=== PATIENT | male | born 1965 | race Caucasian/White ===

== ENCOUNTER 2024-12-21 21:26 | Emergency (ER) | payer OTHER, SELFPAY ==
[2024-12-21 21:27] VITALS: BP 168/92; PULSE 80; RESP 18; TEMP 36.7; O2SAT 98; BMI 36.2
--- NOTE | 2024-12-21 22:00 | RAD_ITS ---
PROCEDURE: RIGHT ELBOW MIN 3 VIEWS 12/21/2024 REASON FOR EXAM: FALL TECHNIQUE: RIGHT ELBOW MIN 3 VIEWS COMPARISON: None. FINDINGS: Amorphous calcific density/bony fragment in the dorsal elbow soft tissues posterior to the distal humerus, which is acutely avulsed from the dorsal olecranon process, consistent with acute avulsion of triceps tendon with displaced enthesopathic spur fracture fragment. No additional acute fracture, or dislocation is present. Preserved joint spaces. No joint effusion. Soft tissue swelling along the dorsal aspect of the elbow and upper forearm. RAD/Elbow min 3 Views IMPRESSION: Acute displaced/retracted avulsion fracture of enthesopathic spur fragments fro m the dorsal olecranon process at the triceps tendon insertion. Presumed at least partial triceps rupture. Reading Location: [id number]
--- NOTE | 2024-12-21 22:00 | RAD_ITS ---
PROCEDURE: RIGHT ELBOW MIN 3 VIEWS 12/21/2024 REASON FOR EXAM: FALL TECHNIQUE: RIGHT ELBOW MIN 3 VIEWS COMPARISON: None. FINDINGS: Amorphous calcific density/bony fragment in the dorsal elbow soft tissues posterior to the distal humerus, which is acutely avulsed from the dorsal olecranon process, consistent with acute avulsion of triceps tendon with displaced enthesopathic spur fracture fragment. No additional acute fracture, or dislocation is present. Preserved joint spaces. No joint effusion. Soft tissue swelling along the dorsal aspect of the elbow and upper forearm. RAD/Elbow min 3 Views IMPRESSION: Acute displaced/retracted avulsion fracture of enthesopathic spur fragments fro m the dorsal olecranon process at the triceps tendon insertion. Presumed at least partial triceps rupture. Reading Location: [id number]
--- OUTSIDE RECORDS SUMMARY | 2024-12-21 22:17 | XMS RPT_ITS | CCD ---
Author Organization [facility] Care Team Providers Care Electrical Maintenance Engineer Name Role Phone HILLS, KAYLYN Admitting Unavailable HILLS, KAYLYN Primary Care Unavailable HILLS, KAYLYN Consulting Unavailable HILLS, KAYLYN Attending Unavailable PROVIDER, UNKNOWN Consulting Unavailable HILLS, KAYLYN Primary Care Unavailable HILLS, KAYLYN Consulting Unavailable HILLS, KAYLYN Attending Unavailable HILLS, KAYLYN Admitting Unavailable PROVIDER, UNKNOWN Consulting Unavailable Jazmine RN, Maria Elena Wallis Unavailable Unavailabl e Dami Good DO Primary Care Provider [facility] BRANCH MAKER.Lila CASTILLO Unavailable [facility] BRANCH MAKER.Meg CASTILLO Unavailable DAMI GOOD Primary Care Unavailable JENNA LEONARD Attending Unavailable DAMI GOOD Referring Unavailable DAMI GOOD Attending Unavailable TESTJASMIN LEYVA Attending Unavailable TESTRAKEJASMIN Referring Unavailable JESSE TORRES Referring Unavailable DOMINIQUE, JESSE Attending Unavailable SELF Referring Unavailable JESSE TORRES Attending Unavailable HARINI MARIANO Referring Unavailable MONTSERRAT, HARINI Referring Unavailable HARINI MARIANO Attending Unavailable JOHN ANDERSON Referring Unavailable SELF Referring Unavailable JOHN ANDERSON Attending Unavailable CLARK KUHN Attending Unavailable JENNA LEONARD Referring Unavailable DAMI GOOD Primary Care Unavailable Allergies Allergy Classification Reported Allergen(s) Allergy Type Date of Onset Reaction(s) Facility (1 source) Penicillin Drug Allergy [facility] Repository (20 sources) Penicillins; Translations: [PENICILLINS] Drug Allergy 07-31-2024 Anaphylaxis [facility] (8 sources) Lisinopril; Translations: [LISINOPRIL] Drug Allergy 11-10-2024 Intolerance [facility] Medications Current Medications Medication Drug Class(es) Dates Sig (Normalized) Sig (Original) amLODIPine 5 mg oral tablet (20 sources) Dihydropyridine Calcium Channel All Start: 11-11-2024 End: 03-07-2025 take 1 tablet by mouth twice daily amLODIPine (NORVASC) 5 mg tablet Indications: Hypertension, essential Take 1 tablet by mouth two times a day. 180 tablet 12/07/2024 11:00 AM EDT 11/25/2024 03/07/2025 Active Start: 09-14-2024 End: 11-10-2024 take 1 tablet by mouth once daily amLODIPine (NORVASC) 5 mg tablet Take 1 tablet by mouth once daily. 90 tablet 1 11/04/2024 11/10/2024 Discontinued Start: 09-03-2023 End: 09-09-2024 take 1 tablet by mouth twice daily in the evening amLODIPine (NORVASC) 5 mg tablet Take 1 tablet by mouth twice daily 180 tablet 03/18/2024 1:21 PM EST 03/12/2024 09/09/2024 Discontinued (Course of therapy completed) Start: 06-06-2023 End: 09-09-2024 take 1 tablet by mouth once daily in the evening amLODIPine (NORVASC) 5 mg tablet TAKE 1 TABLET BY MOUTH EVERY DAY 90 tablet 3 07/22/2023 4:05 PM EDT 06/06/2023 09/09/2024 Discontinued (Course of therapy completed) losartan potassium 100 mg oral tablet (20 sources) Angiotensin 2 Receptor All Start: 06-03-2023 End: 11-25-2024 take 1 tablet by mouth once daily losartan (COZAAR) 100 mg tablet Take 1 tablet by mouth once daily. 90 tablet 3 11/30/2024 10:59 AM EDT 11/25/2024 Active metFORMIN hydrochloride 500 mg oral tablet (20 sources) Biguanide Start: 11-04-2024 End: 11-25-2024 take 1 tablet by mouth twice daily at mealtime metFORMIN (GLUCOPHAGE) 500 mg tablet Take 1 tablet by mouth two times a day with meals. 180 tablet 3 11/30/2024 10:59 AM EDT 11/25/2024 Active Start: 09-03-2023 End: 09-09-2024 take 1 tablet by mouth twice daily in the morning metFORMIN ER (GLUCOPHAGE XR) 500 mg 24 hr tablet Take 1(one) tablet by mouth two times a day. 180 tablet 06/09/2024 8:22 AM EST 05/22/2024 09/09/2024 Discontinued (Course of therapy completed) Completed/Discontinued Medications Medication Drug Class(es) Dates Sig (Normalized) Sig (Original) 30 ml bupivacaine hydrochloride 5 mg/ml injection (2 sources) Amide Local Anesthetic Start: 09-09-2024 End: 09-09-2024 BUPivacaine (PF) 0.5 % (5 mg/mL) 4 mL injection Start: 09-09-2024 End: 09-09-2024 4 mL, Injection - FOR ORTHO USE ONLY, ONCE, 1 dose, Starting on Sat09/09/24 at 1453, Until Sat09/09/24 at 145 1 ml dexamethasone phosphate 4 mg/ml injection (2 sources) Corticosteroid Start: 09-09-2024 End: 09-09-2024 dexAMETHasone sodium phosphate 4 mg injection (DECADRON) Start: 09-09-2024 End: 09-09-2024 4 mg, Injection - FOR ORTHO USE ONLY, ONCE, 1 dose, Starting on Sat09/09/24 at 1453, Until Sat09/09/24 at 1453 doxycycline monohydrate 100 mg oral tablet (2 sources) Tetracycline-class Drug Start: 09-02-2024 End: 09-07-2024 take 1 tablet by mouth twice daily doxycycline monohydrate 100 mg tablet Indications: Open wound Take 1 tablet by mouth two times a day for 5 days. 10 tablet 09/02/2024 09/07/2024 Discontinued (Course of therapy completed) 10 ml lidocaine hydrochloride 10 mg/ml injection (2 sources) Antiarrhythmic, Amide Local Anesthetic Start: 09-09-2024 End: 09-09-2024 lidocaine (PF) 10 mg/mL (1 %) 4 mL injection (XYLOCAINE) Start: 09-09-2024 End: 09-09-2024 4 mL, Injection - FOR ORTHO USE ONLY, ONCE, 1 dose, Starting on Sat09/09/24 at 1453, Until Sat09/09/24 at 1453 1 ml triamcinolone acetonide 40 mg/ml injection (2 sources) Corticosteroid Start: 09-09-2024 End: 09-09-2024 triamcinolone acetonide 40 mg injection (KeNALog 40) Start: 09-09-2024 End: 09-09-2024 40 mg, Injection - FOR ORTHO USE ONLY, ONCE, 1 dose, Starting on Sat09/09/24 at 1453, Until Sat09/09/24 at 1453 Problems Active Problems Problem Classification Problem Date Documented Da te Episodic/Chronic Acquired foot deformities (2 sources) Toe joint rigid; Translations: [Hallux rigidus, left foot] Onset: 10-08-2024 10-08-2024 Chronic Acquired foot deformities (2 sources) Toe joint rigid; Translations: [Hallux rigidus, right foot] Onset: 10-08-2024 10-08-2024 Chronic Allergic reactions (2 sources) Allergy to nut; Translations: [Allergy to other foods] Onset: 11-07-2024 11-04-2024 Episodic Blindness and vision defects (3 sources) Bilateral myopia of eyes; Translations: [Myopia, bilateral] 07-31-2024 Episodic Diabetes mellitus with complications (3 sources) Type 2 diabetes mellitus with ketoacidosis without coma; Translations: [Polyneuropathy due to type 2 diabetes mellitus] Onset: 06-11-2023 10-08-2024 Chronic Diabetes mellitus without complication (14 sources) Diabetes mellitus type 2 without retinopathy; Translations: [Type 2 diabetes mellitus without complications] Onset: 01-01-2023 07-31-2024 Chronic Disorders of lipid metabolism (2 sources) Dyslipidemia; Translations: [Hyperlipidemia, unspecified] Onset: 11-07-2024 11-04-2024 Chronic Essential hypertension (4 sources) Essential hypertension; Translations: [Essential (primary) hypertension] Onset: 11-07-2024 11-04-2024 Chronic Joint disorders and dislocations; trauma-related (6 sources) Derangement of medial meniscus of right knee; Translations: [Other meniscus derangements, unspecified medial meniscus, right knee] Onset: 11-04-2024 09-18-2024 Chronic Other injuries and conditions due to external causes (3 sources) Open wound; Translations: [Other injury of unspecified body region, initial encounter] 09-02-2024 Episodic Other injuries and conditions due to external causes (5 sources) Injury of upper extremity; Translations: [Unspecified injury of right shoulder and upper arm, initial encounter] 12-20-2024 Episodic Other injuries and conditions due to external causes (1 source) Unspecified injury of right shoulder and upper arm, initial encounter; Translations: [Upper limb injury, right, initial encounter] Onset: 12-20-2024 Episodic Other non-traumatic joint disorders (1 source) Effusion of right knee joint; Translations: [Effusion, right knee] 09-09-2024 Episodic Other screening for suspected conditions (not mental disorders or infectious disease) (2 sources) Patient encounter status; Translations: [Encounter for screening for malignant neoplasm of prostate] Onset: 11-07-2024 11-04-2024 Episodic Superficial injury; contusion (2 sources) Contusion of right elbow; Translations: [Contusion of right elbow, initial encounter] Onset: 12-20-2024 12-20-2024 Episodic Past or Other Problems Problem Classification Problem Date Documented Da te Episodic/Chronic Open wounds of extremities (2 sources) Laceration of finger without foreign body; Translations: [Laceration without foreign body of right index finger with damage to nail, initial encounter] Onset: 09-09-2024 09-09-2024 Episodic Other connective tissue disease (1 source) Pain in unspecified toe(s); Translations: [Pain in unspecified toe(s)] Onset: 09-27-2023 Episodic Other injuries and conditions due to external causes (1 source) Other injury of unspecified body region, initial encounter; Translations: [Open wound] Onset: 09-02-2024 Episodic Other non-traumatic joint disorders (3 sources) Pain in right knee; Translations: [Pain in joint, lower leg] Onset: 09-07-2024 09-07-2024 Episodic Other non-traumatic joint disorders (1 source) Effusion, right knee; Translations: [Effusion of right knee joint] Onset: 09-09-2024 Episodic Sprains and strains (2 sources) Sprain of right knee; Translations: [Sprain of unspecified site of right knee, initial encounter] Onset: 09-09-2024 09-09-2024 Episodic Unclassified (3 sources) Acute pain of right knee 09-07-2024 Results Test Name Value Interpretation Reference Range Facility [facility] 12-20-2024 CNOV Office Visit (WOUCA) CONNER KONG ([id number]) 1965 M Date Time Provider Department 12/20/24 2:45 PM JENNA LEONARD During your visit today, we recorded the following information about you: Temperature Pulse Respiration Blood pressure 97.2 degrees 80/minute 20/minute 148/86 Weight 102.6 kg Jenna Leonard APRN.SENIOR TELECOMMUNICATIONS TECHNICIAN 12/20/2024 3:44 PM Signed [facility] Subjective Conner Kong is a 59 year old male. Patient presents with: Trauma: Right elbow shooting up arm Trauma Right Elbow Pain: - Acute onset of right elbow pain following a fall in the garage a few hours ago. - Slipped while turning towards the refrigerator, landing on the buttocks and elbow. - Denies numbness or tingling. - Pain localized to the elbow, with tenderness noted. - Denies extending hand or wrist during the fall. Review of Systems Musculoskeletal: (+) elbow tenderness Neurological: (-) numbness, (-) tingling Objective BP 148/86 Pulse 80 Temp 36.2 ?C (97.2 ?F) Resp 20 Wt 102.6 kg (226 lb 3.1 oz) SpO2 97% BMI 34.28 kg/m? PAST MEDICAL HISTORY[1] No past surgical history on file. ALLERGIES Penicillins and Lisinopril MEDICATIONS amLODIPine (NORVASC) 5 mg tablet Take 1 tablet by mouth two times a day. losartan (COZAAR) 100 mg tablet Take 1 tablet by mouth once daily. metFORMIN (GLUCOPHAGE) 500 mg tablet Take 1 tablet by mouth two times a day with meals. lancets ([employer]view DELLinkMe[employer] PLUS LANCET) 30 gauge Use as directed to test blood sugar twice daily FAMILY HISTORY[2] SOCIAL HISTORY[3] Physical Exam Cardiovascular: Rate and Rhythm: Normal rate. Pulses: Normal pulses. Pulmonary: Effort: Pulmonary effort is normal. Musculoskeletal: Right shoulder: Normal. Right elbow: Effusion present. Normal range of motion. Tenderness present in lateral epicondyle. Right forearm: Normal. Right wrist: Normal. Arms: { 1. Upper limb injury, right, initial encounter (S49.91XA) 2. Contusion of right elbow, initial encounter (S50.01XA) - Acute right elbow injury after fall onto concrete surface; pain localized to bursa region with full extension and rotation preserved. - Differential includes bursitis versus avulsion fracture. - Pending radiology read, patient declines posterior splint, patient put in sling. and Recording using Branch software for draft documentation of the visit was discussed with the patient/authorized public relations representative; all questions welcomed and answered. Patient/authorized public relations representative agreed to proceed MDM patient well-appearing nontoxic in no acute distress 59-year-old male that presents with a right contusion of his elbow. Avulsion fracture versus old previous injury. Patient put in a sling declines a long-arm splint. No concerns of neurovascular deficits, tendon rupture, or nerve impingement. Discussed Tylenol ibuprofen sling and to follow-up with Dr. Torres on Saturday at 3 PM did discuss he can access his MyChart for radiology read did discuss an overview x-ray in the presence of the patient based on my initial read. Any sudden increase in pain, or worsening symptoms return for reevaluation. Patient verbalized understanding and agreement this plan. [1] Past Medical History: No date: Diabetes mellitus (HCC) No date: Essential hypertension [2] Review of patient's family history indicates: Problem: Glaucoma Relation: Mother Age of Onset: (Not Specified) Problem: Colon Cancer Relation: Father Age of Onset: (Not Specified) Problem: Diabetes Relation: Maternal Grandmother Age of Onset: (Not Specified) [3] Social History Tobacco Use Smoking status: Never Smokeless tobacco: Never Vaping Use Vaping status: Never Used Substance Use Topics Alcohol use: Yes Comment: socially Drug use: Never Allergies As of Date: 12/20/2024 Noted Allergy Reaction PENICILLINS 07/31/2024 10 - Anaphylaxis LISINOPRIL 11/10/2024 5 - Intolerance Comments: Angio Edema Date Reviewed: 12/20/2024 Reviewed by: Sonya Cabezas MA - Fully Assessed Reason for Visit: Trauma [112] Cmt: Right elbow shooting up arm Primary Visit Diagnosis:Upper limb injury, right, initial encounter [S49.91XA] Other Visit Diagnosis:Contusion of right elbow, initial encounter [S50.01XA] Order(s):XR ELBOW SPECIAL VIEWS AP/LAT/OTHER RIGHT [7342305] Order #: [id number] FUTURE CONSULT TO ORTHOPAEDICS [9005] Order #: [id number]: 1 FUTURE Prescriptions as of 12/20/2024 - amLODIPine (NORVASC) 5 mg tablet Take 1 tablet by mouth two times a day. - losartan (COZAAR) 100 mg tablet Take 1 tablet by mouth once daily. - metFORMIN (GLUCOPHAGE) 500 mg tablet Take 1 tablet by mouth two times a day with meals. - lancets (Investview DELICA PLUS LANCET) 30 gauge Use as directed to test blood sugar twice daily Problem List As Of Date 12/20/2024 Noted Resolved Type 2 diabetes melli (more content not included)... Normal [facility] XR ELBOW 3V AP/LAT/OTHER RTo n 12-20-2024 XR ELBOW 3V AP/LAT/OTHER RT * * *Final Report* * * DATE OF EXAM: Dec 20 2024 3:14PM WOX [id number] - XR ELBOW 3V AP/LAT/OTHER RT / PROCEDURE REASON: Upper limb injury, right, initial encounter * * * * Physician Interpretation * * * * EXAMINATION: XR ELBOW 3V AP/LAT/OTHER RT CLINICAL HISTORY: Right elbow injury Technique: XR ELBOW 3V AP/LAT/OTHER RT -- RIGHT with 4 views on 4 images Comparison: None RESULT: No acute fracture or dislocation. Joint spaces are maintained. Small enthesophyte on the left lung process. IMPRESSION: No acute osseous abnormality Claims Clerk: PSCB Transcribe Date/Time: Dec 20 2024 4:06P Dictated by : SARAH SANDOVAL MD This examination was interpreted and the report reviewed and electronically signed by: SARAH SANDOVAL MD on Dec 20 2024 4:07PM EST [id number] Normal [facility] XR Elbow - right AP and Late ral and obliqueon 12-20-2024 IMPRESSION: No acute osseous abnormality Claims Clerk: PSCB Transcribe Date/Time: Dec 20 2024 4:06P Dictated by : SARAH SANDOVAL MD This examination was interpreted and the report reviewed and electronically signed by: SARAH SANDOVAL MD on Dec 20 2024 4:07PM EST DIVISION OF RADIOLOGY * * *Final Report* * * DATE OF EXAM: Dec 20 2024 3:14PM WOX [id number] - XR ELBOW 3V AP/LAT/OTHER RT / PROCEDURE REASON: Upper limb injury, right, initial encounter * * * * Physician Interpretation * * * * EXAMINATION: XR ELBOW 3V AP/LAT/OTHER RT CLINICAL HISTORY: Right elbow injury Technique: XR ELBOW 3V AP/LAT/OTHER RT -- RIGHT with 4 views on 4 images Comparison: None RESULT: No acute fracture or dislocation. Joint spaces are maintained. Small enthesophyte on the left lung process. DIVISION OF RADIOLOGY Provider, [facility] - 12/20/2024 * * *Final Report* * * DATE OF EXAM: Dec 20 2024 3:14PM WOX [id number] - XR ELBOW 3V AP/LAT/OTHER RT / PROCEDURE REASON: Upper limb injury, right, initial encounter * * * * Physician Interpretation * * * * EXAMINATION: XR ELBOW 3V AP/LAT/OTHER RT CLINICAL HISTORY: Right elbow injury Technique: XR ELBOW 3V AP/LAT/OTHER RT -- RIGHT with 4 views on 4 images Comparison: None RESULT: No acute fracture or dislocation. Joint spaces are maintained. Small enthesophyte on the left lung process. IMPRESSION IMPRESSION: No acute osseous abnormality Claims Clerk: MONSERRAT Transcribe Date/Time: Dec 20 2024 4:06P Dictated by : SARAH SANDOVAL MD This examination was interpreted and the report reviewed and electronically signed by: SARAH SANDOVAL MD on Dec 20 2024 4:07PM [facility] Radiology Study observation (narrative) [facility] XR Elbow - right AP and Late ral and obliqueOrdered By: Ccf Provider on 12-20-2024 [facility] Lewis 11-10-2024 CNPN Telephone (FAMPWS) CONNER KONG ([id number]) 1965 M Date Time Provider Department 11/10/24 DAMI GOOD During your visit today, we recorded the following information about you: Germania White RN 11/10/2024 3:35 PM Signed Spouse (Shae) calls to report that [facility] will not allow patient to refill the amlodipine as it is too soon to refill based on prescription sent is for once daily. Order sent in is for once daily and patient takes amlodipine 5 mg twice daily as previously ordered by Kaylyn BILLINGSLEY. Pended request. Patient has two pills left. ROHIT Myers Alyson Taylor, APRN.CNP 11/11/2024 9:26 AM Signed PDMP website checked and validated. All prescriptions have been APPROPRIATELY filled. No suspicious activity was identified. 11/11/2024 by Mara White APRN.CNP The following approved medication requests have been transmitted electronically. Requested Prescriptions Signed Prescriptions Disp Refills amLODIPine (NORVASC) 5 mg tablet 180 tablet 0 Sig: Take 1 tablet by mouth two times a day. Authorizing Provider: MARA WHITE APRN.CNP Allergies As of Date: 11/10/2024 Noted Allergy Reaction PENICILLINS 07/31/2024 10 - Anaphylaxis LISINOPRIL 11/10/2024 5 - Intolerance Comments: Angio Edema Date Reviewed: 11/04/2024 Reviewed by: Danielle Mccall LPN - Fully Assessed Reason for Visit: Medication Problem [65] Primary Visit Diagnosis:Hypertension, essential [I10] Order(s):amLODIPine (NORVASC) 5 mg tabletTake 1 tablet by mouth two times a day.Disp: 180 tabletRfl: 0 Prescriptions as of 11/11/2024 - amLODIPine (NORVASC) 5 mg tablet Take 1 tablet by mouth two times a day. - losartan (COZAAR) 100 mg tablet Take 1 tablet by mouth once daily. - metFORMIN (GLUCOPHAGE) 500 mg tablet Take 1 tablet by mouth two times a day with meals. - lancets (ONETOUCH DELICA PLUS LANCET) 30 gauge Use as directed to test blood sugar twice daily Problem List As Of Date 11/10/2024 Noted Resolved Type 2 diabetes mellitus (HCC) [E11.9] 01/01/2023 Prescriptions ordered this encounter Disp Refills Start End AMLODIPINE 5 MG TABLET 180 * 0 11/11/2024 02/09/2025 Route: PO Sig: Take 1 tablet by mouth two times a day. Medications Discontinued During This Encounter Prescriptions - amLODIPine (NORVASC) 5 mg tablet (Discontinued) Take 1 tablet by mouth once daily. Encounter Status:Closed by MARA WHITE on 11/11/24 Normal [facility] ALBUMIN/CREATININE RATIO, UR INEon 11-07-2024 Albumin DL <= 20 mg/L (U) [Mass/Vol] mg/dL Normal [facility] 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: Order Comment: Speci men Type: URINE SPECIMENOrdering Facility: [facility] Address: [address] [place] [address] Performed By: #### U ACR ####[facility] LABCLIA [id number] [place] [address] [place] Albumin/Creatinine (U) [Mass ratio] <4 Normal <30 [facility] 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: Order Comment: Speci men Type: URINE SPECIMENOrdering Facility: [facility] Address: [address] [place] [address] Result Comment: Adul t Male and Female Nephrotic Criteria: <30 mg/g is considered normal to mildly increased 30-300 mg/g is considered moderately increased >300 mg/g is considered severely increased KDIGO. (2013). KDIGO 2012 Clinical Practice Guideline for the Evaluation and Management of Chronic Kidney Disease. Official Journal of the International Society of Nephrology, 3(1), 1-150. Performed By: #### U ACR ####[facility] LABCLIA [id number] [place] [id number] [place] Creatinine (U) [Mass/Vol] 272.7 mg/dL Normal 20.0-300.0 [facility] 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: Order Comment: Speci men Type: URINE SPECIMENOrdering Facility: [facility] Address: [address] [place] [address] Performed By: #### U ACR ####[facility] LABCLIA [id number] [address] [place] [address] [place] CBC W Auto Differential pane l (Bld)on 11-07-2024 Basophils (Bld) [#/Vol] 0.05 10*3/uL Normal <0.11 [facility] 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: Order Comment: Speci men Type: BLOOD SPECIMENOrdering Facility: [facility] Address: [address] [place] [address] Performed By: #### 5 7021-8 ####[facility] LABCLIA [id number] [address], [facility] [place] Basophils/100 WBC (Bld) 0.9 % Normal [facility] 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: Order Comment: Speci men Type: BLOOD SPECIMENOrdering Facility: [facility] Address: [address] [place] [address] Performed By: #### 5 7021-8 ####[facility] LABCLIA [id number] [address], [place] [address] [place] Differential cell count method Nom (Bld) Auto Normal [facility] 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: Order Comment: Speci men Type: BLOOD SPECIMENOrdering Facility: [facility] Address: [address] [place] [address] Performed By: #### 5 7021-8 ####[facility] LABCLIA [id number] [address], [facility] [place] Eosinophils (Bld) [#/Vol] 0.17 10*3/uL Normal <0.46 [facility] 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: Order Comment: Speci men Type: BLOOD SPECIMENOrdering Facility: [facility] Address: [address] [place] [address] Performed By: #### 5 7021-8 ####[facility] LABCLIA [id number] [address], [facility]95 [place] Eosinophils/100 WBC (Bld) 3.2 % Normal [facility] 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: Order Comment: Speci men Type: BLOOD SPECIMENOrdering Facility: [facility] Address: [address] [place] [address] Performed By: #### 5 7021-8 ####[facility] LABIA [id number] [place] [address] [place] Erythrocyte distribution width (RBC) [Ratio] 13.7 % Normal 11.5-15.0 [facility] 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: Order Comment: Speci men Type: BLOOD SPECIMENOrdering Facility: [facility] Address: [address] [place] [address] Performed By: #### 5 7021-8 ####[facility] LABIA [id number] [place] [address] [place] Hematocrit (Bld) [Volume fraction] 45.0 % Normal 39.0-51.0 [facility] 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: Order Comment: Speci men Type: BLOOD SPECIMENOrdering Facility: [facility] Address: [address] [place] [address] Performed By: #### 5 7021-8 ####[facility] LABIA [id number] [place] [address] [place] Hemoglobin (Bld) [Mass/Vol] 14.5 g/dL Normal 13.0-17.0 [facility] 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: Order Comment: Speci men Type: BLOOD SPECIMENOrdering Facility: [facility] Address: [address] [place] [address] Performed By: #### 5 7021-8 ####[facility] [facility] [id number] [place] [address] [place] Immature granulocytes (Bld) [#/Vol] 0.05 10*3/uL Normal <0.10 [facility] 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: Order Comment: Speci men Type: BLOOD SPECIMENOrdering Facility: [facility] Address: [address] [place] [address] Performed By: #### 5 7021-8 ####[facility] LABCLIA [id number] [place] [address] [place] Immature granulocytes/100 WBC (Bld) 0.9 % Normal [facility] 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: Order Comment: Speci men Type: BLOOD SPECIMENOrdering Facility: [facility] Address: [address] [place] [address] Performed By: #### 5 7021-8 ####[facility]IA [id number] [place] [address] [place] Lymphocytes (Bld) [#/Vol] 1.46 10*3/uL Normal 1.00-4.00 [facility] 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: Order Comment: Speci men Type: BLOOD SPECIMENOrdering Facility: [facility] Address: [address] [place] [address] Performed By: #### 5 7021-8 ####[facility]IA [id number] [place] [address] [place] Lymphocytes/100 WBC (Bld) 27.2 % Normal [facility] 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: Order Comment: Speci men Type: BLOOD SPECIMENOrdering Facility: [facility] Address: [address] [place] [address] Performed By: #### 5 7021-8 ####[facility]IA [id number] [place] [address] [place] MCH (RBC) [Entitic mass] 27.8 pg Normal 26.0-34.0 [facility] 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: Order Comment: Speci men Type: BLOOD SPECIMENOrdering Facility: [facility] Address: [address] [place] [address] Performed By: #### 5 7021-8 ####[facility]IA [id number] [place] [id number] [place] MCHC (RBC) [Mass/Vol] 32.2 g/dL Normal 30.5-36.0 [facility] 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: Order Comment: Speci men Type: BLOOD SPECIMENOrdering Facility: [facility] Address: [address] [place] [address] Performed By: #### 5 7021-8 ####[facility] LABCLIA [id number] [place] [address] [place] MCV (RBC) [Entitic vol] 86.2 fL Normal 80.0-100.0 [facility] 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: Order Comment: Speci men Type: BLOOD SPECIMENOrdering Facility: [facility] Address: [address] [place] [address] Performed By: #### 5 7021-8 ####[facility] LABCLIA [id number] [place] [address] [place] Monocytes (Bld) [#/Vol] 0.51 10*3/uL Normal <0.87 [facility] 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: Order Comment: Speci men Type: BLOOD SPECIMENOrdering Facility: [facility] Address: [address] [place] [address] Performed By: #### 5 7021-8 ####[facility] LABCLIA [id number] [place] [address] [place] Monocytes/100 WBC (Bld) 9.5 % Normal [facility] 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: Order Comment: Speci men Type: BLOOD SPECIMENOrdering Facility: [facility] Address: [address] [place] [address] Performed By: #### 5 7021-8 ####[facility] LABCLIA [id number] [place] [address] [place] Neutrophils (Bld) [#/Vol] 3.13 10*3/uL Normal 1.45-7.50 [facility] 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: Order Comment: Speci men Type: BLOOD SPECIMENOrdering Facility: [facility] Address: [address] [place] [address] Performed By: #### 5 7021-8 ####[facility] LABCLIA [id number] [place] [address] [place] Neutrophils/100 WBC (Bld) 58.3 % Normal [facility] 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: Order Comment: Speci men Type: BLOOD SPECIMENOrdering Facility: [facility] Address: [address] [place] [address] Performed By: #### 5 7021-8 ####[facility] LABCLIA [id number] [place] [address] [place] Nucleated RBC (Bld) [#/Vol] 10*3/uL Normal <0.01 [facility] 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: Order Comment: Speci men Type: BLOOD SPECIMENOrdering Facility: [facility] Address: [address] [place] [address] Performed By: #### 5 7021-8 ####[facility]IA [id number] [place] [address] [place] Nucleated RBC/100 WBC (Bld) [Ratio] 0.0 /100 WBC Normal [facility] 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: Order Comment: Speci men Type: BLOOD SPECIMENOrdering Facility: [facility] Address: [address] [place] [address] Performed By: #### 5 7021-8 ####[facility] LABCLIA [id number] [place] [address] [place] Platelet mean volume (Bld) [Entitic vol] 9.7 fL Normal 9.0-12.7 [facility] 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: Order Comment: Speci men Type: BLOOD SPECIMENOrdering Facility: [facility] Address: [address] [place] [address] Performed By: #### 5 7021-8 ####[facility] LABCLIA [id number] [place] [address] [place] Platelets (Bld) [#/Vol] 197 10*3/uL Normal 150-400 [facility] 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: Order Comment: Speci men Type: BLOOD SPECIMENOrdering Facility: [facility] Address: [address] [place] [address] Performed By: #### 5 7021-8 ####[facility] [id number] [place] [address] [place] RBC (Bld) [#/Vol] 5.22 10*6/uL Normal 4.20-6.00 [facility] 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: Order Comment: Speci men Type: BLOOD SPECIMENOrdering Facility: [facility] Address: [address] [place] [address] Performed By: #### 5 7021-8 ####[facility] [id number] [place] [address] [place] WBC (Bld) [#/Vol] 5.37 10*3/uL Normal 3.70-11.00 [facility] 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: Order Comment: Speci men Type: BLOOD SPECIMENOrdering Facility: [facility] Address: [address] [place] [address] Performed By: #### 5 7021-8 ####[facility] [id number] [place] [address] [place] Cashew nut IgE Qnon 11-08-19 25 Cashew nut IgE Qn (S) <0.35 Normal <0.35 [facility] 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: Order Comment: Speci men Type: BLOOD SPECIMENOrdering Facility: [facility] Address: [address] [place] [address] Performed By: #### 7 613-3, 6206-7, 6718-1, 6273-7 ####[facility]IA [id number] [place] [address] [place] Cashew nut IgE Qn (S)on 10-12 Cashew nut IgE RAST class (S) Class 0 Normal Class 0 [facility] 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: Order Comment: Speci men Type: BLOOD SPECIMENOrdering Facility: [facility] Address: [address] [place] [address] Performed By: #### 7 613-3, 6206-7, 6718-1, 6273-7 ####[facility] LABCLIA [id number] [place] [id number] [place] [facility] Comprehensive metabolic 2000 panelon 11-07-2024 Albumin [Mass/Vol] 4.5 g/dL Normal 3.9-4.9 [facility] 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: Order Comment: Speci men Type: BLOOD SPECIMENOrdering Facility: [facility] Address: [address] [place] [address] Performed By: #### 3 016-3, 27963-8, 74225-5 ####[facility] LABCLIA [id number] [place] [address] [place] ALP [Catalytic activity/Vol] 58 U/L Normal 38-113 [facility] 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: Order Comment: Speci men Type: BLOOD SPECIMENOrdering Facility: [facility] Address: [address] [place] [address] Performed By: #### 3 016-3, 07093-7, 76845-7 ####[facility] LABCLIA [id number] [facility] [address], [facility]95 [place] ALT [Catalytic activity/Vol] 25 U/L Normal 10-54 [facility] 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: Order Comment: Speci men Type: BLOOD SPECIMENOrdering Facility: [facility] Address: [address] [place] [address] Performed By: #### 3 016-3, 49955-8, 49406-5 ####[facility]CLIA [id number] [facility] [address], [facility]95 [place] Anion gap [Moles/Vol] 12 mmol/L Normal 8-15 [facility] 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: Order Comment: Speci men Type: BLOOD SPECIMENOrdering Facility: [facility] Address: [address] [place] [address] Performed By: #### 3 016-3, , ####[facility] LABCLIA [id number] [facility] [address] [address] [place] AST [Catalytic activity/Vol] 25 U/L Normal 14-40 [facility] 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: Order Comment: Speci men Type: BLOOD SPECIMENOrdering Facility: [facility] Address: [address] [place] [address] Performed By: #### 3 016-3, , ####[facility] LABCLIA [id number] [place] [address] [place] Bilirubin [Mass/Vol] 0.6 mg/dL Normal 0.2-1.3 [facility] 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: Order Comment: Speci men Type: BLOOD SPECIMENOrdering Facility: [facility] Address: [address] [place] [address] Performed By: #### 3 016-3, , ####[facility] LABCLIA [id number] [address] [address] [place] Calcium [Mass/Vol] 9.6 mg/dL Normal 8.5-10.2 [facility] 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: Order Comment: Speci men Type: BLOOD SPECIMENOrdering Facility: [facility] Address: [address] [place] [address] Performed By: #### 3 016-3, 75664-3, ####[facility] LABCLIA [id number] [facility] [address] [place] [address] [place] Chloride [Moles/Vol] 103 mmol/L Normal 98-107 [facility] 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: Order Comment: Speci men Type: BLOOD SPECIMENOrdering Facility: [facility] Address: [address] [place] [address] Performed By: #### 3 016-3, 72074-5, ####[facility] [id number] [place] [address] [place] CO2 [Moles/Vol] 25 mmol/L Normal 22-30 [facility] 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: Order Comment: Speci men Type: BLOOD SPECIMENOrdering Facility: [facility] Address: [address] [place] [address] Performed By: #### 3 016-3, 58871-0, ####[facility] [id number] [place] [address] [place] Creatinine [Mass/Vol] 0.89 mg/dL Normal 0.73-1.22 [facility] 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: Order Comment: Speci men Type: BLOOD SPECIMENOrdering Facility: [facility] Address: [address] [place] [address] Performed By: #### 3 016-3, 64120-2, ####[facility] [id number] [address] [facility] Creatinine and Glomerular filtration rate.predicted panel (S/P/Bld) 100 mL/min/1.73m??? Normal >=60 [facility] 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: Order Comment: Speci men Type: BLOOD SPECIMENOrdering Facility: [facility] Address: [address] [place] [address] Result Comment: Nena mated Glomerular Filtration Rate (eGFR) is calculated using the 2020 CKD-EPI creatinine equation. This equation utilizes serum creatinine, sex, and age as parameters. The creatinine assay has traceable calibration to isotope dilution-mass spectrometry. Refer to KDIGO guidelines for clinical interpretation. In patients with unstable renal function, e.g. those with acute kidney injury, the eGFR may not accurately reflect actual GFR. Performed By: #### 3 016-3, 59349-3, 17002-1 ####[facility] LABCLIA [id number] [address] [address] [place] Glucose [Mass/Vol] 123 mg/dL High 74-99 [facility] 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: Order Comment: Speci men Type: BLOOD SPECIMENOrdering Facility: [facility] Address: [address] [place] [address] Result Comment: The [place] Diabetes Association (ADA) provides guidance for cutoff values for fasting glucose and random glucose. The ADA defines fasting as no caloric intake for at least 8 hours. Fasting plasma glucose results between 100 to 125 mg/dL indicate increased risk for diabetes (prediabetes). Fasting plasma glucose results greater than or equal to 126 mg/dL meet the criteria for diagnosis of diabetes. In the absence of unequivocal hyperglycemia, results should be confirmed by repeat testing. In a patient with classic symptoms of hyperglycemia or hyperglycemic crisis, random plasma glucose results greater than or equal to 200 mg/dL meet the criteria for diagnosis of diabetes. Reference: Standards of Medical Care in Diabetes 2016, [place] Diabetes Association. Diabetes Care. 2016.39(Suppl 1). Performed By: #### 3 016-3, 11226-7, 76438-0 ####[facility]IA [id number] [place] [id number] [place] Potassium [Moles/Vol] 4.7 mmol/L Normal 3.7-5.1 [facility] 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: Order Comment: Speci men Type: BLOOD SPECIMENOrdering Facility: [facility] Address: [address] [place] [address] Performed By: #### 3 016-3, 70569-1, 16763-4 ####[facility] LABIA [id number] [address] [address] [place] Protein [Mass/Vol] 6.7 g/dL Normal 6.3-8.0 [facility] 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: Order Comment: Speci men Type: BLOOD SPECIMENOrdering Facility: [facility] Address: [address] [place] [address] Performed By: #### 3 016-3, 48031-2, 19622-1 ####[facility]IA [id number] [address] [address] [place] Sodium [Moles/Vol] 140 mmol/L Normal 136-144 [facility] 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: Order Comment: Speci men Type: BLOOD SPECIMENOrdering Facility: [facility] Address: [address] [place] [address] Performed By: #### 3 016-3, 98772-3, 19098-2 ####[facility]IA [id number] [address] [address] [place] Urea nitrogen [Mass/Vol] 15 mg/dL Normal 9-24 [facility] 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: Order Comment: Speci men Type: BLOOD SPECIMENOrdering Facility: [facility] Address: [address] [place] [address] Performed By: #### 3 016-3, 61547-4, 69960-9 ####[facility] [id number] [address] [address] [place] HbA1c (Bld)on 11-07-2024 Average glucose Estimated from glycated hemoglobin (Bld) [Mass/Vol] 140 mg/dL Normal [facility] 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: Order Comment: Speci men Type: BLOOD SPECIMENOrdering Facility: [facility] Address: [address] [place] [address] Result Comment: eAG: (Estimated average glucose) is a calculated value from HgbA1c and is public relations representative of the average blood glucose level in the last 2-3 month period. Performed By: #### 5 5454-3 ####[facility] [id number] [place] [id number] [place] HbA1c (Bld) [Mass fraction] 6.5 % High 4.3-5.6 [facility] 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: Order Comment: Speci men Type: BLOOD SPECIMENOrdering Facility: [facility] Address: [address] [place] [address] Result Comment: Amer ican Diabetes Association guidelines indicate that patients with HgbA1c in the range 5.7-6.4% are at increased risk for development of diabetes, and intervention by lifestyle modification may be beneficial. HgbA1c greater or equal to 6.5% is considered diagnostic of diabetes. Performed By: #### 5 5454-3 ####[facility] LABCLIA [id number] [place] [address] [place] Lipid 1996 panelon 5 Cholesterol [Mass/Vol] 175 mg/dL Normal <200 [facility] 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: Order Comment: Speci men Type: BLOOD SPECIMENOrdering Facility: [facility] Address: [address] [place] [address] Result Comment: <200 mg/dL, Desirable 200-239 mg/dL, Borderline high >239 mg/dL, High Performed By: #### 3 016-3, 68004-4, 87605-2 ####[facility] LABCLIA [id number] [place] [id number] [place] Cholesterol in HDL [Mass/Vol] 48 mg/dL Normal >39 [facility] 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: Order Comment: Zeniai men Type: BLOOD SPECIMENOrdering Facility: [facility] Address: [address] [place] [address] Result Comment: 40-5 9 mg/dL, Acceptable >59 mg/dL, High: Negative risk factor for coronary heart disease <40 mg/dL, Low: Positive risk factor for coronary heart disease Performed By: #### 3 016-3, 12828-8, 08105-3 ####[facility] LABCLIA [id number] [place] [id number] [place] Cholesterol in LDL [Mass/Vol] 117 mg/dL High <100 [facility] 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: Order Comment: Speci men Type: BLOOD SPECIMENOrdering Facility: [facility] Address: [address] [place] [address] Result Comment: <100 mg/dL, Optimal 100-129 mg/dL, Near optimal/above optimal 130-159 mg/dL, Borderline high 160-189 mg/dL, High >189 mg/dL, Very high Secondary prevention optimal LDL Cholesterol levels are recommended to be <70 mg/dL LDL cholesterol is calculated using the Marlow-NIH equation. Performed By: #### 3 016-3, 30903-0, 15452-2 ####[facility] LABCLIA [id number] [address] [address] [place] Cholesterol in LDL/Cholesterol in HDL [Mass ratio] 2.44 {ratio} Normal <2.54 [facility] 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: Order Comment: Speci men Type: BLOOD SPECIMENOrdering Facility: [facility] Address: [address] [place] [address] Result Comment: Kyle hoffmance: 1. National Cholesterol Education Program ATP III Guideline At-A-Glance Quick Desk Reference: National Heart, Lung, and Blood Howard. National Institutes of Health. 2001: NIH Publication No. 01-3305. 2. An International Atherosclerosis Society position paper: global recommendations for the management of dyslipidemia: executive summary, Atherosclerosis. 2014: 232(2):410-413. Performed By: #### 3 016-3, , ####[facility] LABIA [id number] [address] [address] [place] Cholesterol in VLDL [Mass/Vol] 9 mg/dL Normal <30 [facility] 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: Order Comment: Speci men Type: BLOOD SPECIMENOrdering Facility: [facility] Address: [address] [place] [address] Performed By: #### 3 016-3, 07380-7, ####[facility] LABCLIA [id number] [address] [address] [place] Cholesterol non HDL [Mass/Vol] 127 mg/dL Normal <130 [facility] 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: Order Comment: Speci men Type: BLOOD SPECIMENOrdering Facility: [facility] Address: [address] [place] [address] Result Comment: <130 mg/dL, Optimal 130-159 mg/dL, Near optimal/above optimal 160-189 mg/dL, Borderline high 190-219 mg/dL, High >219 mg/dL, Very high Secondary prevention optimal non HDL Cholesterol levels are recommended to be <100 mg/dL Performed By: #### 3 016-3, 29203-0, 35317-4 ####[facility] LABCLIA [id number] [facility] [address], [place] [address] [place] [facility] Cholesterol.total/C holesterol in HDL [Mass ratio] 3.65 {ratio} Normal <5.10 [facility] 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: Order Comment: Speci men Type: BLOOD SPECIMENOrdering Facility: [facility] Address: [address] [place] [address] Performed By: #### 3 016-3, 37143-2, 27522-8 ####[facility] LABCLIA [id number] [address], [address] STATES OF [facility] FASTING TIME 12 hrs Normal [facility] 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: Order Comment: Speci men Type: BLOOD SPECIMENOrdering Facility: [facility] Address: [address] [place] [address] Performed By: #### 3 016-3, 80666-0, 79717-8 ####[facility] LABCLIA [id number] [facility] [address], [facility]95 [place] Triglyceride [Mass/Vol] 51 mg/dL Normal <150 [facility] 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: Order Comment: Speci men Type: BLOOD SPECIMENOrdering Facility: [facility] Address: [facility] [place] [address] Result Comment: <150 mg/dL, Normal 150-199 mg/dL, Borderline high 200-499 mg/dL, High >499 mg/dL, Very high Performed By: #### 3 016-3, 74330-6, 26754-3 ####[facility] LABCLIA [id number] [facility] [address] [place] [address] [place] PSA/PROSTATE SPECIFIC ANTIGE N SCREENINGon 11-07-2024 Prostate specific Ag [Mass/Vol] 0.87 ng/mL Normal <2.60 [facility] 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: Order Comment: Speci men Type: BLOOD SPECIMENOrdering Facility: [facility] Address: [address] [place] [address] Result Comment: Tota l PSA test methodology used is the Electrochemiluminescence Immunoassay by [employer]. Total PSA values by differing methodologies cannot be interchanged. Performed By: #### P SAS1 ####[facility] [id number] [place] [address] [place] Peanut IgE Qnon 11-07-2024 Peanut IgE Qn (S) <0.10 Normal <0.10 [facility] 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: Order Comment: Speci men Type: BLOOD SPECIMENOrdering Facility: [facility] Address: [address] [place] [address] Performed By: #### 7 613-3, 6206-7, 6718-1, 6273-7 ####[facility] [id number] [place] [address] [place] Peanut IgE Qn (S)on 11-08-19 Peanut IgE RAST class (S) Class 0 Normal Class 0 [facility] 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: Order Comment: Speci men Type: BLOOD SPECIMENOrdering Facility: [facility] Address: [address] [place] [address] Performed By: #### 7 613-3, 6206-7, 6718-1, 6273-7 ####[facility] [id number] [place] [id number] [place] Pistachio IgE Qnon Pistachio IgE Qn (S) <0.35 Normal <0.35 [facility] 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: Order Comment: Speci men Type: BLOOD SPECIMENOrdering Facility: [facility] Address: [address] [place] [address] Performed By: #### 7 613-3, 6206-7, 6718-1, 6273-7 ####[facility] LABCLIA [id number] [place] [address] [place] Pistachio IgE Qn (S)on 11-07 Pistachio IgE RAST class (S) Class 0 Normal Class 0 [facility] 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: Order Comment: Speci men Type: BLOOD SPECIMENOrdering Facility: [facility] Address: [address] [place] [address] Performed By: #### 7 613-3, 6206-7, 6718-1, 6273-7 ####[facility] LABIA [id number] [place] [address] [place] TSH SerPl-aCncon 11-07-2024 TSH Qn 1.180 m[IU]/L Normal 0.270-4.200 [facility] 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: Order Comment: Speci men Type: BLOOD SPECIMENOrdering Facility: [facility] Address: [address] [place] [address] Performed By: #### 3 016-3, 26341-1, 42760-7 ####[facility] LABIA [id number] [place] [address] [place] Canalou IgE Qnon 11-07-2024 Canalou IgE Qn (S) <0.35 Normal <0.35 [facility] 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: Order Comment: Speci men Type: BLOOD SPECIMENOrdering Facility: [facility] Address: [address] [place] [address] Performed By: #### 7 613-3, 6206-7, 6718-1, 6273-7 ####[facility] LABCLIA [id number] [place] [id number] [place] Canal[place] IgE Qn (S)on 11-08-19 25 [place] IgE RAST class (S) Class 0 Normal Class 0 [facility] 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: Order Comment: Speci men Type: BLOOD SPECIMENOrdering Facility: [facility] Address: [address] [place] [address] Performed By: #### 7 613-3, 6206-7, 6718-1, 6273-7 ####[facility] LABCLIA [id number] LIZETH CROFT [address] OF [facility] CNOVon 11-04-2024 CNOV Office Visit (FAMPWS ) DILANCONNER ROSALES ([id number]) 1965 M Date Time Provider Department 11/04/24 3:20 PM [facility] During your visit today, we recorded the following information about you: Temperature Pulse Respiration Blood pressure 97 degrees 80/minute 12/minute 144/90 Weight Height 103.9 kg 1.73 m Dami Good DO 11/04/2024 6:24 PM Signed Patient presents with: Establish Care HPI: Conner Kong is a 59 year old male who presents to the office today for review of health conditions. Concerns today: Admits that he is working on improvements in his diet, working on weight loss, wanting to get off his metformin in the future. Trying to be more physically active Does struggle with chronic knee pain, diagnosed with medial meniscus tear, hasn't seen orthopedic surgeon but saw Dr. Torres for sports medicine. Not interested in surgical correction at this time, maybe in winter months. In the past, had throat swelling/angioedema SE, he thinks to a nut reaction, potentially pistachios, never has had lab testing for a food allergy for this concern. Also had SE with a previous BLOOD PRESSURE medication, thinks this was potentially lisinopril- will check previous medications. Mr. Kong has past history of diabetes. Since our last visit he denies excessive thirst or increased frequency of urination, chest pain or dyspnea , new or unusual visual symptoms, and low sugar/hypoglycemic reactions. Depression- no. Follows a diabetic diet most of the time. He is compliant with medication(s) and is tolerating med(s) without any side effects. He reports checking his glucose on a once a day schedule with sugars in the <150 range. Patient's last HgA1C was Hemoglobin A1C (%) Date Value 05/28/2023 8.4 04/11/2022 7.1 ) Last Ophthalmology exam was within the past 12 months Mr. Kong reports history of hyperlipidemia. Current therapy includes diet and exercise. Denies side effects of muscle weakness or achiness. His most recent lipid panels are reviewed. Cholesterol, Total (mg/dL) Date Value 05/28/2023 214 HDL Cholesterol (mg/dL) Date Value 05/28/2023 56 LDL Cholesterol, Calculated (mg/dL) Date Value 05/28/2023 136 Triglyceride (mg/dL) Date Value 05/28/2023 110 Mr. Kong indicates a history of hypertension and states that he is feeling well and denies any symptoms referable to elevated blood pressure. Specifically denies headache, chest pain, palpitations, dyspnea, and peripheral edema. Patient denies any side effects of his medication(s) and is compliant with their regimen. Last 3 Encounter BP Readings: Date: BP: 11/04/2024 144/90 09/07/2024 144/88 09/02/2024 132/82 He watches his diet for sodium, low fat and low cholesterol some of the time. He does not check BP's generally. Conner gets sporadic irregular exercise. PAST MEDICAL HISTORY Diagnosis Date Diabetes mellitus (HCC) Essential hypertension History reviewed. No pertinent surgical history. Social History Tobacco Use Smoking status: Never Smokeless tobacco: Never Vaping Use Vaping status: Never Used Substance Use Topics Alcohol use: Yes Comment: socially Drug use: Never FAMILY HISTORY Problem Relation Age of Onset Glaucoma Mother Colon Cancer Father Diabetes Maternal Grandmother Allergies: ALLERGIES Allergen Reactions Penicillins Anaphylaxis Current Meds: amLODIPine (NORVASC) 5 mg tablet Take 1 tablet by mouth once daily. losartan (COZAAR) 100 mg tablet Take 1 tablet by mouth once daily. metFORMIN (GLUCOPHAGE) 500 mg tablet Take 1 tablet by mouth two times a day with meals. lancets (TapZenTOUCH DELICA PLUS LANCET) 30 gauge Use as directed to test blood sugar twice daily Review of Systems: The remainder of the review of systems is negative. PE: 11/04/24 1523 BP: 144/90 Pulse: 80 Resp: 12 Temp: 36.1 ?C (97 ?F) TempSrc: Left Tympanic Weight: 103.9 kg (229 lb) Height: 173 cm (5' 8.11) Gen: AANDO, NAD, non-toxic appearing, Pleasant, cooperative HEENT: NT/AC, PERRLA, EOMs intact b/l, nares clear and patent b/l, pharynx without erythema, exudate or lesions. Uvula midline. EACs without erythema or debris. TMs pearly jewell with intact landmarks b/l. Neck: supple, No cervical LAD, no thyromegaly, no carotid bruits CV: RRR, normal S1 and S2, no murmurs, no gallops, no rubs, Pulses 2+ and symmetric in UE and LE b/l Lungs: normal respiratory effort, CTA b/l, no wheezing or rhonchi or rales Abd: soft, NT, ND, +BS, no hepatosplenomegaly MS: FROM all 4 extremities Neuro: CN II-XII intact b/l, strength 5/5 b/l UE and LE, DTRs 2/4 UE and LE, sensation intact. Skin: warm, dry, intact, No rashes or lesions on exposed skin. Foot exam: Monofilament wnl on right and left feet. No edema, normal pulses ASSESSMENT/PLAN: 1. Well adult ex (more content not included)... Normal [facility] CNOVon 10-08-2024 CNOV Office Visit (PODIWS ) CONNER KONG ([id number]) 1965 M Date Time Provider Department 10/08/24 1:30 PM TESTRAKE, JASMIN JIAN During your visit today, we recorded the following information about you: Payal Feng, RN 10/08/2024 2:40 PM Signed Patient presents with: Left Foot - New, Diabetic Foot Care Right Foot - New, Diabetic Foot Care Patient presents as new patient for diabetic foot care. Also due for diabetic foot exam. Denies any pain or problems. Jasmin Falcon 10/08/2024 2:04 PM Signed - Continue taking metformin as prescribed. - Avoid walking barefoot; wear shoes at all times, even when indoors. - Inspect your feet daily for any cuts, sores, calluses, or other changes. - Apply lotion to your feet daily to keep the skin moisturized (avoid putting lotion between toes). - Wear well-fitting, supportive shoes (for example, Ignacio, HOKA, Asics, New Balance). - Keep toenails trimmed straight across to prevent ingrown nails. - If you develop foot pain, increased skin thickening, bunion discomfort, open sores, or calluses, contact the clinic--x-rays or other treatments can be arranged. - Consider custom orthotics (covered by your [facility] insurance) if you experience foot, ankle, knee, or back pain to improve weight distribution. - Return in one year for your annual diabetic foot exam to monitor foot health and prevent complications. Diabetes Foot Care Instructions When you have diabetes, proper foot care is very important. Poor foot care may lead to amputation of a foot or leg. As a person with diabetes, you are more vulnerable to foot problems, because diabetes can damage your nerves and reduce blood flow to your feet. Here are some diabetes foot care tips to follow: Wash and Dry Your Feet Daily Use mild soaps Use warm water Pat your skin dry; do not rub. Thoroughly dry your feet. After washing, use lotion on your feet to prevent cracking. Do not put lotion between your toes. Examine Your Feet Each Day Check the tops and bottoms of your feet. Have someone else look at your feet if you cannot see them. Check for dry, cracked skin. Look for blisters, cuts, scratches, or other sores. Check for redness, increased warmth, or tenderness when touching any area of your feet. Check for ingrown toenails, corns, and calluses. If you get a blister or sore from your shoes, do not pop it. Apply a bandage and wear a different pair of shoes. Take Care of Your Toenails Cut toenails after bathing, when they are soft. Cut toenails straight across and smooth with a nail file. Avoid cutting into the corners of toes. Do not cut cuticles. If you have neuropathy (or decreased sensation in your feet) a shaper machine hand should always cut your toenails. Be Careful When Exercising Walk and exercise in comfortable shoes. Do not exercise when you have open sores on your feet. Protect Your Feet With Shoes and Socks Never go barefoot. Always protect your feet by wearing shoes or hard-soled slippers or footwear. Avoid shoes with high heels and pointed toes. Avoid shoes that expose your toes or heels (such as open-toed shoes or sandals). These types of shoes increase your risk for injury and potential infections. Try on new footwear with the type of socks you usually wear. Do not wear new shoes for more than an hour at a time. Change your socks daily. Look and feel inside your shoes before putting them on to make sure there are no foreign objects or rough areas. Avoid tight socks. Wear natural-fiber socks (cotton, wool, or a cotton-wool blend). Wear special shoes if your health care provider recommends them. Wear shoes/boots that will protect your feet from various weather conditions (cold, moisture, etc.). Make sure your shoes fit properly. If you have neuropathy (nerve damage), you may not notice that your shoes are too tight. Perform the footwear test described below. Footwear Test Use this simple test to see if your shoes fit correctly: Stand on a piece of paper. (Make sure you are standing and not sitting, because your foot changes shape when you stand.) Trace the outline of your foot. Trace the outline of your shoe. Compare the tracings: Is the shoe too narrow? Is your foot crammed into the shoe? The shoe should be at least 1/2 inch longer than your longest toe and as wide as your foot. Proper Shoe Choices The following types of shoes are best for people with diabetes Closed toes and heels Leather uppers without a seam inside At least 1/2 inch extra space at the end of your longest toe Inside of shoe should be soft with no rough areas Outer sole should be made of stiff material Shoes should be at least as wide as your feet Tips for Foot Care in Diabetes Don't wait to treat a minor foot problem if you have diabetes. Follow your health care provider's guidelines and f (more content not included)... Normal [facility] MR Knee - right WO contrasto n 10-06-2024 IMPRESSION: Incomplete radial tear in the body segment of the medial meniscus. Early chondral wear of the right knee as described. Claims Clerk: PSCB Transcribe Date/Time: Oct 06 2024 9:22A Dictated by : JESSICA FAUSTIN MD This examination was interpreted and the report reviewed and electronically signed by: JESSICA FAUSTIN MD on Oct 06 2024 9:27AM [facility] DIVISION OF RADIOLOGY * * *Final Report* * * DATE OF EXAM: Oct 06 2024 8:33AM [facility] 0213 - MRI KNEE WO IVCON RT / PROCEDURE REASON: Derangement of medial meniscus of right knee * * * * Physician Interpretation * * * * EXAMINATION: MRI RIGHT KNEE WITHOUT CONTRAST CLINICAL HISTORY: Derangement of medial meniscus of right knee TECHNIQUE: Routine non-contrast MRI of the knee MQ: MRK_2B COMPARISON: None RESULT: MENISCI: Medial Meniscus: Incomplete radial tear in the body with degenerative signal in the posterior horn Lateral Meniscus: Intact. LIGAMENTS: ACL: Intact PCL: Intact MCL: Intact LCL Complex: Intact CARTILAGE: Medial Femoral Condyle: Small area(s) of low grade (less than 50% thickness) partial thickness cartilage loss and or fissuring Medial Tibial Plateau: Small areas(s) of predominantly low grade (less than 50% thickness) cartilage loss and or fissuring with smaller area(s) of full thickness cartilage loss and or fissuring with reactive subchondral edema signal along the medial margin. Lateral Femoral Condyle: Small area(s) of low grade (less than 50% thickness) partial thickness cartilage loss and or fissuring Lateral Tibial Plateau: Normal Patella: Small area(s) of low grade (less than 50% thickness) partial thickness cartilage loss and or fissuring Trochlea: Single full-thickness fissure TENDONS: The distal quadriceps and patellar tendons are intact. The popliteus tendon is intact. BONES AND MARROW: No evidence of fracture or bone marrow replacing process. MUSCLES: Muscle bulk and signal intensity are normal. JOINT FLUID AND SYNOVIUM: Moderate joint effusion. Mild synovitis. No Woods's cyst. OTHER: Mild to moderate subcutaneous edema is present in the anterior aspect of the knee. Localizer images: No additional findings. DIVISION OF RADIOLOGY Provider, [facility] - 10/06/2024 * * *Final Report* * * DATE OF EXAM: Oct 06 2024 8:33AM [facility] 0213 - MRI KNEE WO IVCON RT / PROCEDURE REASON: Derangement of medial meniscus of right knee * * * * Physician Interpretation * * * * EXAMINATION: MRI RIGHT KNEE WITHOUT CONTRAST CLINICAL HISTORY: Derangement of medial meniscus of right knee TECHNIQUE: Routine non-contrast MRI of the knee MQ: MRK_2B COMPARISON: None RESULT: MENISCI: Medial Meniscus: Incomplete radial tear in the body with degenerative signal in the posterior horn Lateral Meniscus: Intact. LIGAMENTS: ACL: Intact PCL: Intact MCL: Intact LCL Complex: Intact CARTILAGE: Medial Femoral Condyle: Small area(s) of low grade (less than 50% thickness) partial thickness cartilage loss and or fissuring Medial Tibial Plateau: Small areas(s) of predominantly low grade (less than 50% thickness) cartilage loss and or fissuring with smaller area(s) of full thickness cartilage loss and or fissuring with reactive subchondral edema signal along the medial margin. Lateral Femoral Condyle: Small area(s) of low grade (less than 50% thickness) partial thickness cartilage loss and or fissuring Lateral Tibial Plateau: Normal Patella: Small area(s) of low grade (less than 50% thickness) partial thickness cartilage loss and or fissuring Trochlea: Single full-thickness fissure TENDONS: The distal quadriceps and patellar tendons are intact. The popliteus tendon is intact. BONES AND MARROW: No evidence of fracture or bone marrow replacing process. MUSCLES: Muscle bulk and signal intensity are normal. JOINT FLUID AND SYNOVIUM: Moderate joint effusion. Mild synovitis. No Woods's cyst. OTHER: Mild to moderate subcutaneous edema is present in the anterior aspect of the knee. Localizer images: No additional findings. IMPRESSION IMPRESSION: Incomplete radial tear in the body segment of the medial meniscus. Early chondral wear of the right knee as described. Claims Clerk: MONSERRAT Transcribe Date/Time: Oct 06 2024 9:22A Dictated by : JESSICA FAUSTIN MD This examination was interpreted and the report reviewed and electronically signed by: JESSICA FAUSTIN MD on Oct 06 2024 9:27AM EST [facility] Radiology Study observation (narrative) [facility] MR Knee - right WO contrastO rdered By: [facility] Provider on 10-06-2024 [facility] MRI KNEE WO IVCON RTon 10-06 MRI KNEE WO IVCON RT * * *Final Report* * * DATE OF EXAM: Oct 06 2024 8:33AM [facility] 0213 - MRI KNEE WO IVCON RT / PROCEDURE REASON: Derangement of medial meniscus of right knee * * * * Physician Interpretation * * * * EXAMINATION: MRI RIGHT KNEE WITHOUT CONTRAST CLINICAL HISTORY: Derangement of medial meniscus of right knee TECHNIQUE: Routine non-contrast MRI of the knee MQ: MRK_2B COMPARISON: None RESULT: MENISCI: Medial Meniscus: Incomplete radial tear in the body with degenerative signal in the posterior horn Lateral Meniscus: Intact. LIGAMENTS: ACL: Intact PCL: Intact MCL: Intact LCL Complex: Intact CARTILAGE: Medial Femoral Condyle: Small area(s) of low grade (less than 50% thickness) partial thickness cartilage loss and or fissuring Medial Tibial Plateau: Small areas(s) of predominantly low grade (less than 50% thickness) cartilage loss and or fissuring with smaller area(s) of full thickness cartilage loss and or fissuring with reactive subchondral edema signal along the medial margin. Lateral Femoral Condyle: Small area(s) of low grade (less than 50% thickness) partial thickness cartilage loss and or fissuring Lateral Tibial Plateau: Normal Patella: Small area(s) of low grade (less than 50% thickness) partial thickness cartilage loss and or fissuring Trochlea: Single full-thickness fissure TENDONS: The distal quadriceps and patellar tendons are intact. The popliteus tendon is intact. BONES AND MARROW: No evidence of fracture or bone marrow replacing process. MUSCLES: Muscle bulk and signal intensity are normal. JOINT FLUID AND SYNOVIUM: Moderate joint effusion. Mild synovitis. No Woods's cyst. OTHER: Mild to moderate subcutaneous edema is present in the anterior aspect of the knee. Localizer images: No additional findings. IMPRESSION: Incomplete radial tear in the body segment of the medial meniscus. Early chondral wear of the right knee as described. Claims Clerk: MONSERRAT Transcribe Date/Time: Oct 06 2024 9:22A Dictated by : JESSICA FAUSTIN MD This examination was interpreted and the report reviewed and electronically signed by: JESSICA FAUSTIN MD on Oct 06 2024 9:27AM EST [id number] Normal [facility] CNOVon 09-18-2024 CNOV Office Visit (FRWS ) DILANCONNER ([id number]) 1965 M Date Time Provider Department 09/18/24 2:00 PM JESSE TORRES V [facility] During your visit today, we recorded the following information about you: Belkis Hale MA 09/18/2024 3:10 PM Signed AMB ROOMING INTAKE FLOWSHEET DATA Pain Pain Level: 8 Pain Location: Knee-Right Description: Sharp, Aching Duration Amount of Time: (ongoing) Frequency: Continuous Intervention/Comfort measure: Other: See comment, Medication (compression) Jesse Torres V, DO 09/18/2024 3:10 PM Signed Subjective Conner is a 59-year-old male presenting with acute onset of right knee pain and inability to fully extend the knee following a minor incident at a choir concert last night. Conner reports that he was at a choir concert last night when he attempted to demonstrate a running motion. During this demonstration, he suddenly experienced a sharp pain in his right knee, which nearly caused him to fall. He describes the pain as acute and severe, stating, I don't know what the hell I did. I said, something's not right. Since the incident, he has been unable to fully extend his right knee without experiencing significant pain and tightness. He notes that the pain is localized to the medial joint line and is tender to palpation. He also reports a sensation of something being lodged and pushing up when attempting to straighten his leg. Prior to this incident, Conner had been experiencing swelling in the same knee, which had recently improved. He had been wearing a knee sleeve at work, where he primarily walks around, but had not been wearing it as consistently due to the warmer weather. After the incident, he applied ice and elevated the knee, which provided some relief. He also attempted a compression technique he found on YouTube, which he reports worked great. Conner denies any swelling in the knee following the incident and is able to bend the knee without pain. He is concerned about the sudden change in his ability to extend the knee and the localized tenderness. He has been using crutches to assist with mobility and plans to continue using them for safety. Musculoskeletal: (+) knee pain, (+) difficulty extending knee, (-) swelling Objective There were no vitals taken for this visit. General: No acute distress. MSK/Ext: Tenderness along the medial joint line of the knee; no effusion; limited extension with pain; stiffness noted with extension. 1. Derangement of medial meniscus of right knee (M23.303) Acute onset of pain and inability to fully extend the right knee following a sudden movement. Examination reveals tenderness along the medial joint line with no effusion. Suspected complex medial meniscus tear causing mechanical obstruction in joint motion. - Administered lidocaine injection to the medial aspect of the knee to achieve local anesthesia. - Performed manual manipulation to attempt to free the suspected meniscal tear. - Advised patient to minimize activity over the weekend to allow inflammation to subside; use crutches as needed. - Ordered MRI of the right knee to confirm the presence of a meniscal tear and assess the extent of the injury. - Patient may resume work if pain is manageable. Attestation Recording using Branch software for draft documentation of the visit was discussed with the patient/authorized public relations representative; all questions welcomed and answered. Patient/authorized public relations representative agreed to proceed Referring Provider: SELF [200] Allergies As of Date: 09/18/2024 Noted Allergy Reaction PENICILLINS 07/31/2024 10 - Anaphylaxis Date Reviewed: 09/18/2024 Reviewed by: Belkis Hale MA - Fully Assessed Reason for Visit: Right Knee Pain [1209] Primary Visit Diagnosis:Derangement of medial meniscus of right knee [M23.303] Order(s):MRI KNEE WO IVCON RIGHT [[id number]] Order #: [id number] FUTURE Prescriptions as of 09/18/2024 - amLODIPine (NORVASC) 5 mg tablet Take 1 tablet by mouth once daily. - lancets (ONETOUCH DELICA PLUS LANCET) 30 gauge Use as directed to test blood sugar twice daily Problem List As Of Date: 09/18/2024 (None) Encounter Status:Closed by JESSE TORRES V on 09/18/24 [facility] CNPNon 09-18-2024 CNPN Telephone (ORTHWS) CONNER KONG ([id number]) 1965 M Date Time Provider Department 09/18/24 JESSE TORRES V ORTHWS During your visit today, we recorded the following information about you: Belkis Hale MA 09/18/2024 8:16 AM Signed Patients stopped in the office. States the patient tweaked his right knee last night and today is not able to bear any weight on the leg. She is requesting an appointment today for evaluation because the patient had to call off work. Allergies As of Date: 09/18/2024 Noted Allergy Reaction PENICILLINS 07/31/2024 10 - Anaphylaxis Date Reviewed: 09/09/2024 Reviewed by: Magui Anderson MA - Fully Assessed Reason for Visit: Patient Update [1234] Prescriptions as of 09/18/2024 - amLODIPine (NORVASC) 5 mg tablet Take 1 tablet by mouth once daily. - lancets (ONETOUCH DELICA PLUS LANCET) 30 gauge Use as directed to test blood sugar twice daily Problem List As Of Date: 09/18/2024 (None) Encounter Status:Closed by BELKIS HALE on 09/18/24 [facility] CNOVon 09-09-2024 CNOV Office Visit (FRFHWS ) CONNER KONG ([id number]) 1965 M Date Time Provider Department 09/09/24 2:30 PM JESSE TORRES V [facility] During your visit today, we recorded the following information about you: Magui Anderson MA 09/09/2024 2:55 PM Signed Patient presents with: Right knee pain and right index finger laceration AMB ROOMING INTAKE FLOWSHEET DATA Pain Pain Level: 6 Pain Location: Knee-Right Description: Aching Duration Amount of Time: 3 Duration Units: Weeks Frequency: Intermittent (Occurs with weight bearing) Intervention/Comfort measure: Medication Jesse Torres V, DO 09/09/2024 2:55 PM Signed Subjective Conner is a 59-year-old male presenting with a laceration to the right finger and right knee pain. Conner sustained a laceration to his right finger 1 week ago while clearing grass from a running lawnmower. He reports that the blade nicked his finger, causing significant pain and bleeding. He was evaluated at [facility] the following day, where an x-ray was performed, and he was prescribed doxycycline. He has been applying triple antibiotic ointment and a bandage daily, removing the bandage after work to allow the wound to air dry. He works near [employer] and keeps the wound covered during work hours. Additionally, Conner reports right knee pain and swelling following an incident 3 weeks ago when he tripped over a chair leg in the dark, causing his knee to buckle backward. He experienced a pinch sensation at the time but did not seek medical attention. The following day, he felt a similar sensation while walking down a hill. He has been babying the knee since then. Last weekend, he spent significant time on his knees while installing a bathroom floor, which exacerbated the pain and swelling. He notes that the knee is noticeably swollen compared to the left knee and experiences increased pain when transitioning from sitting to standing. He denies any previous significant injuries or surgeries to the knee, though he recalls incidental injuries such as hitting it on a trailer hitch. He is on his feet all day at work and takes many steps daily. Musculoskeletal: (+) right knee pain, (+) right knee swelling Skin: (+) right finger pain Objective There were no vitals taken for this visit. General: No acute distress. MSK/Ext: Laceration near nail bed of finger; right knee with visible swelling compared to left knee; tenderness with patellar compression; mild pain with varus and valgus stress; significant medial knee pain; no laxity in posterior cruciate ligament, anterior cruciate ligament, or collateral ligaments. Imaging: (Last Saturday) - Finger X-ray: No evidence of fracture or bone involvement. Tuft appears normal, no sign of open fracture. - Knee X-ray: Soft tissue swelling within the joint, well-maintained joint spaces, minimal bone spurring, no significant arthritic changes. 1. Effusion of right knee joint (M25.461) Sprain of unspecified site of right knee, initial encounter (S83.91XA) Right knee effusion with medial joint line pain and limited range of motion due to swelling. No evidence of ligamentous laxity on examination. X-rays show soft tissue swelling but well-maintained joint spaces and no significant arthritic changes. Differential diagnosis includes meniscal injury. - Administered intra-articular corticosteroid injection to reduce inflammation and swelling. - Provided a compression knee sleeve to be worn during activities. - Monitor for improvement in symptoms; follow-up if no significant improvement. 2. Laceration without foreign body of right index finger with damage to nail, initial encounter (S61.310A) Laceration near the nail bed of the right index finger from a lawnmower blade. X-rays show no evidence of fracture. Currently being treated with antibiotic ointment and protective dressing. - Continue daily application of triple antibiotic ointment and protective dressing during work hours. - Allow the wound to air dry after work to promote healing. - Monitor for signs of infection; follow-up if any concerns arise. Large Joint Arthro/Inj: R knee joint 09/09/2024 2:53 PM The procedure site was prepped in the usual sterile fashion. Site: R knee joint Medications: 4 mg dexAMETHasone sodium phosphate 4 mg/mL; 40 mg triamcinolone acetonide 40 mg/mL Anesthetics: 4 mL lidocaine (PF) 10 mg/mL (1 %); 4 mL BUPivacaine (PF) 0.5 % (5 mg/mL) Outcome: Tolerated well, no immediate complications Post-injection instructions were reviewed with the patient and the patient voiced understanding of these instructions. Informed Consent Consent Obtained: Verbal [place] Protocol SIGN IN TIME OUT Attestation Recording using Branch software for draft documentation of the visit was discussed with the patient/authorized public relations representative; a (more content not included)... Normal [facility] Large Joint Arthro/Inj: R kn ee jointon 09-09-2024 Jesse Torres V, DO 09/09/2024 2:55 PM Large Joint Arthro/Inj: R knee joint 09/09/2024 2:53 PM The procedure site was prepped in the usual sterile fashion. Site: R knee joint Medications: 4 mg dexAMETHasone sodium phosphate 4 mg/mL; 40 mg triamcinolone acetonide 40 mg/mL Anesthetics: 4 mL lidocaine (PF) 10 mg/mL (1 %); 4 mL BUPivacaine (PF) 0.5 % (5 mg/mL) Outcome: Tolerated well, no immediate complications Post-injection instructions were reviewed with the patient and the patient voiced understanding of these instructions. Informed Consent Consent Obtained: Verbal [place] Protocol SIGN IN TIME OUT [facility] CNOVon 09-07-2024 CNOV Office Visit (UCWSTR ) CONNER KONG ([id number]) 1965 M Date Time Provider Department 09/07/24 4:00 PM HARINI MARIANO [facility] During your visit today, we recorded the following information about you: Temperature Pulse Respiration Blood pressure 98.2 degrees 82/minute 16/minute 144/88 Weight 107.6 kg Harini Mariano APRN.CNP 09/07/2024 5:21 PM Signed Subjective The history is provided by the patient. No cotton ginner was used. [facility] Conner Kong is a 59 year old male who presents today for CC of right knee pain for 3 weeks. Left Knee Pain: - Onset: Approximately 2.5 weeks ago. - Initial Incident: Hyperextension of the left knee when a chair hit the knee while walking on the deck. - Second Incident: Similar hyperextension while walking down a hill the following day. - Pain initially mild, but has persisted and worsened over time. - Notable swelling in the left knee. - Pain is absent when sitting but intensifies upon standing and walking. - Describes a sensation of the knee snapping back and feeling unstable. - Aggravated by squatting and putting on socks. - Using Tylenol, Biofreeze, and ice for pain management. - Unable to take ibuprofen due to antihypertensive medication. 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 - Recent activities, including remodeling a bathroom floor and walking at [employer], have increased discomfort. BP 144/88 Pulse 82 Temp 36.8 ?C (98.2 ?F) (Tympanic) Resp 16 Wt 107.6 kg (237 lb 3.4 oz) SpO2 96% Social History Tobacco Use Smoking status: Never Smokeless tobacco: Never PAST MEDICAL HISTORY Diagnosis Date Diabetes mellitus (HCC) Essential hypertension I have confirmed and edited as necessary, the [facility] Musculoskeletal: (+) knee pain, (+) knee swelling, (+) knee instability, (+) difficulty ambulating Objective Physical Exam Vitals and nursing note reviewed. Cardiovascular: Pulses: Popliteal pulses are 2+ on the right side and 2+ on the left side. Dorsalis pedis pulses are 2+ on the right side and 2+ on the left side. Posterior tibial pulses are 2+ on the right side and 2+ on the left side. Pulmonary: Effort: Pulmonary effort is normal. Musculoskeletal: Right knee: Swelling present. No deformity, effusion, erythema, ecchymosis, lacerations, bony tenderness or crepitus. Decreased range of motion. Tenderness present over the lateral joint line. LCL laxity present. No MCL laxity. Abnormal meniscus. Normal alignment and normal patellar mobility. Left knee: Normal. Skin: General: Skin is warm and dry. Neurological: Mental Status: He is alert and oriented to person, place, and time. Sensory: Sensation is intact. Deep Tendon Reflexes: Reflexes are normal and symmetric. Psychiatric: Mood and Affect: Affect normal. Differential Diagnoses - knee strain is more likely for the following reason(s): suggested by HANDP - patellar fracture is less likely for the following reason(s): no evidence on imaging ASSESSMENT/PLAN: 1. Acute pain of right knee - ICD9: 719.46, ICD10: M25.561 Tylenol, compression as needed Rest, elevate Follow up with Ortho for further evaluation and treatment. - XR KNEE GENERAL 4V AP BOTH/PA BOTH/LAT/MERC RIGHT IMPRESSION: Small right suprapatellar joint effusion. No radiographic evidence of acute osseous abnormality. Suggestion of small bilateral fibular neck exostoses. FINDINGS: Small suprapatellar joint effusion. No acute fracture or dislocation identified. Joint spaces preserved. Suggestion of small exostosis arising from the medial aspect of the fibular neck. Left knee: No acute fracture or dislocation identified. Joint spaces preserved. Suggestion of small exostosis arising from the medial aspect of the fibular neck Interpreted by : PÉREZ RYAN MD - CONSULT TO ORTHOPAEDICS Diagnosis and treatment plan were discussed and questions were answered to the patient's satisfaction. Pt acknowledged understanding of concepts and follow up plan. Specific signs and symptoms that would indicate the need for higher level of care were discussed in detail warranting prompt ER evaluation. Harini Mariano APRN.SENIOR TELECOMMUNICATIONS TECHNICIAN Allergies As of Date: 09/07/2024 Noted Allergy Reaction PENICILLINS 07/31/2024 10 - Anaphylaxis Date Reviewed: 09/07/2024 Reviewed by: Harini Mariano APRN.SENIOR TELECOMMUNICATIONS TECHNICIAN - Fully Assessed Reason for Visit: Right Knee Pain [1209] Primary Visit Diagnosis:Acute pain of right knee [M25.561] Order(s):XR KNEE GENERAL 4V AP BOTH/PA BOTH/LAT/MERC RIGHT [[id number]] Order #: [id number] FUTURE CONSULT TO ORTHOPAEDICS [9026] Order #: [id number]: 1 FUTURE Prescriptions as of 09/07/2024 - losartan (COZAAR) 100 mg tablet Take 1 tablet by mouth daily - metFORMIN ER (GLUCOPHAGE XR) 500 mg 24 hr tablet Take 1(one) tablet by mouth two t (more content not included)... Normal [facility] XR KNEE 4V AP/PA BOTH+LAT/ME R RTon 09-07-2024 XR KNEE 4V AP/PA BOTH+LAT/ODALYS RT * * *Final Report* * * DATE OF EXAM: Sep 07 2024 4:38PM WOX 5203 - XR KNEE 4V AP/PA BOTH+LAT/ODALYS RT / PROCEDURE REASON: Acute pain of right knee * * * * Physician Interpretation * * * * TITLE: XR KNEE 4V AP/PA BOTH+LAT/ODALYS RT CLINICAL INDICATION: Pain TECHNIQUE: AP/PA/merchant radiographs of both knees and lateral radiographs of the right knee COMPARISON: None FINDINGS: Small suprapatellar joint effusion. No acute fracture or dislocation identified. Joint spaces preserved. Suggestion of small exostosis arising from the medial aspect of the fibular neck. Left knee: No acute fracture or dislocation identified. Joint spaces preserved. Suggestion of small exostosis arising from the medial aspect of the fibular neck IMPRESSION: Small right suprapatellar joint effusion. No radiographic evidence of acute osseous abnormality. Suggestion of small bilateral fibular neck exostoses. Claims Clerk: [employer] Transcribe Date/Time: Sep 07 2024 4:44P Dictated by : PÉREZ RYAN MD This examination was interpreted and the report reviewed and electronically signed by: PÉREZ RYAN MD on Sep 07 2024 4:45PM EST [id number] Normal [facility] XR Knee - right 4 Viewson IMPRESSION: Small right suprapatellar joint effusion. No radiographic evidence of acute osseous abnormality. Suggestion of small bilateral fibular neck exostoses. Claims Clerk: [employer] Transcribe Date/Time: Sep 07 2024 4:44P Dictated by : PÉREZ RYAN MD This examination was interpreted and the report reviewed and electronically signed by: PÉREZ RYAN MD on Sep 07 2024 4:45PM EST DIVISION OF RADIOLOGY * * *Final Report* * * DATE OF EXAM: Sep 07 2024 4:38PM WOX 5203 - XR KNEE 4V AP/PA BOTH+LAT/ODALYS RT / PROCEDURE REASON: Acute pain of right knee * * * * Physician Interpretation * * * * TITLE: XR KNEE 4V AP/PA BOTH+LAT/ODALYS RT CLINICAL INDICATION: Pain TECHNIQUE: AP/PA/merchant radiographs of both knees and lateral radiographs of the right knee COMPARISON: None FINDINGS: Small suprapatellar joint effusion. No acute fracture or dislocation identified. Joint spaces preserved. Suggestion of small exostosis arising from the medial aspect of the fibular neck. Left knee: No acute fracture or dislocation identified. Joint spaces preserved. Suggestion of small exostosis arising from the medial aspect of the fibular neck DIVISION OF RADIOLOGY Provider, Yo Gonsalez - 09/07/2024 * * *Final Report* * * DATE OF EXAM: Sep 07 2024 4:38PM WOX 5203 - XR KNEE 4V AP/PA BOTH+LAT/ODALYS RT / PROCEDURE REASON: Acute pain of right knee * * * * Physician Interpretation * * * * TITLE: XR KNEE 4V AP/PA BOTH+LAT/ODALYS RT CLINICAL INDICATION: Pain TECHNIQUE: AP/PA/merchant radiographs of both knees and lateral radiographs of the right knee COMPARISON: None FINDINGS: Small suprapatellar joint effusion. No acute fracture or dislocation identified. Joint spaces preserved. Suggestion of small exostosis arising from the medial aspect of the fibular neck. Left knee: No acute fracture or dislocation identified. Joint spaces preserved. Suggestion of small exostosis arising from the medial aspect of the fibular neck IMPRESSION IMPRESSION: Small right suprapatellar joint effusion. No radiographic evidence of acute osseous abnormality. Suggestion of small bilateral fibular neck exostoses. Claims Clerk: [employer] Transcribe Date/Time: Sep 07 2024 4:44P Dictated by : PÉREZ RYAN MD This examination was interpreted and the report reviewed and electronically signed by: PÉREZ RYAN MD on Sep 07 2024 4:45PM EST [facility] Radiology Study observation (narrative) [facility] XR Knee - right 4 ViewsOrder ed By: Yo Provider on 09-07-2024 [facility] CNOVon 09-02-2024 CNOV Office Visit (UCWSTR ) CONNER KONG ([id number]) 1965 M Date Time Provider Department 09/02/24 11:15 AM JOHN ANDERSON WSTR During your visit today, we recorded the following information about you: Temperature Pulse Respiration Blood pressure 97.4 degrees 80/minute 16/minute 132/82 Weight 107 kg John Anderson, COLLEEN.SENIOR TELECOMMUNICATIONS TECHNICIAN 09/02/2024 12:46 PM Signed [facility] Subjective Conner Kong is a 59 year old male. Patient presents with: Laceration: Laceration right index finger-happened last night Patient came in with complaints of laceration to right index finger. Patient says he was getting a chunk of grass unstuck from the lower and the mower blade clipped him. Patient denies any loss of feeling or range of motion. The history is provided by the patient. No cotton ginner was used. Laceration Review of Systems Constitutional: Negative. HENT: Negative. Objective BP 132/82 Pulse 80 Temp 36.3 ?C (97.4 ?F) (Tympanic) Resp 16 Wt 107 kg (235 lb 14.3 oz) SpO2 96% Physical Exam Constitutional: Appearance: Normal appearance. Pulmonary: Effort: Pulmonary effort is normal. Musculoskeletal: Hands: Comments: Patient does have what appears to be avulsion laceration in the area marked above. Extension and flexion are within normal limits. Circulation is intact sensation is intact no active bleeding at this time. Neurological: Mental Status: He is alert. PAST MEDICAL HISTORY Diagnosis Date Diabetes mellitus (HCC) Essential hypertension No past surgical history on file. ALLERGIES Penicillins MEDICATIONS losartan (COZAAR) 100 mg tablet Take 1 tablet by mouth daily metFORMIN ER (GLUCOPHAGE XR) 500 mg 24 hr tablet Take 1 tablet by mouth two times a day. amLODIPine (NORVASC) 5 mg tablet TAKE 1 TABLET BY MOUTH EVERY DAY losartan (COZAAR) 100 mg tablet Take 1 tablet by mouth daily (Patient not taking: Reported on 07/31/2024) metFORMIN ER (GLUCOPHAGE XR) 500 mg 24 hr tablet Take 1(one) tablet by mouth two times a day. (Patient not taking: Reported on 07/31/2024) amLODIPine (NORVASC) 5 mg tablet Take1 (one) tablet by mouth twice daily (Patient not taking: Reported on 07/31/2024) metFORMIN ER (GLUCOPHAGE XR) 500 mg 24 hr tablet Take 1 (one) tablet by mouth twice daily (Patient not taking: Reported on 07/31/2024) amLODIPine (NORVASC) 5 mg tablet Take 1 tablet by mouth twice daily (Patient not taking: Reported on 07/31/2024) lancets ([employer] DELICA PLUS LANCET) 30 gauge Use as directed to test blood sugar twice daily amLODIPine (NORVASC) 5 mg tablet Take 1 tablet by mouth two times a day. (Patient not taking: Reported on 07/31/2024) losartan (COZAAR) 100 mg tablet TAKE 1 TABLET BY MOUTH EVERY DAY (Patient not taking: Reported on 07/31/2024) FAMILY HISTORY Problem Relation Age of Onset Glaucoma Mother Social History Tobacco Use Smoking status: Never Smokeless tobacco: Never {ASSESSMENT/PLAN: 1. Open wound - ICD9: 879.8, ICD10: T14.8XXA - XR DIGIT GENERAL 3V FRONTAL/LAT/OBL RIGHT - TDAP VACCINE, AGE 7+ YR (ADACEL, BOOSTRIX) - DOXYCYCLINE MONOHYDRATE 100 MG TABLET Ortho consul for follow up. Patient educated about red flag symptoms. Patient will follow-up with signs and symptoms seem to be getting worse not better. Ortho consult was placed for further eval. John Anderson APRN.SENIOR TELECOMMUNICATIONS TECHNICIAN MDM Procedures Referring Provider: SELF [200] Allergies As of Date: 09/02/2024 Noted Allergy Reaction PENICILLINS 07/31/2024 10 - Anaphylaxis Date Reviewed: 09/02/2024 Reviewed by: Velvet Dias LPN - Fully Assessed Reason for Visit: Laceration [1747] Cmt: Laceration right index finger-happened last night Primary Visit Diagnosis:Open wound [T14.8XXA] Order(s):XR DIGIT GENERAL 3V FRONTAL/LAT/OBL RIGHT [[id number]] Order #: [id number] FUTURE TDAP VACCINE, AGE 7+ YR (ADACEL, BOOSTRIX) [58789EDC] Order #: [id number] doxycycline monohydrate 100 mg tabletTake 1 tablet by mouth two times a day for 5 days.Disp: 10 tabletRfl: 0 CONSULT PANEL TO ORTHOPAEDICS [515993] Order #: [id number]: 1 FUTURE Prescriptions as of 09/02/2024 - doxycycline monohydrate 100 mg tablet Take 1 tablet by mouth two times a day for 5 days. - losartan (COZAAR) 100 mg tablet Take 1 tablet by mouth daily - metFORMIN ER (GLUCOPHAGE XR) 500 mg 24 hr tablet Take 1(one) tablet by mouth two times a day. - amLODIPine (NORVASC) 5 mg tablet Take1 (one) tablet by mouth twice daily - losartan (COZAAR) 100 mg tablet Take 1 tablet by mouth daily - metFORMIN ER (GLUCOPHAGE XR) 500 mg 24 hr tablet Take 1 (one) tablet by mouth twice daily - amLODIPine (NORVASC) 5 mg tablet Take 1 tablet by mouth twice daily - lancets ([employer] DELICA PLUS LANCET) 30 gauge Use as directed to test blood sugar twice daily - amLODIPine (NORVASC) 5 mg tablet Take 1 tablet by mouth two t (more content not included)... Normal [facility] XR DIGIT 3V FRONTAL/LAT/OBL RTon 09-02-2024 XR DIGIT 3V FRONTAL/LAT/OBL RT * * *Final Report* * * DATE OF EXAM: Sep 02 2024 11:43AM WOX 5319 - XR DIGIT 3V FRONTAL/LAT/OBL RT / PROCEDURE REASON: Open wound * * * * Physician Interpretation * * * * EXAM TITLE: XR DIGIT 3V FRONTAL/LAT/OBL RT EXAM DATE/TIME: 09/02/2024 11:43 AM COMPARISON: None. CLINICAL INDICATION/HISTORY: Open wound. TECHNIQUE: PA, lateral and oblique views of the second digit of the right hand are presented. FINDINGS: No acute fractures or subluxations are noted. Degenerative changes involving the DIP joint. There is significant soft tissue swelling/irregularity in distal portion of the digit. IMPRESSION: Soft tissue swelling in the distal second digit. No acute fracture seen. Claims Clerk: [employer] Transcribe Date/Time: Sep 02 2024 12:23P Dictated by : AUDI WALLER MD This examination was interpreted and the report reviewed and electronically signed by: AUDI WALLER MD on Sep 02 2024 12:33PM EST [id number] Normal [facility] XR Finger - right AP and Lat eral and obliqueon 09-02-2024 IMPRESSION: Soft tis amanda swelling in the distal second digit. No acute fracture seen. Claims Clerk: [employer] Transcribe Date/Time: Sep 02 2024 12:23P Dictated by : AUDI WALLER MD This examination was interpreted and the report reviewed and electronically signed by: AUDI WALLER MD on Sep 02 2024 12:33PM [facility] DIVISION OF RADIOLOGY * * *Final Report* * * DATE OF EXAM: Sep 02 2024 11:43AM WOX 5319 - XR DIGIT 3V FRONTAL/LAT/OBL RT / PROCEDURE REASON: Open wound * * * * Physician Interpretation * * * * EXAM TITLE: XR DIGIT 3V FRONTAL/LAT/OBL RT EXAM DATE/TIME: 09/02/2024 11:43 AM COMPARISON: None. CLINICAL INDICATION/HISTORY: Open wound. TECHNIQUE: PA, lateral and oblique views of the second digit of the right hand are presented. FINDINGS: No acute fractures or subluxations are noted. Degenerative changes involving the DIP joint. There is significant soft tissue swelling/irregularity in distal portion of the digit. DIVISION OF RADIOLOGY Provider, [facility] - 09/02/2024 * * *Final Report* * * DATE OF EXAM: Sep 02 2024 11:43AM WOX 5319 - XR DIGIT 3V FRONTAL/LAT/OBL RT / PROCEDURE REASON: Open wound * * * * Physician Interpretation * * * * EXAM TITLE: XR DIGIT 3V FRONTAL/LAT/OBL RT EXAM DATE/TIME: 09/02/2024 11:43 AM COMPARISON: None. CLINICAL INDICATION/HISTORY: Open wound. TECHNIQUE: PA, lateral and oblique views of the second digit of the right hand are presented. FINDINGS: No acute fractures or subluxations are noted. Degenerative changes involving the DIP joint. There is significant soft tissue swelling/irregularity in distal portion of the digit. IMPRESSION IMPRESSION: Soft tissue swelling in the distal second digit. No acute fracture seen. Claims Clerk: [employer] Transcribe Date/Time: Sep 02 2024 12:23P Dictated by : AUDI WALLER MD This examination was interpreted and the report reviewed and electronically signed by: AUDI WALLER MD on Sep 02 2024 12:33PM EST [facility] Radiology Study observation (narrative) [facility] XR Finger - right AP and Lat eral and obliqueOrdered By: Ccf Provider on 09-02-2024 [facility] Urgent Care Visit Reporton 0 07-03-2019 Urgent Care Visit Report [facility] [address] [place] [address] [address] [place] [id number] OFFICE VISIT Date of Service: 07/03/19 MR#: [id number] Acct: [id number] Name: CONNER KONG Rep #: [id number] : 1965 Provider: Mik BILLINGSLEY Age/Sex: 54/M Location: [email or web address] Status: Signed Intake Vital Signs07/03/19 Height 5 ft 9 in 07/03/19 Weight: 231 lb 07/03/19 BP 132/78 H Intake Visit Reasons: BODYACHES/SORE THROAT/SINUS Allergies Penicillins Allergy (Verified 07/03/19 17:52) Unknown [facility] Medical History (Updated 07/03/19 @ 18:04 by ANALILIA Armijo) Arthritis (Acute) Hypertension (Chronic) HPI HPI Details: CONNER KONG, is a 54 M who presents to the office today for sore throat, fatigue and cough as well as body aches starting yesterday. Patient describes his cough as dry, nonproductive and denies hemoptysis, shortness of breath or difficulty breathing. He has had no known fever, chills or sweats. No nausea, vomiting, diarrhea. He states that his daughter did have influenza B last week and wants tested. No other associated symptoms or alleviating/aggravating factors. ROS Const Constitutional: Positive for other (6 system ROS completed with pertinent findings in the HPI otherwise normal.) Exam Const General: cooperative, no acute distress HENMT Head: normocephalic, atraumatic Ears: hearing grossly normal bilaterally Nose: external nose normal Mouth: oral mucosae normal Throat: posterior oropharynx abnormal erythema; Negative for no exudates Resp Effort AND Inspection: normal respiratory effort Auscultation: Bilateral: Clear to Auscultation Cardio Palpation: normal PMI Rate: regular rate Rhythm: regular rhythm Heart Sounds: S1 normal, S2 normal Neuro General: alert, oriented x3, CN's II-XI intact bilaterally Psych Appearance: grossly normal Mental Status: mental status grossly normal Mood: congruent mood Results POC FLU A AND B Office Flu A AND B Pos FLU B AND Neg FLU A Last Edit by Matt Dahl on 07/03/19 18:02 Assessment AND Plan Problems 1. Influenza B J10.1 Status Acute Plan Patient tested positive for influenza B in the office today. Tamiflu as prescribed today. Encouraged to get plenty of rest, drink lots of clear liquids, and use Tylenol or Ibuprofen (unless contraindicated) for fever and comfort. Patient also educated on other symptomatic management techniques. To be seen in 7-10 days if no improvement; sooner if worsening of symptoms. Patient advised of potential red flags and when appropriate to report to the ED. Patient verbalized understanding and agreement with all the above. Orders Orders: Medications New: Coding Level of Care Code Off vis,new,level 3 Diagnoses Influenza B J10.1 07/03/19 1810 Date Mik Veliz Signature: Date (if applicable) CC: Normal [facility] Vital Signs Date Time Vital Sign Value Performing Clinician Analisa reece 12-20-2024 14:46-0400 Body mass index (BMI) [Ratio] 34.28 kg/m2 Jenna Leonard APRN.ANNA Work Phone: [facility] 12-20-2024 14:46-0400 Body temperature 97.2 [degF] Jenna Swank BRANCH MAKER.SENIOR TELECOMMUNICATIONS TECHNICIAN Work Phone: [facility] 12-20-2024 14:46-0400 Body weight 102.6 kg Jenna Leonard BRANCH MAKER.SENIOR TELECOMMUNICATIONS TECHNICIAN Work Phone: [facility] 12-20-2024 14:46-0400 Diastolic blood pressure 86 mm[Hg] Jenna Leonard BRANCH MAKER.SENIOR TELECOMMUNICATIONS TECHNICIAN Work Phone: [facility] 12-20-2024 14:46-0400 Heart rate 80 /min Jenna Swank BRANCH MAKER.SENIOR TELECOMMUNICATIONS TECHNICIAN Work Phone: [facility] 12-20-2024 14:46-0400 Respiratory rate 20 /min Jenna Swank BRANCH MAKER.SENIOR TELECOMMUNICATIONS TECHNICIAN Work Phone: [facility] 12-20-2024 14:46-0400 SaO2% (BldA) [Mass fraction] 97 % Jenna Swank BRANCH MAKER.SENIOR TELECOMMUNICATIONS TECHNICIAN Work Phone: [facility] 12-20-2024 14:46-0400 Systolic blood pressure 148 mm[Hg] Ejnna Swank BRANCH MAKER.SENIOR TELECOMMUNICATIONS TECHNICIAN Work Phone: [facility] 11-04-2024 15:23-0400 Body height 173 cm Dami Good DO Work Phone: [facility] 11-04-2024 15:23-0400 Body mass index (BMI) [Ratio] 34.71 kg/m2 Dami Good DO Work Phone: [facility] 11-04-2024 15:23-0400 Body temperature 97 [degF] Dami Good DO Work Phone: [facility] 11-04-2024 15:23-0400 Body weight 103.87 kg Dami Good DO Work Phone: [facility] 11-04-2024 15:23-0400 Diastolic blood pressure 90 mm[Hg] Dami Good DO Work Phone: [facility] 11-04-2024 15:23-0400 Heart rate 80 /min Dami Good DO Work Phone: [facility] 11-04-2024 15:23-0400 Respiratory rate 12 /min Dami Good DO Work Phone: [facility] 11-04-2024 15:23-0400 Systolic blood pressure 144 mm[Hg] Dami Good DO Work Phone: [facility] 09-07-2024 16:00-0400 Diastolic blood pressure 88 mm[Hg] Harini Rodriguesk BRANCH MAKER.SENIOR TELECOMMUNICATIONS TECHNICIAN Work Phone: [facility] 09-07-2024 16:00-0400 Systolic blood pressure 144 mm[Hg] Harini Montserrat BRANCH MAKER.SENIOR TELECOMMUNICATIONS TECHNICIAN Work Phone: [facility] 09-07-2024 15:57-0400 Body temperature 98.2 [degF] Harini Montserrat BRANCH MAKER.SENIOR TELECOMMUNICATIONS TECHNICIAN Work Phone: [facility] 09-07-2024 15:57-0400 Body weight 107.6 kg Harini Mariano BRANCH MAKER.SENIOR TELECOMMUNICATIONS TECHNICIAN Work Phone: [facility] 09-07-2024 15:57-0400 Heart rate 82 /min Harini Montserrat BRANCH MAKER.SENIOR TELECOMMUNICATIONS TECHNICIAN Work Phone: [facility] 09-07-2024 15:57-0400 Respiratory rate 16 /min Harini Mariano BRANCH MAKER.SENIOR TELECOMMUNICATIONS TECHNICIAN Work Phone: [facility] 09-07-2024 15:57-0400 SaO2% (BldA) [Mass fraction] 96 % Harini Mariano BRANCH MAKER.SENIOR TELECOMMUNICATIONS TECHNICIAN Work Phone: [facility] 09-02-2024 11:16-0400 Body temperature 97.39 [degF] John Anderson BRANCH MAKER.SENIOR TELECOMMUNICATIONS TECHNICIAN Work Phone: [facility] 09-02-2024 11:16-0400 Body weight 107 kg John Anderson BRANCH MAKER.SENIOR TELECOMMUNICATIONS TECHNICIAN Work Phone: [facility] 09-02-2024 11:16-0400 Diastolic blood pressure 82 mm[Hg] oJhn Anderson BRANCH MAKER.SENIOR TELECOMMUNICATIONS TECHNICIAN Work Phone: [facility] 09-02-2024 11:16-0400 Heart rate 80 /min John Anderson BRANCH MAKER.SENIOR TELECOMMUNICATIONS TECHNICIAN Work Phone: [facility] 09-02-2024 11:16-0400 Respiratory rate 16 /min John Anderson BRANCH MAKER.SENIOR TELECOMMUNICATIONS TECHNICIAN Work Phone: [facility] 09-02-2024 11:16-0400 SaO2% (BldA) [Mass fraction] 96 % John Anderson APRN.SENIOR TELECOMMUNICATIONS TECHNICIAN Work Phone: [facility] 09-02-2024 11:16-0400 Systolic blood pressure 132 mm[Hg] John Anderson APRN.SENIOR TELECOMMUNICATIONS TECHNICIAN Work Phone: [facility] Encounters Encounter Date Encounter Type Care Provider Facility Start: 12-20-2024 End: 12-20-2024 Subsequent hospital visit by physician Xr [facility] Work Phone: Radiology 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: Upper limb injury, r ight, initial encounter [S49.91XA] Start: 12-20-2024 End: 12-20-2024 Patient encounter procedure Jenna Rosasoliva MCCANNSENIOR TELECOMMUNICATIONS TECHNICIAN Work Phone: [facility] [place] 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: Upper limb injury, r ight, initial encounter (Primary Dx); Contusion of right elbow, initial encounter Start: 12-20-2024 End: 12-20-2024 ambulatory DAMI GOOD Facility:[facility] Start: 12-09-2024 End: 12-09-2024 ambulatory Maria Elena Lucero RN [facility] Start: 12-09-2024 End: 12-09-2024 Coordination of care plan Maria Elena Lucero RN [facility] 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: CARE COORDINATION Start: 11-25-2024 End: 11-25-2024 Refill Dami Valdezon DO Work Phone: [facility] 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: Refill Request Start: 11-11-2024 End: 11-11-2024 ambulatory Maria Elena Lucero RN [facility] 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: TRANSFUSION AIDE - O THER Start: 11-10-2024 End: 11-10-2024 ambulatory Dami Carrrison DO Work Phone: [facility] [place] 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: Amlodipone Start: 11-10-2024 End: 11-11-2024 Telephone encounter Dami Carrrison DO Work Phone: [facility] [place] 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: Medication Problem Start: 11-09-2024 End: 11-09-2024 Follow-up encounter Mara White APRN.SENIOR TELECOMMUNICATIONS TECHNICIAN Work Phone: [facility] 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: Results Start: 11-07-2024 End: 11-07-2024 ambulatory DAMI GOOD Facility:[facility] Start: 11-04-2024 End: 11-04-2024 Patient encounter procedure Dami Good DO Work Phone: [facility] [place] 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: Well adult exam (Nova agustin Dx); Derangement of medial meniscus of right knee; Type 2 diabetes mellitus without complication, without long-term current use of insulin (HCC); Hypertension, essential; Dyslipidemia; Screening for prostate cancer; Nut allergy Start: 11-04-2024 End: 11-04-2024 Patient encounter status Dami Good DO Work Phone: [facility] Start: 11-04-2024 End: 11-04-2024 ambulatory DAMI GOOD Facility:[facility] Start: 10-08-2024 End: 10-08-2024 ambulatory JASMIN ENMANUEL Facility:[facility] Start: 10-08-2024 End: 10-08-2024 Patient encounter procedure Jasmin Falcon Work Phone: Podiatry 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: Diabetic polyneuropa thy associated with type 2 diabetes mellitus (HCC) (Primary Dx); Hallux rigidus of left foot; Hallux rigidus of right foot Start: 10-06-2024 End: 10-08-2024 Follow-up encounter Jesse Torres DO Work Phone: Orthopaedics Start: 10-06-2024 ambulatory JESSE TORRES Facility:[facility] Start: 10-06-2024 End: 10-06-2024 Subsequent hospital visit by physician Mri Radio [facility] (I-Stat/1.5t) Work Phone: Radiology 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: Derangement of media l meniscus of right knee [M23.303] Start: 09-18-2024 End: 09-18-2024 ambulatory JESSE TORRES Facility:[facility] Start: 09-18-2024 End: 09-18-2024 Patient encounter procedure Jesse Torres DO Work Phone: [facility] [place] 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: Derangement of media l meniscus of right knee (Primary Dx) Start: 09-18-2024 End: 09-18-2024 Telephone encounter Jesse Torres DO Work Phone: Orthopaedics 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: Patient Update Start: 09-14-2024 End: 09-14-2024 Refill Dami Good MD Work Phone: [facility] 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: Refill Request Start: 09-09-2024 End: 09-09-2024 Patient encounter procedure Jesse Torres DO Work Phone: [facility] [place] 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: Effusion of right kn ee joint (Primary Dx); Laceration without foreign body of right index finger with damage to nail, initial encounter; Sprain of unspecified site of right knee, initial encounter Start: 09-09-2024 End: 09-09-2024 ambulatory JESSE DOMINIQUE Facility:[facility] Start: 09-07-2024 End: 09-07-2024 Subsequent hospital visit by physician Xr [facility] [place] Work Phone: Radiology 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: Acute pain of right knee [M25.561] Start: 09-07-2024 End: 09-07-2024 Patient encounter procedure Harini Mariano APRN.CNP Work Phone: [facility] 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: Acute pain of right knee (Primary Dx) Start: 09-07-2024 End: 09-07-2024 ambulatory HARINI MARIANO Facility:[facility] Start: 09-07-2024 End: 11-07-2024 Follow-up encounter Harini Mariano APRN.SENIOR TELECOMMUNICATIONS TECHNICIAN Work Phone: [facility] Start: 09-02-2024 End: 09-02-2024 Patient encounter procedure John Anderson APRN.SENIOR TELECOMMUNICATIONS TECHNICIAN Work Phone: [facility] 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: Open wound (Primary Dx) Start: 09-02-2024 End: 09-02-2024 ambulatory SELF Facility:[facility] Start: 07-31-2024 End: 07-31-2024 ambulatory CLARK KUHN Facility:[facility] Start: 07-31-2024 End: 07-31-2024 Patient encounter procedure Clark Kuhn OD Work Phone: Ophthalmology 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: Type 2 diabetes sukh itus without retinopathy (HCC) (Primary Dx); Myopia, bilateral; Regular astigmatism of both eyes; Presbyopia Start: 07-17-2024 End: 07-17-2024 ambulatory Maria Elena Lucero RN [facility] Start: 07-17-2024 End: 07-17-2024 Coordination of care plan Maria Elena Lucero RN [facility] 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: CARE COORDINATION Start: 07-16-2024 End: 07-16-2024 ambulatory Soraya Guadalupe MA [facility] 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: TRANSFUSION AIDE - O THER Start: 09-27-2023 End: 09-27-2023 [facility] Start: 06-11-2023 End: 06-11-2023 ambulatory [facility] Procedures Date Procedure Procedure Detail Performing Clinician Start: 12-20-2024 Radex elbow complete minimum 3 views Jenna Leonard BRANCH MAKER.SENIOR TELECOMMUNICATIONS TECHNICIAN Work Phone: Start: 10-06-2024 Mri any jt lower ext rem w/o contrast matrl Jesse Torres DO Work Phone: Start: 09-09-2024 Arthrocentesis aspir &/inj major jt/bursa w/o us Jesse Torres DO Work Phone: Start: 09-07-2024 Radiologic exam knee complete 4/more views Harini Mariano BRANCH MAKER.SENIOR TELECOMMUNICATIONS TECHNICIAN Work Phone: Start: 05-28-2023 Lipid 1996 panel - S noah or Plasma Soraya Guadalupe MA Plan of Treatment Date Care Activity Detail Author Start: 09-02-2034 Urine microalbumin profile DTaP,Tdap,Td Vaccine (2 - Td or Tdap) [facility] Start: 11-07-2029 Prostate specific antigen measurement Prostate Cancer Screening Discussion [facility] Start: 05-28-2028 Lipid panel Lipid Screening [facility] Start: 05-28-2028 Prostate specific antigen measurement Prostate Cancer Screening Discussion [facility] Start: 05-28-2026 Diabetes Screening Diabetes Screenin g [facility] Start: 11-07-2025 Hepatitis B screening Urine Albumin:Creatinine Ratio [facility] Start: 11-07-2025 Hepatitis B surface antibody level LDL Cholesterol [facility] Start: 11-04-2025 Annual PCP Team Bluing Oven Tender sylvia Disease Visit Annual PCP Team Chronic Disease Visit [facility] Start: 10-11-2025 End: 10-11-2025 Patient encounter procedure 10/11/2025 1:00 PM EDT Office Visit Podiatry [address] [place] [address] Jasmin Falcon [address] [place] [address] 1 year follow up Podiatry 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: 1 year follow up Start: 08-02-2025 End: 08-02-2025 Patient encounter procedure 08/02/2025 1:45 PM EDT Office Visit [facility] [address] [place] [address] Clark Kuhn, OD [address] [place] [address] 1 YR F/U for diabetic eye exam / CL EVAL Ophthalmology 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: 1 YR F/U for diabeti c eye exam / CL EVAL Start: 07-31-2025 Glaucoma screening Dilated Retinal E xam [facility] Start: 05-09-2025 Hemoglobin A1c measurement HbA1C [facility] Start: 01-11-2025 Influenza vaccination C [facility] Start: 12-23-2024 End: 12-23-2024 Patient encounter procedure 12/23/2024 3:00 PM EDT Office Visit [facility] [address] [place] [address] Jesse Torres V, DO [address] [place] [address] Upper limb injury, right, initial encounter [S49.91XA] [facility] 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: Upper limb injury, r ight, initial encounter [S49.91XA] Start: 11-04-2024 End: 11-04-2024 Patient encounter procedure 11/04/2024 3:20 PM EDT [facility] [address] [facility] [place] [id number] Dami Good DO [address] [place] [address] NEW PATIENT [facility] 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: NEW PATIENT Start: 11-04-2024 End: 02-03-2025 Cashew nut IgE Ab [Units/volume] in Serum ALGN CASHEW NUT IGE Lab Routine Nut allergy Expected: 11/04/2024, Expires: 02/03/2025 [facility] 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: Expected: 11/04/2024 , Expires: 02/03/2025 Start: 11-04-2024 End: 02-03-2025 CBC W Auto Differential panel - Blood COMPLETE BLOOD COUNT AND DIFFERENTIAL Lab Routine Type 2 diabetes mellitus without complication, without long-term current use of insulin (HCC) Expected: 11/04/2024, Expires: 02/03/2025 [facility] 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: Expected: 11/04/2024 , Expires: 02/03/2025 Start: 11-04-2024 End: 02-03-2025 Comprehensive metabolic 2000 panel - Serum or Plasma COMPREHENSIVE METABOLIC PANEL Lab Routine Type 2 diabetes mellitus without complication, without long-term current use of insulin (HCC) Expected: 11/04/2024, Expires: 02/03/2025 [facility] 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: Expected: 11/04/2024 , Expires: 02/03/2025 Start: 11-04-2024 End: 02-03-2025 Hemoglobin A1c in Blood HEMOGLOBIN A1C Lab Routine Type 2 diabetes mellitus without complication, without long-term current use of insulin (HCC) Expected: 11/04/2024, Expires: 02/03/2025 [facility] Work Phone: 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: Expected: 11/04/2024 , Expires: 02/03/2025 Start: 11-04-2024 End: 02-03-2025 Lipid 1996 panel - Serum or Plasma LIPID PANEL, FASTING Lab Routine Dyslipidemia Expected: 11/04/2024, Expires: 02/03/2025 [facility] 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: Expected: 11/04/2024 , Expires: 02/03/2025 Start: 11-04-2024 End: 02-03-2025 Microalbumin/Creatinine [Mass Ratio] in Urine ALBUMIN/CREATININE RATIO, URINE Lab Routine Type 2 diabetes mellitus without complication, without long-term current use of insulin (HCC) Expected: 11/04/2024, Expires: 02/03/2025 [facility] 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: Expected: 11/04/2024 , Expires: 02/03/2025 Start: 11-04-2024 End: 02-03-2025 Peanut IgE Ab [Units/volume] in Serum ALGN PEANUT IGE Lab Routine Nut allergy Expected: 11/04/2024, Expires: 02/03/2025 [facility] 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: Expected: 11/04/2024 , Expires: 02/03/2025 Start: 11-04-2024 End: 02-03-2025 Pistachio IgE Ab [Units/volume] in Serum ALGN PISTACHIO IGE Lab Routine Nut allergy Expected: 11/04/2024, Expires: 02/03/2025 [facility] 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: Expected: 11/04/2024 , Expires: 02/03/2025 Start: 11-04-2024 End: 02-03-2025 PSA/PROSTATE SPECIFIC ANTIGEN SCREENING PSA/PROSTATE SPECIFIC ANTIGEN SCREENING Lab Routine Screening for prostate cancer Expected: 11/04/2024, Expires: 02/03/2025 [facility] 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: Expected: 11/04/2024 , Expires: 02/03/2025 Start: 11-04-2024 End: 02-03-2025 Thyrotropin [Units/volume] in Serum or Plasma THYROID STIMULATING HORMONE Lab Routine Hypertension, essential Expected: 11/04/2024, Expires: 02/03/2025 [facility] 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: Expected: 11/04/2024 , Expires: 02/03/2025 Start: 11-04-2024 End: 02-03-2025 Canalou IgE Ab [Units/volume] in Serum ALGN WALNUT IGE Lab Routine Nut allergy Expected: 11/04/2024, Expires: 02/03/2025 [facility] 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: Expected: 11/04/2024 , Expires: 02/03/2025 Start: 10-08-2024 End: 10-08-2024 Patient encounter procedure 10/08/2024 1:30 PM EDT Office Visit Podiatry [address] [place] [address] Jasmin Falcon [address] [place] [address] consult diabetic foot care Podiatry 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: consult diabetic lokesh t care Start: 07-31-2024 End: 07-31-2024 Patient encounter procedure 07/31/2024 3:15 PM EDT Office Visit [facility] [address] [place] [address] Clark Kuhn, OD [address] [place] [address] Routine Ophthalmology 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: Routine Start: 05-28-2024 Hepatitis B surface antibody level LDL Cholesterol [facility] Start: 01-12-2024 Covid-19 Vaccine ( season) Covid-19 Vaccine ( season) [facility] Start: 01-12-2024 Influenza vaccination Influenza Vacc ine (#1) [facility] Start: 08-27-2023 Hemoglobin A1c measurement HbA1C [facility] Start: 2017 Pneumococcal Vaccine : 50+ (1 of 1 - PCV) Pneumococcal Vaccine: 50+ (1 of 1 - PCV) [facility] Start: 2017 Shingrix Vaccine (1 of 2) Shingrix Vaccine (1 of 2) [facility] Start: 2012 Screening for malign ant neoplasm of colon [facility] Start: 1986 Hepatitis B Vaccine (1 of 3 - 19+ 3-dose series) Hepatitis B Vaccine (1 of 3 - 19+ 3-dose series) [facility] Start: 1986 Pneumococcal Vaccine : 50+ (1 of 2 - PCV) Pneumococcal Vaccine: 50+ (1 of 2 - PCV) [facility] Start: 1986 Urine microalbumin profile DTaP,Tdap,Td Vaccine (1 - Tdap) [facility] Start: 1985 Annual PCP Team Bluing Oven Tender sylvia Disease Visit Annual PCP Team Chronic Disease Visit [facility] Start: 1985 Anxiety Screening Anxiety Screening [facility] Start: 1985 Depression Screening Depression Scre ening [facility] Start: 1985 Hepatitis C screening Hepatitis C Sc reening [facility] Start: 1985 HIV screening HIV Screening [facility] Start: 1977 Diabetic foot examination Diabetic Foot Exam [facility] Start: 1977 Hepatitis B screening Urine Albumin:Creatinine Ratio [facility] End: 10-18-2025 MR Knee - right WO contrast MRI KNEE WO IVCON RIGHT Radiology Routine Derangement of medial meniscus of right knee 1 Occurrences starting 09/18/2024 until 10/18/2025 [facility] Work Phone: 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: 1 Occurrences starti ng 09/18/2024 until 10/18/2025 Immunizations Immunization Date Immunization Notes Care Provider Kayleigh carrillo 09-02-2024 tetanus toxoid, redu braeden diphtheria toxoid, and acellular pertussis vaccine, adsorbed John Anderson APRN.CNP Work Phone: [facility] Payers Date Payer Category Payer Private Health Insurance P AET NA [id number] 2023 Unknown [id number] 2021 Unknown [id number] 1967 Unknown [id number] 1965 Unknown [id number] Social History Date Type Detail Facility Start: 07-06-[facility] Start: 07-06-2015 Tobacco use and exposure Smoke less tobacco non-user [facility] Start: 07-06-2015 End: 09-07-2024 Alcoholic beverage intake Not Asked [facility] Start: 1965 Sex assigned at Not on file [facility] Start: 07-31-2024 End: 09-09-2024 Gender identity Not on file [facility] Start: 07-31-2024 End: 09-09-2024 History of Social function [facility] Start: 07-06-2015 National Score (1-10 0), lower number is lower risk 72 [facility] Start: 10-08-2024 End: 11-04-2024 Alcoholic beverage intake Current drinker of alcohol (finding) [facility] Start: 10-08-2024 Alcohol Comment socially [facility] Has the [employer] or [employer] threatened to shut off services in your home in past 12Mo No [facility] Are you now , , , , never or living with a partner? [facility] How often to you hav e a drink containing alcohol? 2-4 times a month [facility] How many standard dr inks containing alcohol do you have on a typical day? 1 or 2 [facility] How often do you hav e 6 or more drinks on 1 occasion? Less than monthly [facility] Do you feel stress - tense, restless, nervous, or anxious, or unable to sleep at night because your mind is troubled all the time - these days [OSQ] Not at all [facility] (I/We) worried joey er (my/our) food would run out before (I/we) got money to buy more. Never true [facility] Medical Equipment Procedure Code Equipment Code Equipment Origin al Text Equipment Identifier Dates Use as directed to test blood sugar twice daily [id number] Start: 06-05-2023 Functional Status Date Assessment Result Facility 10-31-2024 Total score [AUDIT-C] 3 11/01/19 9:24 AM EDT User, Zot [facility] 10-31-2024 How often to you hav e a drink containing alcohol? 2-4 times a month 10/31/2024 9:24 AM EDT User, Mychart 2-4 times a month [facility] 10-31-[address] inks containing alcohol do you have on a typical day? 1 or 2 10/31/2024 9:24 AM EDT User, Mychart 1 or 2 [facility] 10-31-2024 How often do you hav e 6 or more drinks on 1 occasion? Less than monthly 10/31/2024 9:24 AM EDT User, Gabyvirgiliot Less than monthly [facility] Clinical Notes 07-17-2024 to 12-20-2024 Jenna Leonard APRN.CNP - 12/20/2024 3:40 PM EDTDaEli abbasi Tech - 12/20/2024 3:10 PM EDTEHP Outreach Note - Maria Elena Lucero RN - 12/09/2024 12:39 PM EDTPatient Instructions Note Date & Type Note Facility 12-20-2024 Note HNO ID: [id number] Author: JENNA LEONARD APRN.ANNA Service: ? Author Type: Nurse Practitioner Type: Progress Notes Filed: 12/20/2024 15:44 Note Text: [facility] is a 59 year old male. Patient presents with: Trauma: Right elbow shooting up arm Trauma Right Elbow Pain: - Acute onset of right elbow pain following a fall in the garage a few hours ago. - Slipped while turning towards the refrigerator, landing on the buttocks and elbow. - Denies numbness or tingling. - Pain localized to the elbow, with tenderness noted. - Denies extending hand or wrist during the fall. Review of Systems Musculoskeletal: (+) elbow tenderness Neurological: (-) numbness, (-) tingling Objective BP 148/86 Pulse 80 Temp 36.2 ?C (97.2 ?F) Resp 20 Wt 102.6 kg (226 lb 3.1 oz) SpO2 97% BMI 34.28 kg/m? PAST MEDICAL HISTORY[1] No past surgical history on file. ALLERGIES Penicillins and Lisinopril MEDICATIONS amLODIPine (NORVASC) 5 mg tablet Take 1 tablet by mouth two times a day. losartan (COZAAR) 100 mg tablet Take 1 tablet by mouth once daily. metFORMIN (GLUCOPHAGE) 500 mg tablet Take 1 tablet by mouth two times a day with meals. lancets ([employer] DELICA PLUS LANCET) 30 gauge Use as directed to test blood sugar twice daily FAMILY HISTORY[2] SOCIAL HISTORY[3] Physical Exam Cardiovascular: Rate and Rhythm: Normal rate. Pulses: Normal pulses. Pulmonary: Effort: Pulmonary effort is normal. Musculoskeletal: Right shoulder: Normal. Right elbow: Effusion present. Normal range of motion. Tenderness present in lateral epicondyle. Right forearm: Normal. Right wrist: Normal. Arms: { 1. Upper limb injury, right, initial encounter (S49.91XA) 2. Contusion of right elbow, initial encounter (S50.01XA) - Acute right elbow injury after fall onto concrete surface; pain localized to bursa region with full extension and rotation preserved. - Differential includes bursitis versus avulsion fracture. - Pending radiology read, patient declines posterior splint, patient put in sling. and Recording using Branch software for draft documentation of the visit was discussed with the patient/authorized public relations representative; all questions welcomed and answered. Patient/authorized public relations representative agreed to proceed MDM patient well-appearing nontoxic in no acute distress 59-year-old male that presents with a right contusion of his elbow. Avulsion fracture versus old previous injury. Patient put in a sling declines a long-arm splint. No concerns of neurovascular deficits, tendon rupture, or nerve impingement. Discussed Tylenol ibuprofen sling and to follow-up with Dr. Torres on Saturday at 3 PM did discuss he can access his MyChart for radiology read did discuss an overview x-ray in the presence of the patient based on my initial read. Any sudden increase in pain, or worsening symptoms return for reevaluation. Patient verbalized understanding and agreement this plan. [1] Past Medical History: No date: Diabetes mellitus (HCC) No date: Essential hypertension [2] Review of patient's family history indicates: Problem: Glaucoma Relation: Mother Age of Onset: (Not Specified) Problem: Colon Cancer Relation: Father Age of Onset: (Not Specified) Problem: Diabetes Relation: Maternal Grandmother Age of Onset: (Not Specified) [3] Social History Tobacco Use Smoking status: Never Smokeless tobacco: Never Vaping Use Vaping status: Never Used Substance Use Topics Alcohol use: Yes Comment: socially Drug use: Never [facility] 12-20-2024 History of Present illness Narrative Images from the original note were not included. [facility] Subjective Conner Kong is a 59 year old male. Patient presents with: Trauma: Right elbow shooting up arm Trauma Right Elbow Pain: - Acute onset of right elbow pain following a fall in the garage a few hours ago. - Slipped while turning towards the refrigerator, landing on the buttocks and elbow. - Denies numbness or tingling. - Pain localized to the elbow, with tenderness noted. - Denies extending hand or wrist during the fall. Review of Systems Musculoskeletal: (+) elbow tenderness Neurological: (-) numbness, (-) tingling Objective BP 148/86 Pulse 80 Temp 36.2 C (97.2 F) Resp 20 Wt 102.6 kg (226 lb 3.1 oz) SpO2 97% BMI 34.28 kg/m PAST MEDICAL HISTORY[1] No past surgical history on file. ALLERGIES Penicillins and Lisinopril MEDICATIONS amLODIPine (NORVASC) 5 mg tablet Take 1 tablet by mouth two times a day. losartan (COZAAR) 100 mg tablet Take 1 tablet by mouth once daily. metFORMIN (GLUCOPHAGE) 500 mg tablet Take 1 tablet by mouth two times a day with meals. lancets (TapZenTOUCH DELICA PLUS LANCET) 30 gauge Use as directed to test blood sugar twice daily FAMILY HISTORY[2] SOCIAL HISTORY[3] Physical Exam Cardiovascular: Rate and Rhythm: Normal rate. Pulses: Normal pulses. Pulmonary: Effort: Pulmonary effort is normal. Musculoskeletal: Right shoulder: Normal. Right elbow: Effusion present. Normal range of motion. Tenderness present in lateral epicondyle. Right forearm: Normal. Right wrist: Normal. Arms: { 1. Upper limb injury, right, initial encounter (S49.91XA) 2. Contusion of right elbow, initial encounter (S50.01XA) - Acute right elbow injury after fall onto concrete surface; pain localized to bursa region with full extension and rotation preserved. - Differential includes bursitis versus avulsion fracture. - Pending radiology read, patient declines posterior splint, patient put in sling. and Recording using Branch software for draft documentation of the visit was discussed with the patient/authorized public relations representative; all questions welcomed and answered. Patient/authorized public relations representative agreed to proceed MDM patient well-appearing nontoxic in no acute distress 59-year-old male that presents with a right contusion of his elbow. Avulsion fracture versus old previous injury. Patient put in a sling declines a long-arm splint. No concerns of neurovascular deficits, tendon rupture, or nerve impingement. Discussed Tylenol ibuprofen sling and to follow-up with Dr. Torres on Saturday at 3 PM did discuss he can access his [employer] for radiology read did discuss an overview x-ray in the presence of the patient based on my initial read. Any sudden increase in pain, or worsening symptoms return for reevaluation. Patient verbalized understanding and agreement this plan. [1] Past Medical History: No date: Diabetes mellitus (HCC) No date: Essential hypertension [2] Review of patient's family history indicates: Problem: Glaucoma Relation: Mother Age of Onset: (Not Specified) Problem: Colon Cancer Relation: Father Age of Onset: (Not Specified) Problem: Diabetes Relation: Maternal Grandmother Age of Onset: (Not Specified) [3] Social History Tobacco Use Smoking status: Never Smokeless tobacco: Never Vaping Use Vaping status: Never Used Substance Use Topics Alcohol use: Yes Comment: socially Drug use: Never documented in this encounter [facility] 12-20-2024 History of Present illness Narrative Radiology Service Progress Note PATIENT NAME: Conner Kong DATE OF SERVICE: December 20, 2024 TIME: 3:05 PM PATIENT IDENTITY VERIFICATION COMPLETED USING TWO (2) IDENTIFIERS: Name and Date of confirmed by patient verbally. FALL SCREENING: Has the patient had 2 falls in the last year or 1 fall with injury or currently using an Ambulatory Assistive Device (Walker, Cane, Wheelchair, Crutches, etc.)? No PATIENT GENDER DATA: Assigned male at PATIENT RELEVANT IMPLANT DATA REVIEWED: Yes PATIENT PRESENTS WITH AN IMPLANTABLE OR ATTACHED MANAGER PLAN: No RADIOLOGY DEPARTMENT: General X-ray: Exam(s) Completed: Upper Extremity X-Ray(s): Elbow, right PERIPHERAL IV DATA: Not applicable SIGNED BY: Mehdi Freeman December 20, 2024 3:05 PM documented in this encounter [facility] 12-20-2024 Note HNO ID: [id number] Author: ELI TORRES Tech Service: ? Author Type: Shopper'S Aide Type: Progress Notes Filed: 12/20/2024 15:13 Note Text: Radiology Service Progress Note PATIENT NAME: Conner Kong DATE OF SERVICE: December 20, 2024 TIME: 3:05 PM PATIENT IDENTITY VERIFICATION COMPLETED USING TWO (2) IDENTIFIERS: Name and Date of confirmed by patient verbally. FALL SCREENING: Has the patient had 2 falls in the last year or 1 fall with injury or currently using an Ambulatory Assistive Device (Walker, Cane, Wheelchair, Crutches, etc.)? No PATIENT GENDER DATA: Assigned male at PATIENT RELEVANT IMPLANT DATA REVIEWED: Yes PATIENT PRESENTS WITH AN IMPLANTABLE OR ATTACHED MANAGER PLAN: No RADIOLOGY DEPARTMENT: General X-ray: Exam(s) Completed: Upper Extremity X-Ray(s): Elbow, right PERIPHERAL IV DATA: Not applicable SIGNED BY: Mehdi Freeman December 20, 2024 3:05 PM [facility] 12-09-2024 Note Formatting of this n ote might be different from the original. Losartan Amlodipine Metformin Y [facility] 12-09-2024 Miscellaneous Notes Losartan Amlodipine Metformin Y documented in this encounter [facility] 11-25-2024 Telephone encounter Note Patient has requested attached RX be re-filled at [facility] instead of previously used pharmacy. Due to market staffing shortages, [id number]-[id number] transfers can cause delays due to longer hold times. Please send new RX directly to our pharmacy per patient request. Once approved, please discontinue old orders in Epic to mitigate any duplicate therapy. Thank you! [facility] [phone] (phone) [phone] (fax) [facility] 11-25-2024 Miscellaneous Notes Patient has requested attached RX be re-filled at [facility] instead of previously used pharmacy. Due to market staffing shortages, [id number]-[id number] transfers can cause delays due to longer hold times. Please send new RX directly to our pharmacy per patient request. Once approved, please discontinue old orders in Epic to mitigate any duplicate therapy. Thank you! [facility] [phone] (phone) [phone] (fax) documented in this encounter [facility] 11-11-2024 Telephone encounter Note PDMP website checked and validated. All prescriptions have been APPROPRIATELY filled. No suspicious activity was identified. 11/11/2024 by Mara White APRN.CNP The following approved medication requests have been transmitted electronically. Requested Prescriptions Signed Prescriptions Disp Refills amLODIPine (NORVASC) 5 mg tablet 180 tablet 0 Sig: Take 1 tablet by mouth two times a day. Authorizing Provider: MARA WHITE APRN.CNP [facility] 11-11-2024 Miscellaneous Notes PDMP website checked and validated. All prescriptions have been APPROPRIATELY filled. No suspicious activity was identified. 11/11/2024 by Mara White APRN.CNP The following approved medication requests have been transmitted electronically. Requested Prescriptions Signed Prescriptions Disp Refills amLODIPine (NORVASC) 5 mg tablet 180 tablet 0 Sig: Take 1 tablet by mouth two times a day. Authorizing Provider: MARA WHITE APRN.CNP Spouse (Shae) calls to report that [facility] will not allow patient to refill the amlodipine as it is too soon to refill based on prescription sent is for once daily. Order sent in is for once daily and patient takes amlodipine 5 mg twice daily as previously ordered by Kaylyn BILLINGSLEY. Pended request. Patient has two pills left. Germania White RN documented in this encounter [facility] 11-10-2024 Telephone encounter Note Spouse (Shae) calls to report that [facility] will not allow patient to refill the amlodipine as it is too soon to refill based on prescription sent is for once daily. Order sent in is for once daily and patient takes amlodipine 5 mg twice daily as previously ordered by Kaylyn BILLINGSLEY. Pended request. Patient has two pills left. Germania White RN [facility] 11-10-2024 Telephone encounter Note Spoke to and advised rx was refilled 11/04 needs to call [facility] and speak to staff for refill Amina Martino MA [facility] 11-10-2024 Miscellaneous Notes Spoke to and advised rx was refilled 11/04 needs to call [facility] and speak to staff for refill Amina Martino MA documented in this encounter [facility] 11-09-2024 Telephone encounter Note Pt notified of results via [employer]. Tisha Esteves Ma [facility] 11-09-2024 Miscellaneous Notes Pt notified of results via [employer]. Tisha Esteves Ma ----- Message from Mara White APRN.SENIOR TELECOMMUNICATIONS TECHNICIAN sent at 11/09/2024 8:59 AM EDT ----- Please call patient and let him know that lab work results look great. hgA1c is much improved from last year and at goal -- continue on current regimen. PSA and thyroid are normal. Nut allergy testing was all negative. Lipid panel was also improved with LDL still slightly elevated. Focus on low-cholesterol diet and exercise to improve. Take care, Mara White APRN.SENIOR TELECOMMUNICATIONS TECHNICIAN documented in this encounter [facility] 11-09-2024 Telephone encounter Note ----- Message from Mara White APRN.SENIOR TELECOMMUNICATIONS TECHNICIAN sent at 11/09/2024 8:59 AM EDT ----- Please call patient and let him know that lab work results look great. hgA1c is much improved from last year and at goal -- continue on current regimen. PSA and thyroid are normal. Nut allergy testing was all negative. Lipid panel was also improved with LDL still slightly elevated. Focus on low-cholesterol diet and exercise to improve. Mara Huggins APRN.SENIOR TELECOMMUNICATIONS TECHNICIAN [facility] 11-04-2024 Note HNO ID: [id number] Author: DAMI GOOD, DO Service: ? Author Type: Physician Type: Progress Notes Filed: 11/04/2024 18:24 Note Text: Patient presents with: Establish Care HPI: Conner Kong is a 59 year old male who presents to the office today for review of health conditions. Concerns today: Admits that he is working on improvements in his diet, working on weight loss, wanting to get off his metformin in the future. Trying to be more physically active Does struggle with chronic knee pain, diagnosed with medial meniscus tear, hasn't seen orthopedic surgeon but saw Dr. Torres for sports medicine. Not interested in surgical correction at this time, maybe in winter months. In the past, had throat swelling/angioedema SE, he thinks to a nut reaction, potentially pistachios, never has had lab testing for a food allergy for this concern. Also had SE with a previous BLOOD PRESSURE medication, thinks this was potentially lisinopril- will check previous medications. Mr. Kong has past history of diabetes. Since our last visit he denies excessive thirst or increased frequency of urination, chest pain or dyspnea , new or unusual visual symptoms, and low sugar/hypoglycemic reactions. Depression- no. Follows a diabetic diet most of the time. He is compliant with medication(s) and is tolerating med(s) without any side effects. He reports checking his glucose on a once a day schedule with sugars in the <150 range. Patient's last HgA1C was Hemoglobin A1C (%) Date Value 05/28/2023 8.4 04/11/2022 7.1 ) Last Ophthalmology exam was within the past 12 months Mr. oKng reports history of hyperlipidemia. Current therapy includes diet and exercise. Denies side effects of muscle weakness or achiness. His most recent lipid panels are reviewed. Cholesterol, Total (mg/dL) Date Value 05/28/2023 214 HDL Cholesterol (mg/dL) Date Value 05/28/2023 56 LDL Cholesterol, Calculated (mg/dL) Date Value 05/28/2023 136 Triglyceride (mg/dL) Date Value 05/28/2023 110 Mr. Kong indicates a history of hypertension and states that he is feeling well and denies any symptoms referable to elevated blood pressure. Specifically denies headache, chest pain, palpitations, dyspnea, and peripheral edema. Patient denies any side effects of his medication(s) and is compliant with their regimen. Last 3 Encounter BP Readings: Date: BP: 11/04/2024 144/90 09/07/2024 144/88 09/02/2024 132/82 He watches his diet for sodium, low fat and low cholesterol some of the time. He does not check BP's generally. Conner gets sporadic irregular exercise. PAST MEDICAL HISTORY Diagnosis Date Diabetes mellitus (HCC) Essential hypertension History reviewed. No pertinent surgical history. Social History Tobacco Use Smoking status: Never Smokeless tobacco: Never Vaping Use Vaping status: Never Used Substance Use Topics Alcohol use: Yes Comment: socially Drug use: Never FAMILY HISTORY Problem Relation Age of Onset Glaucoma Mother Colon Cancer Father Diabetes Maternal Grandmother Allergies: ALLERGIES Allergen Reactions Penicillins Anaphylaxis Current Meds: amLODIPine (NORVASC) 5 mg tablet Take 1 tablet by mouth once daily. losartan (COZAAR) 100 mg tablet Take 1 tablet by mouth once daily. metFORMIN (GLUCOPHAGE) 500 mg tablet Take 1 tablet by mouth two times a day with meals. lancets ([employer] DELICA PLUS LANCET) 30 gauge Use as directed to test blood sugar twice daily Review of Systems: The remainder of the review of systems is negative. PE: 11/04/24 1523 BP: 144/90 Pulse: 80 Resp: 12 Temp: 36.1 ?C (97 ?F) TempSrc: Left Tympanic Weight: 103.9 kg (229 lb) Height: 173 cm (5' 8.11) Gen: AANDO, NAD, non-toxic appearing, Pleasant, cooperative HEENT: NT/AC, PERRLA, EOMs intact b/l, nares clear and patent b/l, pharynx without erythema, exudate or lesions. Uvula midline. EACs without erythema or debris. TMs pearly jewell with intact landmarks b/l. Neck: supple, No cervical LAD, no thyromegaly, no carotid bruits CV: RRR, normal S1 and S2, no murmurs, no gallops, no rubs, Pulses 2+ and symmetric in UE and LE b/l Lungs: normal respiratory effort, CTA b/l, no wheezing or rhonchi or rales Abd: soft, NT, ND, +BS, no hepatosplenomegaly MS: FROM all 4 extremities Neuro: CN II-XII intact b/l, strength 5/5 b/l UE and LE, DTRs 2/4 UE and LE, sensation intact. Skin: warm, dry, intact, No rashes or lesions on exposed skin. Foot exam: Monofilament wnl on right and left feet. No edema, normal pulses ASSESSMENT/PLAN: 1. Well adult exam - ICD9: V70.0, ICD10: Z00.00 (primary diagnosis) - Counseled on healthy diet and regular exercise - Discussed need for and benefit of weight loss. BMI 34.71 kg/(m2) 2. Derangement of medial meniscus of right knee - ICD9: 717.3, ICD10: M23.303 F/u with Orthopedics. 3. Type 2 diabetes mellitus without complic (more content not included)... [facility] 11-04-2024 History of Present illness Narrative Patient presents with: [facility] HPI: Conner Kong is a 59 year old male who presents to the office today for review of health conditions. Concerns today: Admits that he is working on improvements in his diet, working on weight loss, wanting to get off his metformin in the future. Trying to be more physically active Does struggle with chronic knee pain, diagnosed with medial meniscus tear, hasn't seen orthopedic surgeon but saw Dr. Torres for sports medicine. Not interested in surgical correction at this time, maybe in winter months. In the past, had throat swelling/angioedema SE, he thinks to a nut reaction, potentially pistachios, never has had lab testing for a food allergy for this concern. Also had SE with a previous BLOOD PRESSURE medication, thinks this was potentially lisinopril- will check previous medications. Mr. Kong has past history of diabetes. Since our last visit he denies excessive thirst or increased frequency of urination, chest pain or dyspnea , new or unusual visual symptoms, and low sugar/hypoglycemic reactions. Depression- no. Follows a diabetic diet most of the time. He is compliant with medication(s) and is tolerating med(s) without any side effects. He reports checking his glucose on a once a day schedule with sugars in the <150 range. Patient's last HgA1C was Hemoglobin A1C (%) Date Value 05/28/2023 8.4 04/11/2022 7.1 ) Last Ophthalmology exam was within the past 12 months Mr. Kong reports history of hyperlipidemia. Current therapy includes diet and exercise. Denies side effects of muscle weakness or achiness. His most recent lipid panels are reviewed. Cholesterol, Total (mg/dL) Date Value 05/28/2023 214 HDL Cholesterol (mg/dL) Date Value 05/28/2023 56 LDL Cholesterol, Calculated (mg/dL) Date Value 05/28/2023 136 Triglyceride (mg/dL) Date Value 05/28/2023 110 Mr. Kong indicates a history of hypertension and states that he is feeling well and denies any symptoms referable to elevated blood pressure. Specifically denies headache, chest pain, palpitations, dyspnea, and peripheral edema. Patient denies any side effects of his medication(s) and is compliant with their regimen. Last 3 Encounter BP Readings: Date: BP: 11/04/2024 144/90 09/07/2024 144/88 09/02/2024 132/82 He watches his diet for sodium, low fat and low cholesterol some of the time. He does not check BP's generally. Conner gets sporadic irregular exercise. PAST MEDICAL HISTORY Diagnosis Date Diabetes mellitus (HCC) Essential hypertension History reviewed. No pertinent surgical history. Social History Tobacco Use Smoking status: Never Smokeless tobacco: Never Vaping Use Vaping status: Never Used Substance Use Topics Alcohol use: Yes Comment: socially Drug use: Never FAMILY HISTORY Problem Relation Age of Onset Glaucoma Mother Colon Cancer Father Diabetes Maternal Grandmother Allergies: ALLERGIES Allergen Reactions Penicillins Anaphylaxis Current Meds: amLODIPine (NORVASC) 5 mg tablet Take 1 tablet by mouth once daily. losartan (COZAAR) 100 mg tablet Take 1 tablet by mouth once daily. metFORMIN (GLUCOPHAGE) 500 mg tablet Take 1 tablet by mouth two times a day with meals. lancets ([employer]CH DELICA PLUS LANCET) 30 gauge Use as directed to test blood sugar twice daily Review of Systems: The remainder of the review of systems is negative. PE: 11/04/24 1523 BP: 144/90 Pulse: 80 Resp: 12 Temp: 36.1 C (97 F) TempSrc: Left Tympanic Weight: 103.9 kg (229 lb) Height: 173 cm (5' 8.11) Gen: A&O, NAD, non-toxic appearing, Pleasant, cooperative HEENT: NT/AC, PERRLA, EOMs intact b/l, nares clear and patent b/l, pharynx without erythema, exudate or lesions. Uvula midline. EACs without erythema or debris. TMs pearly jewell with intact landmarks b/l. Neck: supple, No cervical LAD, no thyromegaly, no carotid bruits CV: RRR, normal S1 and S2, no murmurs, no gallops, no rubs, Pulses 2+ and symmetric in UE and LE b/l Lungs: normal respiratory effort, CTA b/l, no wheezing or rhonchi or rales Abd: soft, NT, ND, +BS, no hepatosplenomegaly MS: FROM all 4 extremities Neuro: CN II-XII intact b/l, strength 5/5 b/l UE and LE, DTRs 2/4 UE and LE, sensation intact. Skin: warm, dry, intact, No rashes or lesions on exposed skin. Foot exam: Monofilament wnl on right and left feet. No edema, normal pulses ASSESSMENT/PLAN: 1. Well adult exam - ICD9: V70.0, ICD10: Z00.00 (primary diagnosis) - Counseled on healthy diet and regular exercise - Discussed need for and benefit of weight loss. BMI 34.71 kg/(m^2) 2. Derangement of medial meniscus of right knee - ICD9: 717.3, ICD10: M23.303 F/u with Orthopedics. 3. Type 2 diabetes mellitus without complication, without long-term current use of insulin (HCC) - ICD9: 250.00, ICD10: E11.9 - Uncontrolled - Continue current medications - would like him to start on CGM monitoring for blood glucose- will need to check insurance - Counseled on healthy diet and regular exercise - Discussed need for and benefit of weight loss. BMI 34.71 kg/(m^2) - HEMOGLOBIN A1C - COMPREHENSIVE METABOLIC PANEL - COMPLETE BLOOD COUNT AND DIFFERENTIAL - ALBUMIN/CREATININE RATIO, URINE 4. Hypertension, essential - ICD9: 401.9, ICD10: I10 - Controlled - Continue current medications - Recommend home blood pressure monitoring, to bring results to next visit - Encouraged sodium restriction, DASH or Mediterranean diet - Recommend regular aerobic exercise - THYROID STIMULATING HORMONE 5. Dyslipidemia - ICD9: 272.4, ICD10: E78.5 - Control undetermined, due for labs - Continue current medications - Counseled on healthy diet and regular exercise - LIPID PANEL, FASTING 6. Screening for prostate cancer - ICD9: V76.44, ICD10: Z12.5 - Counseled on healthy diet and regular exercise - Discussed need for and benefit of weight loss. BMI 34.71 kg/(m^2) - PSA/PROSTATE SPECIFIC ANTIGEN SCREENING 7. Nut allergy - ICD9: V15.05, ICD10: Z91.018 - ALGN CASHEW NUT IGE - ALGN PEANUT IGE - ALGN PISTACHIO IGE - ALGN WALNUT IGE Dami Good DO To ER if develops chest pain, shortness of breath, or severe worsening of symptoms. Discussed risks, benefits, alternatives, and potential side effects of medications. Patient expressed understanding and agreed with the plan. Dami Good DO [address] [place] [address] documented in this encounter [facility] 10-08-2024 Note HNO ID: [id number] Author: JASMIN FALCON, ? Service: ? Author Type: Physician Type: Progress Notes Filed: 10/08/2024 14:40 Note Text: Cosmo Savage is a 59-year-old male with a history of diabetes mellitus, presenting for a diabetic foot exam. Diabetes Mellitus: - Diagnosed 3-4 years ago. - Managed with Metformin. - Last A1c on 05/28/2023 was 8.4%; previous A1c two years ago was 7.1%. - Regularly checks blood glucose levels; last reading was 113 mg/dL in the morning. - Denies numbness, tingling, or burning in feet. - No current concerns for wounds or foot problems. - History of gout in the big toe years ago. - Sustained a toe injury (smashed right toe) about a year ago; no ongoing issues. 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 - Goal to discontinue medication by the end of the year. Musculoskeletal: (-) foot pain Skin: (-) wounds, (-) sores Neurological: (-) numbness, (-) tingling, (-) burning PAST MEDICAL HISTORY Diagnosis Date Diabetes mellitus (HCC) Essential hypertension Current Outpatient Medications Medication Sig Dispense Refill losartan (COZAAR) 100 mg tablet Take 100 mg by mouth once daily. metFORMIN (GLUCOPHAGE) 500 mg tablet Take 500 mg by mouth two times a day with meals. amLODIPine (NORVASC) 5 mg tablet Take 1 tablet by mouth once daily. 90 tablet 1 lancets ([employer] DELICA PLUS LANCET) 30 gauge Use as directed to test blood sugar twice daily 100 Each 11 No current facility-administered medications for this visit. Family History Problem Relation Age of Onset Glaucoma Mother Objective There were no vitals taken for this visit. - Cardiovascular: Dorsalis pedis and posterior tibial pulses palpable bilaterally; capillary refill <5 seconds; hair growth present on both feet. - Skin: No open sores on bilateral feet; minimal skin thickening at interphalangeal joint of bilateral hallux; skin well-hydrated. - Musculoskeletal: - Bilateral Feet: - Very small spur at bilateral second tarsometatarsal joint. - Mild arthritic bunion deformity; no pain reported. - Normal arch appearance; very mild bunion deformity. - Strength: 5/5 for dorsiflexion, plantarflexion, inversion, and eversion. - Neurological: - Light touch sensation intact bilaterally. - Vibratory sensation minimally decreased bilaterally. - Negative Tinel's sign bilaterally. Labs: (05/28/2023) Hemoglobin A1c: 8.4% (correlates to an average glucose of 194 mg/dL) Assessment AND Plan 1. Diabetic polyneuropathy associated with type 2 diabetes mellitus (HCC) (E11.42) - No current symptoms of numbness, tingling, or burning; no concerns for wounds. - Last A1c on 05/28/2023 was 8.4%, correlating to an average glucose of 194 mg/dL; previous A1c two years ago was 7.1%. - Educated patient on the risks of prolonged elevated A1c levels, including progressive loss of sensation in the feet. - Advised to avoid barefoot walking and to inspect feet daily for sores or calluses. - Recommended wearing supportive shoes such as Ignacio, HOKA, Asics, or New Balance. - Discussed the potential need for custom orthotics if foot, ankle, knee, or back pain develops; [facility] insurance covers custom orthotics. - Follow-up in one year for annual diabetic foot exam. 2. Hallux rigidus of left foot (M20.22) 3. Hallux rigidus of right foot (M20.21) - Mild arthritic bunion deformity noted bilaterally; no current pain reported. - Very tiny spur observed at the bilateral second tarsal metatarsal joint. - Advised patient to monitor for any pain or changes in the bunion deformity. - If pain or issues arise, will consider ordering X-rays to assess severity. - Continue current management with supportive footwear and foot care. Recording using Branch software for draft documentation of the visit was discussed with the patient/authorized public relations representative; all questions welcomed and answered. Patient/authorized public relations representative agreed to proceed Jasmin Falcon DPM [facility] 10-08-2024 History of Present illness Narrative Cosmo Savage is a 59-year-old male with a history of diabetes mellitus, presenting for a diabetic foot exam. Diabetes Mellitus: - Diagnosed 3-4 years ago. - Managed with Metformin. - Last A1c on 05/28/2023 was 8.4%; previous A1c two years ago was 7.1%. - Regularly checks blood glucose levels; last reading was 113 mg/dL in the morning. - Denies numbness, tingling, or burning in feet. - No current concerns for wounds or foot problems. - History of gout in the big toe years ago. - Sustained a toe injury (smashed right toe) about a year ago; no ongoing issues. 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 - Goal to discontinue medication by the end of the year. Musculoskeletal: (-) foot pain Skin: (-) wounds, (-) sores Neurological: (-) numbness, (-) tingling, (-) burning PAST MEDICAL HISTORY Diagnosis Date Diabetes mellitus (HCC) Essential hypertension Current Outpatient Medications Medication Sig Dispense Refill losartan (COZAAR) 100 mg tablet Take 100 mg by mouth once daily. metFORMIN (GLUCOPHAGE) 500 mg tablet Take 500 mg by mouth two times a day with meals. amLODIPine (NORVASC) 5 mg tablet Take 1 tablet by mouth once daily. 90 tablet 1 lancets (TapZenTOUCH DELICA PLUS LANCET) 30 gauge Use as directed to test blood sugar twice daily 100 Each 11 No current facility-administered medications for this visit. Family History Problem Relation Age of Onset Glaucoma Mother Objective There were no vitals taken for this visit. - Cardiovascular: Dorsalis pedis and posterior tibial pulses palpable bilaterally; capillary refill <5 seconds; hair growth present on both feet. - Skin: No open sores on bilateral feet; minimal skin thickening at interphalangeal joint of bilateral hallux; skin well-hydrated. - Musculoskeletal: - Bilateral Feet: - Very small spur at bilateral second tarsometatarsal joint. - Mild arthritic bunion deformity; no pain reported. - Normal arch appearance; very mild bunion deformity. - Strength: 5/5 for dorsiflexion, plantarflexion, inversion, and eversion. - Neurological: - Light touch sensation intact bilaterally. - Vibratory sensation minimally decreased bilaterally. - Negative Tinel's sign bilaterally. Labs: (05/28/2023) Hemoglobin A1c: 8.4% (correlates to an average glucose of 194 mg/dL) Assessment & Plan 1. Diabetic polyneuropathy associated with type 2 diabetes mellitus (HCC) (E11.42) - No current symptoms of numbness, tingling, or burning; no concerns for wounds. - Last A1c on 05/28/2023 was 8.4%, correlating to an average glucose of 194 mg/dL; previous A1c two years ago was 7.1%. - Educated patient on the risks of prolonged elevated A1c levels, including progressive loss of sensation in the feet. - Advised to avoid barefoot walking and to inspect feet daily for sores or calluses. - Recommended wearing supportive shoes such as Ignacio, HOKA, Asics, or New Balance. - Discussed the potential need for custom orthotics if foot, ankle, knee, or back pain develops; [facility] insurance covers custom orthotics. - Follow-up in one year for annual diabetic foot exam. 2. Hallux rigidus of left foot (M20.22) 3. Hallux rigidus of right foot (M20.21) - Mild arthritic bunion deformity noted bilaterally; no current pain reported. - Very tiny spur observed at the bilateral second tarsal metatarsal joint. - Advised patient to monitor for any pain or changes in the bunion deformity. - If pain or issues arise, will consider ordering X-rays to assess severity. - Continue current management with supportive footwear and foot care. Recording using Branch software for draft documentation of the visit was discussed with the patient/authorized public relations representative; all questions welcomed and answered. Patient/authorized public relations representative agreed to proceed Jasmin Falcon DPM Patient presents with: Left Foot - New, Diabetic Foot Care Right Foot - New, Diabetic Foot Care Patient presents as new patient for diabetic foot care. Also due for diabetic foot exam. Denies any pain or problems. documented in this encounter [facility] 10-08-2024 Instructions Jasmin Falcon - 10/08/2024 2:04 PM EDT - Continue taking metformin as prescribed. - Avoid walking barefoot; wear shoes at all times, even when indoors. - Inspect your feet daily for any cuts, sores, calluses, or other changes. - Apply lotion to your feet daily to keep the skin moisturized (avoid putting lotion between toes). - Wear well-fitting, supportive shoes (for example, Ignacio, HOKA, Asics, New Balance). - Keep toenails trimmed straight across to prevent ingrown nails. - If you develop foot pain, increased skin thickening, bunion discomfort, open sores, or calluses, contact the clinic--x-rays or other treatments can be arranged. - Consider custom orthotics (covered by your [facility] insurance) if you experience foot, ankle, knee, or back pain to improve weight distribution. - Return in one year for your annual diabetic foot exam to monitor foot health and prevent complications. Diabetes Foot Care Instructions When you have diabetes, proper foot care is very important. Poor foot care may lead to amputation of a foot or leg. As a person with diabetes, you are more vulnerable to foot problems, because diabetes can damage your nerves and reduce blood flow to your feet. Here are some diabetes foot care tips to follow: Wash and Dry Your Feet Daily Use mild soaps Use warm water Pat your skin dry; do not rub. Thoroughly dry your feet. After washing, use lotion on your feet to prevent cracking. Do not put lotion between your toes. Examine Your Feet Each Day Check the tops and bottoms of your feet. Have someone else look at your feet if you cannot see them. Check for dry, cracked skin. Look for blisters, cuts, scratches, or other sores. Check for redness, increased warmth, or tenderness when touching any area of your feet. Check for ingrown toenails, corns, and calluses. If you get a blister or sore from your shoes, do not pop it. Apply a bandage and wear a different pair of shoes. Take Care of Your Toenails Cut toenails after bathing, when they are soft. Cut toenails straight across and smooth with a nail file. Avoid cutting into the corners of toes. Do not cut cuticles. If you have neuropathy (or decreased sensation in your feet) a shaper machine hand should always cut your toenails. Be Careful When Exercising Walk and exercise in comfortable shoes. Do not exercise when you have open sores on your feet. Protect Your Feet With Shoes and Socks Never go barefoot. Always protect your feet by wearing shoes or hard-soled slippers or footwear. Avoid shoes with high heels and pointed toes. Avoid shoes that expose your toes or heels (such as open-toed shoes or sandals). These types of shoes increase your risk for injury and potential infections. Try on new footwear with the type of socks you usually wear. Do not wear new shoes for more than an hour at a time. Change your socks daily. Look and feel inside your shoes before putting them on to make sure there are no foreign objects or rough areas. Avoid tight socks. Wear natural-fiber socks (cotton, wool, or a cotton-wool blend). Wear special shoes if your health care provider recommends them. Wear shoes/boots that will protect your feet from various weather conditions (cold, moisture, etc.). Make sure your shoes fit properly. If you have neuropathy (nerve damage), you may not notice that your shoes are too tight. Perform the footwear test described below. Footwear Test Use this simple test to see if your shoes fit correctly: Stand on a piece of paper. (Make sure you are standing and not sitting, because your foot changes shape when you stand.) Trace the outline of your foot. Trace the outline of your shoe. Compare the tracings: Is the shoe too narrow? Is your foot crammed into the shoe? The shoe should be at least 1/2 inch longer than your longest toe and as wide as your foot. Proper Shoe Choices The following types of shoes are best for people with diabetes Closed toes and heels Leather uppers without a seam inside At least 1/2 inch extra space at the end of your longest toe Inside of shoe should be soft with no rough areas Outer sole should be made of stiff material Shoes should be at least as wide as your feet Tips for Foot Care in Diabetes Don't wait to treat a minor foot problem if you have diabetes. Follow your health care provider's guidelines and first aid guidelines. Report foot injuries and infections to your health care provider immediately. Check water temperature with your elbow, not your foot. Do not use a heating pad on your feet. Do not cross your legs. Do not self-treat your corns, calluses, or other foot problems. Go to your health care provider or shaper machine hand to treat these conditions. documented in this encounter [facility] 10-08-2024 Note HNO ID: [id number] Author: PAYAL FENG RN Service: ? Author Type: Registered Nurse Type: Progress Notes Filed: 10/08/2024 14:40 Note Text: Patient presents with: Left Foot - New, Diabetic Foot Care Right Foot - New, Diabetic Foot Care Patient presents as new patient for diabetic foot care. Also due for diabetic foot exam. Denies any pain or problems. [facility] 10-06-2024 History of Present illness Narrative Radiology Service Progress Note PATIENT NAME: Conner Kong DATE OF SERVICE: October 06, 2024 TIME: 8:24 AM PATIENT IDENTITY VERIFICATION COMPLETED USING TWO (2) IDENTIFIERS: Name and Date of confirmed by patient verbally and Name and Date of confirmed by identification band. FALL SCREENING: Has the patient had 2 falls in the last year or 1 fall with injury or currently using an Ambulatory Assistive Device (Walker, Cane, Wheelchair, Crutches, etc.)? No PATIENT GENDER DATA: Assigned male at PATIENT RELEVANT IMPLANT DATA REVIEWED: Yes PATIENT PRESENTS WITH AN IMPLANTABLE OR ATTACHED MANAGER PLAN: No RADIOLOGY DEPARTMENT: MR; Exam(s) Completed: Lower MSK: Knee, right . Lavender Administered: No PERIPHERAL IV DATA: Not applicable SIGNED BY: DALY Schroeder October 06, 2024 8:24 AM documented in this encounter [facility] 10-06-2024 Note HNO ID: [id number] Author: ALEYDA LANDIN CT Service: Radiology Author Type: Technologist Type: Progress Notes Filed: 10/06/2024 08:24 Note Text: Radiology Service Progress Note PATIENT NAME: Conner Kong DATE OF SERVICE: October 06, 2024 TIME: 8:24 AM PATIENT IDENTITY VERIFICATION COMPLETED USING TWO (2) IDENTIFIERS: Name and Date of confirmed by patient verbally and Name and Date of confirmed by identification band. FALL SCREENING: Has the patient had 2 falls in the last year or 1 fall with injury or currently using an Ambulatory Assistive Device (Walker, Cane, Wheelchair, Crutches, etc.)? No PATIENT GENDER DATA: Assigned male at PATIENT RELEVANT IMPLANT DATA REVIEWED: Yes PATIENT PRESENTS WITH AN IMPLANTABLE OR ATTACHED MANAGER PLAN: No RADIOLOGY DEPARTMENT: MR; Exam(s) Completed: Lower MSK: Knee, right . Lavender Administered: No PERIPHERAL IV DATA: Not applicable SIGNED BY: DAYL Schroeder October 06, 2024 8:24 AM [facility] 09-18-2024 Note HNO ID: [id number] Author: JESSE TORRES, Service: ? Author Type: Physician Type: Progress Notes Filed: 09/18/2024 15:10 Note Text: Cosmo Savage is a 59-year-old male presenting with acute onset of right knee pain and inability to fully extend the knee following a minor incident at a choir concert last night. Conner reports that he was at a choir concert last night when he attempted to demonstrate a running motion. During this demonstration, he suddenly experienced a sharp pain in his right knee, which nearly caused him to fall. He describes the pain as acute and severe, stating, I don't know what the hell I did. I said, something's not right. Since the incident, he has been unable to fully extend his right knee without experiencing significant pain and tightness. He notes that the pain is localized to the medial joint line and is tender to palpation. He also reports a sensation of something being lodged and pushing up when attempting to straighten his leg. Prior to this incident, Conner had been experiencing swelling in the same knee, which had recently improved. He had been wearing a knee sleeve at work, where he primarily walks around, but had not been wearing it as consistently due to the warmer weather. After the incident, he applied ice and elevated the knee, which provided some relief. He also attempted a compression technique he found on YouTube, which he reports worked great. Conner denies any swelling in the knee following the incident and is able to bend the knee without pain. He is concerned about the sudden change in his ability to extend the knee and the localized tenderness. He has been using crutches to assist with mobility and plans to continue using them for safety. Musculoskeletal: (+) knee pain, (+) difficulty extending knee, (-) swelling Objective There were no vitals taken for this visit. General: No acute distress. MSK/Ext: Tenderness along the medial joint line of the knee; no effusion; limited extension with pain; stiffness noted with extension. 1. Derangement of medial meniscus of right knee (M23.303) Acute onset of pain and inability to fully extend the right knee following a sudden movement. Examination reveals tenderness along the medial joint line with no effusion. Suspected complex medial meniscus tear causing mechanical obstruction in joint motion. - Administered lidocaine injection to the medial aspect of the knee to achieve local anesthesia. - Performed manual manipulation to attempt to free the suspected meniscal tear. - Advised patient to minimize activity over the weekend to allow inflammation to subside; use crutches as needed. - Ordered MRI of the right knee to confirm the presence of a meniscal tear and assess the extent of the injury. - Patient may resume work if pain is manageable. Attestation Recording using Branch software for draft documentation of the visit was discussed with the patient/authorized public relations representative; all questions welcomed and answered. Patient/authorized public relations representative agreed to proceed [facility] 09-18-2024 History of Present illness Narrative Cosmo Savage is a 59-year-old male presenting with acute onset of right knee pain and inability to fully extend the knee following a minor incident at a choir concert last night. Conner reports that he was at a choir concert last night when he attempted to demonstrate a running motion. During this demonstration, he suddenly experienced a sharp pain in his right knee, which nearly caused him to fall. He describes the pain as acute and severe, stating, I don't know what the hell I did. I said, something's not right. Since the incident, he has been unable to fully extend his right knee without experiencing significant pain and tightness. He notes that the pain is localized to the medial joint line and is tender to palpation. He also reports a sensation of something being lodged and pushing up when attempting to straighten his leg. Prior to this incident, Conner had been experiencing swelling in the same knee, which had recently improved. He had been wearing a knee sleeve at work, where he primarily walks around, but had not been wearing it as consistently due to the warmer weather. After the incident, he applied ice and elevated the knee, which provided some relief. He also attempted a compression technique he found on YouTube, which he reports worked great. Conner denies any swelling in the knee following the incident and is able to bend the knee without pain. He is concerned about the sudden change in his ability to extend the knee and the localized tenderness. He has been using crutches to assist with mobility and plans to continue using them for safety. Musculoskeletal: (+) knee pain, (+) difficulty extending knee, (-) swelling Objective There were no vitals taken for this visit. General: No acute distress. MSK/Ext: Tenderness along the medial joint line of the knee; no effusion; limited extension with pain; stiffness noted with extension. 1. Derangement of medial meniscus of right knee (M23.303) Acute onset of pain and inability to fully extend the right knee following a sudden movement. Examination reveals tenderness along the medial joint line with no effusion. Suspected complex medial meniscus tear causing mechanical obstruction in joint motion. - Administered lidocaine injection to the medial aspect of the knee to achieve local anesthesia. - Performed manual manipulation to attempt to free the suspected meniscal tear. - Advised patient to minimize activity over the weekend to allow inflammation to subside; use crutches as needed. - Ordered MRI of the right knee to confirm the presence of a meniscal tear and assess the extent of the injury. - Patient may resume work if pain is manageable. Attestation Recording using Branch software for draft documentation of the visit was discussed with the patient/authorized public relations representative; all questions welcomed and answered. Patient/authorized public relations representative agreed to proceed AMB ROOMING INTAKE FLOWSHEET DATA Pain Pain Level: 8 Pain Location: Knee-Right Description: Sharp, Aching Duration Amount of Time: (ongoing) Frequency: Continuous Intervention/Comfort measure: Other: See comment, Medication (compression) documented in this encounter [facility] 09-18-2024 Note HNO ID: [id number] Author: BELKIS HALE MA Service: ? Author Type: Free Lance Artist Type: Progress Notes Filed: 09/18/2024 15:10 Note Text: AMB ROOMING INTAKE FLOWSHEET DATA Pain Pain Level: 8 Pain Location: Knee-Right Description: Sharp, Aching Duration Amount of Time: (ongoing) Frequency: Continuous Intervention/Comfort measure: Other: See comment, Medication (compression) [facility] 09-18-2024 Telephone encounter Note Patients stopped in the office. States the patient tweaked his right knee last night and today is not able to bear any weight on the leg. She is requesting an appointment today for evaluation because the patient had to call off work. [facility] 09-18-2024 Miscellaneous Notes Patients stopped in the office. States the patient tweaked his right knee last night and today is not able to bear any weight on the leg. She is requesting an appointment today for evaluation because the patient had to call off work. documented in this encounter [facility] 09-14-2024 Note Addended by: MARA WHITE on: 09/14/2024 11:07 AM Modules accepted: Orders [facility] 09-14-2024 Miscellaneous Notes Addended by: MARA WHITE on: 09/14/2024 11:07 AM Modules accepted: Orders Pt. Niels in October is a [employer] employee. He is out of refills documented in this encounter [facility] 09-14-2024 Telephone encounter Note Pt. Niels in October is a [employer] employee. He is out of refills [facility] Work Phone: 09-09-2024 Note HNO ID: [id number] Author: JESSE TORRES, DO Service: ? Author Type: Physician Type: Progress Notes Filed: 09/09/2024 14:55 Note Text: Cosmo Savage is a 59-year-old male presenting with a laceration to the right finger and right knee pain. Conner sustained a laceration to his right finger 1 week ago while clearing grass from a running lawnmower. He reports that the blade nicked his finger, causing significant pain and bleeding. He was evaluated at [facility] the following day, where an x-ray was performed, and he was prescribed doxycycline. He has been applying triple antibiotic ointment and a bandage daily, removing the bandage after work to allow the wound to air dry. He works near [employer] and keeps the wound covered during work hours. Additionally, Conner reports right knee pain and swelling following an incident 3 weeks ago when he tripped over a chair leg in the dark, causing his knee to buckle backward. He experienced a pinch sensation at the time but did not seek medical attention. The following day, he felt a similar sensation while walking down a hill. He has been babying the knee since then. Last weekend, he spent significant time on his knees while installing a bathroom floor, which exacerbated the pain and swelling. He notes that the knee is noticeably swollen compared to the left knee and experiences increased pain when transitioning from sitting to standing. He denies any previous significant injuries or surgeries to the knee, though he recalls incidental injuries such as hitting it on a trailer hitch. He is on his feet all day at work and takes many steps daily. Musculoskeletal: (+) right knee pain, (+) right knee swelling Skin: (+) right finger pain Objective There were no vitals taken for this visit. General: No acute distress. MSK/Ext: Laceration near nail bed of finger; right knee with visible swelling compared to left knee; tenderness with patellar compression; mild pain with varus and valgus stress; significant medial knee pain; no laxity in posterior cruciate ligament, anterior cruciate ligament, or collateral ligaments. Imaging: (Last Saturday) - Finger X-ray: No evidence of fracture or bone involvement. Tuft appears normal, no sign of open fracture. - Knee X-ray: Soft tissue swelling within the joint, well-maintained joint spaces, minimal bone spurring, no significant arthritic changes. 1. Effusion of right knee joint (M25.461) Sprain of unspecified site of right knee, initial encounter (S83.91XA) Right knee effusion with medial joint line pain and limited range of motion due to swelling. No evidence of ligamentous laxity on examination. X-rays show soft tissue swelling but well-maintained joint spaces and no significant arthritic changes. Differential diagnosis includes meniscal injury. - Administered intra-articular corticosteroid injection to reduce inflammation and swelling. - Provided a compression knee sleeve to be worn during activities. - Monitor for improvement in symptoms; follow-up if no significant improvement. 2. Laceration without foreign body of right index finger with damage to nail, initial encounter (S61.310A) Laceration near the nail bed of the right index finger from a lawnmower blade. X-rays show no evidence of fracture. Currently being treated with antibiotic ointment and protective dressing. - Continue daily application of triple antibiotic ointment and protective dressing during work hours. - Allow the wound to air dry after work to promote healing. - Monitor for signs of infection; follow-up if any concerns arise. Large Joint Arthro/Inj: R knee joint 09/09/2024 2:53 PM The procedure site was prepped in the usual sterile fashion. Site: R knee joint Medications: 4 mg dexAMETHasone sodium phosphate 4 mg/mL; 40 mg triamcinolone acetonide 40 mg/mL Anesthetics: 4 mL lidocaine (PF) 10 mg/mL (1 %); 4 mL BUPivacaine (PF) 0.5 % (5 mg/mL) Outcome: Tolerated well, no immediate complications Post-injection instructions were reviewed with the patient and the patient voiced understanding of these instructions. Informed Consent Consent Obtained: Verbal [place] Protocol SIGN IN TIME OUT Attestation Recording using Branch software for draft documentation of the visit was discussed with the patient/authorized public relations representative; all questions welcomed and answered. Patient/authorized public relations representative agreed to proceed [facility] 09-09-2024 History of Present illness Narrative Associated Order(s): Large Joint Arthro/Inj: R knee joint Post-Procedure Diagnose(s): Effusion of right knee joint Cosmo Savage is a 59-year-old male presenting with a laceration to the right finger and right knee pain. Conner sustained a laceration to his right finger 1 week ago while clearing grass from a running lawnmower. He reports that the blade nicked his finger, causing significant pain and bleeding. He was evaluated at [facility] the following day, where an x-ray was performed, and he was prescribed doxycycline. He has been applying triple antibiotic ointment and a bandage daily, removing the bandage after work to allow the wound to air dry. He works near [employer] and keeps the wound covered during work hours. Additionally, Conner reports right knee pain and swelling following an incident 3 weeks ago when he tripped over a chair leg in the dark, causing his knee to buckle backward. He experienced a pinch sensation at the time but did not seek medical attention. The following day, he felt a similar sensation while walking down a hill. He has been babying the knee since then. Last weekend, he spent significant time on his knees while installing a bathroom floor, which exacerbated the pain and swelling. He notes that the knee is noticeably swollen compared to the left knee and experiences increased pain when transitioning from sitting to standing. He denies any previous significant injuries or surgeries to the knee, though he recalls incidental injuries such as hitting it on a trailer hitch. He is on his feet all day at work and takes many steps daily. Musculoskeletal: (+) right knee pain, (+) right knee swelling Skin: (+) right finger pain Objective There were no vitals taken for this visit. General: No acute distress. MSK/Ext: Laceration near nail bed of finger; right knee with visible swelling compared to left knee; tenderness with patellar compression; mild pain with varus and valgus stress; significant medial knee pain; no laxity in posterior cruciate ligament, anterior cruciate ligament, or collateral ligaments. Imaging: (Last Saturday) - Finger X-ray: No evidence of fracture or bone involvement. Tuft appears normal, no sign of open fracture. - Knee X-ray: Soft tissue swelling within the joint, well-maintained joint spaces, minimal bone spurring, no significant arthritic changes. 1. Effusion of right knee joint (M25.461) Sprain of unspecified site of right knee, initial encounter (S83.91XA) Right knee effusion with medial joint line pain and limited range of motion due to swelling. No evidence of ligamentous laxity on examination. X-rays show soft tissue swelling but well-maintained joint spaces and no significant arthritic changes. Differential diagnosis includes meniscal injury. - Administered intra-articular corticosteroid injection to reduce inflammation and swelling. - Provided a compression knee sleeve to be worn during activities. - Monitor for improvement in symptoms; follow-up if no significant improvement. 2. Laceration without foreign body of right index finger with damage to nail, initial encounter (S61.310A) Laceration near the nail bed of the right index finger from a lawnmower blade. X-rays show no evidence of fracture. Currently being treated with antibiotic ointment and protective dressing. - Continue daily application of triple antibiotic ointment and protective dressing during work hours. - Allow the wound to air dry after work to promote healing. - Monitor for signs of infection; follow-up if any concerns arise. Large Joint Arthro/Inj: R knee joint 09/09/2024 2:53 PM The procedure site was prepped in the usual sterile fashion. Site: R knee joint Medications: 4 mg dexAMETHasone sodium phosphate 4 mg/mL; 40 mg triamcinolone acetonide 40 mg/mL Anesthetics: 4 mL lidocaine (PF) 10 mg/mL (1 %); 4 mL BUPivacaine (PF) 0.5 % (5 mg/mL) Outcome: Tolerated well, no immediate complications Post-injection instructions were reviewed with the patient and the patient voiced understanding of these instructions. Informed Consent Consent Obtained: Verbal [place] Protocol SIGN IN TIME OUT Attestation Recording using Branch software for draft documentation of the visit was discussed with the patient/authorized public relations representative; all questions welcomed and answered. Patient/authorized public relations representative agreed to proceed Patient presents with: Right knee pain and right index finger laceration AMB ROOMING INTAKE FLOWSHEET DATA Pain Pain Level: 6 Pain Location: Knee-Right Description: Aching Duration Amount of Time: 3 Duration Units: Weeks Frequency: Intermittent (Occurs with weight bearing) Intervention/Comfort measure: Medication documented in this encounter [facility] 09-09-2024 Note HNO ID: [id number] Author: MAGUI ANDERSON MA Service: ? Author Type: Free Lance Artist Type: Progress Notes Filed: 09/09/2024 14:55 Note Text: Patient presents with: Right knee pain and right index finger laceration AMB ROOMING INTAKE FLOWSHEET DATA Pain Pain Level: 6 Pain Location: Knee-Right Description: Aching Duration Amount of Time: 3 Duration Units: Weeks Frequency: Intermittent (Occurs with weight bearing) Intervention/Comfort measure: Medication [facility] 09-07-2024 History of Present illness Narrative Radiology Service Progress Note PATIENT NAME: Conner Kong DATE OF SERVICE: September 07, 2024 TIME: 4:25 PM PATIENT IDENTITY VERIFICATION COMPLETED USING TWO (2) IDENTIFIERS: Name and Date of confirmed by patient verbally. FALL SCREENING: Has the patient had 2 falls in the last year or 1 fall with injury or currently using an Ambulatory Assistive Device (Walker, Cane, Wheelchair, Crutches, etc.)? No PATIENT GENDER DATA: Assigned male at PATIENT RELEVANT IMPLANT DATA REVIEWED: Not Applicable PATIENT PRESENTS WITH AN IMPLANTABLE OR ATTACHED MANAGER PLAN: No RADIOLOGY DEPARTMENT: General X-ray: Exam(s) Completed: Lower Extremity X-Ray(s): Knee, AP / Lat / Tunne / Merchant Right and Wt. Bearing PERIPHERAL IV DATA: Not applicable SIGNED BY: RT Roxanne(Nanda) September 07, 2024 4:25 PM documented in this encounter [facility] 09-07-2024 Note HNO ID: [id number] Author: LAYLA GARCIA RT(R) Service: Radiology Author Type: Technologist Type: Progress Notes Filed: 09/07/2024 16:38 Note Text: Radiology Service Progress Note PATIENT NAME: Conner Kong DATE OF SERVICE: September 07, 2024 TIME: 4:25 PM PATIENT IDENTITY VERIFICATION COMPLETED USING TWO (2) IDENTIFIERS: Name and Date of confirmed by patient verbally. FALL SCREENING: Has the patient had 2 falls in the last year or 1 fall with injury or currently using an Ambulatory Assistive Device (Walker, Cane, Wheelchair, Crutches, etc.)? No PATIENT GENDER DATA: Assigned male at PATIENT RELEVANT IMPLANT DATA REVIEWED: Not Applicable PATIENT PRESENTS WITH AN IMPLANTABLE OR ATTACHED MANAGER PLAN: No RADIOLOGY DEPARTMENT: General X-ray: Exam(s) Completed: Lower Extremity X-Ray(s): Knee, AP / Lat / Tunne / Merchant Right and Wt. Bearing PERIPHERAL IV DATA: Not applicable SIGNED BY: RT Roxanne(R) September 07, 2024 4:25 PM [facility] 09-07-2024 Note HNO ID: [id number] Author: HARINI MARIANO APRN.SENIOR TELECOMMUNICATIONS TECHNICIAN Service: ? Author Type: Nurse Practitioner Type: Progress Notes Filed: 09/07/2024 17:21 Note Text: Subjective The history is provided by the patient. No cotton ginner was used. HPI Conner Kong is a 59 year old male who presents today for CC of right knee pain for 3 weeks. Left Knee Pain: - Onset: Approximately 2.5 weeks ago. - Initial Incident: Hyperextension of the left knee when a chair hit the knee while walking on the deck. - Second Incident: Similar hyperextension while walking down a hill the following day. - Pain initially mild, but has persisted and worsened over time. - Notable swelling in the left knee. - Pain is absent when sitting but intensifies upon standing and walking. - Describes a sensation of the knee snapping back and feeling unstable. - Aggravated by squatting and putting on socks. - Using Tylenol, Biofreeze, and ice for pain management. - Unable to take ibuprofen due to antihypertensive medication. 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 - Recent activities, including remodeling a bathroom floor and walking at [employer] [place], have increased discomfort. BP 144/88 Pulse 82 Temp 36.8 ?C (98.2 ?F) (Tympanic) Resp 16 Wt 107.6 kg (237 lb 3.4 oz) SpO2 96% Social History Tobacco Use Smoking status: Never Smokeless tobacco: Never PAST MEDICAL HISTORY Diagnosis Date Diabetes mellitus (HCC) Essential hypertension I have confirmed and edited as necessary, the [facility] Musculoskeletal: (+) knee pain, (+) knee swelling, (+) knee instability, (+) difficulty ambulating Objective Physical Exam Vitals and nursing note reviewed. Cardiovascular: Pulses: Popliteal pulses are 2+ on the right side and 2+ on the left side. Dorsalis pedis pulses are 2+ on the right side and 2+ on the left side. Posterior tibial pulses are 2+ on the right side and 2+ on the left side. Pulmonary: Effort: Pulmonary effort is normal. Musculoskeletal: Right knee: Swelling present. No deformity, effusion, erythema, ecchymosis, lacerations, bony tenderness or crepitus. Decreased range of motion. Tenderness present over the lateral joint line. LCL laxity present. No MCL laxity. Abnormal meniscus. Normal alignment and normal patellar mobility. Left knee: Normal. Skin: General: Skin is warm and dry. Neurological: Mental Status: He is alert and oriented to person, place, and time. Sensory: Sensation is intact. Deep Tendon Reflexes: Reflexes are normal and symmetric. Psychiatric: Mood and Affect: Affect normal. Differential Diagnoses - knee strain is more likely for the following reason(s): suggested by HANDP - patellar fracture is less likely for the following reason(s): no evidence on imaging ASSESSMENT/PLAN: 1. Acute pain of right knee - ICD9: 719.46, ICD10: M25.561 Tylenol, compression as needed Rest, elevate Follow up with Ortho for further evaluation and treatment. - XR KNEE GENERAL 4V AP BOTH/PA BOTH/LAT/MERC RIGHT IMPRESSION: Small right suprapatellar joint effusion. No radiographic evidence of acute osseous abnormality. Suggestion of small bilateral fibular neck exostoses. FINDINGS: Small suprapatellar joint effusion. No acute fracture or dislocation identified. Joint spaces preserved. Suggestion of small exostosis arising from the medial aspect of the fibular neck. Left knee: No acute fracture or dislocation identified. Joint spaces preserved. Suggestion of small exostosis arising from the medial aspect of the fibular neck Interpreted by : PÉREZ RYAN MD - CONSULT TO ORTHOPAEDICS Diagnosis and treatment plan were discussed and questions were answered to the patient's satisfaction. Pt acknowledged understanding of concepts and follow up plan. Specific signs and symptoms that would indicate the need for higher level of care were discussed in detail warranting prompt ER evaluation. Harini Mariano APRN.[facility] 09-07-2024 History of Present illness Narrative Subjective The history is provided by the patient. No cotton ginner was used. ANA Kong is a 59 year old male who presents today for CC of right knee pain for 3 weeks. Left Knee Pain: - Onset: Approximately 2.5 weeks ago. - Initial Incident: Hyperextension of the left knee when a chair hit the knee while walking on the deck. - Second Incident: Similar hyperextension while walking down a hill the following day. - Pain initially mild, but has persisted and worsened over time. - Notable swelling in the left knee. - Pain is absent when sitting but intensifies upon standing and walking. - Describes a sensation of the knee snapping back and feeling unstable. - Aggravated by squatting and putting on socks. - Using Tylenol, Biofreeze, and ice for pain management. - Unable to take ibuprofen due to antihypertensive medication. 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 - Recent activities, including remodeling a bathroom floor and walking at [employer] [place], have increased discomfort. BP 144/88 Pulse 82 Temp 36.8 C (98.2 F) (Tympanic) Resp 16 Wt 107.6 kg (237 lb 3.4 oz) SpO2 96% Social History Tobacco Use Smoking status: Never Smokeless tobacco: Never PAST MEDICAL HISTORY Diagnosis Date Diabetes mellitus (HCC) Essential hypertension I have confirmed and edited as necessary, the [facility] Musculoskeletal: (+) knee pain, (+) knee swelling, (+) knee instability, (+) difficulty ambulating Objective Physical Exam Vitals and nursing note reviewed. Cardiovascular: Pulses: Popliteal pulses are 2+ on the right side and 2+ on the left side. Dorsalis pedis pulses are 2+ on the right side and 2+ on the left side. Posterior tibial pulses are 2+ on the right side and 2+ on the left side. Pulmonary: Effort: Pulmonary effort is normal. Musculoskeletal: Right knee: Swelling present. No deformity, effusion, erythema, ecchymosis, lacerations, bony tenderness or crepitus. Decreased range of motion. Tenderness present over the lateral joint line. LCL laxity present. No MCL laxity. Abnormal meniscus. Normal alignment and normal patellar mobility. Left knee: Normal. Skin: General: Skin is warm and dry. Neurological: Mental Status: He is alert and oriented to person, place, and time. Sensory: Sensation is intact. Deep Tendon Reflexes: Reflexes are normal and symmetric. Psychiatric: Mood and Affect: Affect normal. Differential Diagnoses - knee strain is more likely for the following reason(s): suggested by H&P - patellar fracture is less likely for the following reason(s): no evidence on imaging ASSESSMENT/PLAN: 1. Acute pain of right knee - ICD9: 719.46, ICD10: M25.561 Tylenol, compression as needed Rest, elevate Follow up with Ortho for further evaluation and treatment. - XR KNEE GENERAL 4V AP BOTH/PA BOTH/LAT/MERC RIGHT IMPRESSION: Small right suprapatellar joint effusion. No radiographic evidence of acute osseous abnormality. Suggestion of small bilateral fibular neck exostoses. FINDINGS: Small suprapatellar joint effusion. No acute fracture or dislocation identified. Joint spaces preserved. Suggestion of small exostosis arising from the medial aspect of the fibular neck. Left knee: No acute fracture or dislocation identified. Joint spaces preserved. Suggestion of small exostosis arising from the medial aspect of the fibular neck Interpreted by : PÉREZ RYAN MD - CONSULT TO ORTHOPAEDICS Diagnosis and treatment plan were discussed and questions were answered to the patient's satisfaction. Pt acknowledged understanding of concepts and follow up plan. Specific signs and symptoms that would indicate the need for higher level of care were discussed in detail warranting prompt ER evaluation. Harini Mariano APRN.CNP documented in this encounter [facility] 09-02-2024 Note HNO ID: [id number] Author: KIM TAVARES RT(R) Service: ? Author Type: Shopper'S Aide Type: Progress Notes Filed: 09/02/2024 11:40 Note Text: Radiology Service Progress Note PATIENT NAME: Conner Kong DATE OF SERVICE: September 02, 2024 TIME: 11:31 AM PATIENT IDENTITY VERIFICATION COMPLETED USING TWO (2) IDENTIFIERS: Name and Date of confirmed by patient verbally. FALL SCREENING: Has the patient had 2 falls in the last year or 1 fall with injury or currently using an Ambulatory Assistive Device (Walker, Cane, Wheelchair, Crutches, etc.)? No PATIENT GENDER DATA: Assigned male at PATIENT RELEVANT IMPLANT DATA REVIEWED: Yes PATIENT PRESENTS WITH AN IMPLANTABLE OR ATTACHED MANAGER PLAN: No RADIOLOGY DEPARTMENT: General X-ray: Exam(s) Completed: Upper Extremity X-Ray(s): Fingers/Thumb, right index PERIPHERAL IV DATA: Not applicable SIGNED BY: RT Deep(R) September 02, 2024 11:31 AM [facility] 09-02-2024 Note HNO ID: [id number] Author: JOHN ANDERSON APRN.CNP Service: ? Author Type: Nurse Practitioner Type: Progress Notes Filed: 09/02/2024 12:46 Note Text: [facility] Subjective Conner Kong is a 59 year old male. Patient presents with: Laceration: Laceration right index finger-happened last night Patient came in with complaints of laceration to right index finger. Patient says he was getting a chunk of grass unstuck from the lower and the mower blade clipped him. Patient denies any loss of feeling or range of motion. The history is provided by the patient. No cotton ginner was used. Laceration Review of Systems Constitutional: Negative. HENT: Negative. Objective BP 132/82 Pulse 80 Temp 36.3 ?C (97.4 ?F) (Tympanic) Resp 16 Wt 107 kg (235 lb 14.3 oz) SpO2 96% Physical Exam Constitutional: Appearance: Normal appearance. Pulmonary: Effort: Pulmonary effort is normal. Musculoskeletal: Hands: Comments: Patient does have what appears to be avulsion laceration in the area marked above. Extension and flexion are within normal limits. Circulation is intact sensation is intact no active bleeding at this time. Neurological: Mental Status: He is alert. PAST MEDICAL HISTORY Diagnosis Date Diabetes mellitus (HCC) Essential hypertension No past surgical history on file. ALLERGIES Penicillins MEDICATIONS losartan (COZAAR) 100 mg tablet Take 1 tablet by mouth daily metFORMIN ER (GLUCOPHAGE XR) 500 mg 24 hr tablet Take 1 tablet by mouth two times a day. amLODIPine (NORVASC) 5 mg tablet TAKE 1 TABLET BY MOUTH EVERY DAY losartan (COZAAR) 100 mg tablet Take 1 tablet by mouth daily (Patient not taking: Reported on 07/31/2024) metFORMIN ER (GLUCOPHAGE XR) 500 mg 24 hr tablet Take 1(one) tablet by mouth two times a day. (Patient not taking: Reported on 07/31/2024) amLODIPine (NORVASC) 5 mg tablet Take1 (one) tablet by mouth twice daily (Patient not taking: Reported on 07/31/2024) metFORMIN ER (GLUCOPHAGE XR) 500 mg 24 hr tablet Take 1 (one) tablet by mouth twice daily (Patient not taking: Reported on 07/31/2024) amLODIPine (NORVASC) 5 mg tablet Take 1 tablet by mouth twice daily (Patient not taking: Reported on 07/31/2024) lancets ([employer] PLUS LANCET) 30 gauge Use as directed to test blood sugar twice daily amLODIPine (NORVASC) 5 mg tablet Take 1 tablet by mouth two times a day. (Patient not taking: Reported on 07/31/2024) losartan (COZAAR) 100 mg tablet TAKE 1 TABLET BY MOUTH EVERY DAY (Patient not taking: Reported on 07/31/2024) FAMILY HISTORY Problem Relation Age of Onset Glaucoma Mother Social History Tobacco Use Smoking status: Never Smokeless tobacco: Never {ASSESSMENT/PLAN: 1. Open wound - ICD9: 879.8, ICD10: T14.8XXA - XR DIGIT GENERAL 3V FRONTAL/LAT/OBL RIGHT - TDAP VACCINE, AGE 7+ YR (ADACEL, BOOSTRIX) - DOXYCYCLINE MONOHYDRATE 100 MG TABLET Ortho consul for follow up. Patient educated about red flag symptoms. Patient will follow-up with signs and symptoms seem to be getting worse not better. Ortho consult was placed for further eval. John Anderson APRN.SENIOR TELECOMMUNICATIONS TECHNICIAN MDM Procedures [facility] 09-02-2024 History of Present illness Narrative Images from the original note were not included. [facility] Subjective Conner Kong is a 59 year old male. Patient presents with: Laceration: Laceration right index finger-happened last night Patient came in with complaints of laceration to right index finger. Patient says he was getting a chunk of grass unstuck from the lower and the mower blade clipped him. Patient denies any loss of feeling or range of motion. The history is provided by the patient. No cotton ginner was used. Laceration Review of Systems Constitutional: Negative. HENT: Negative. Objective BP 132/82 Pulse 80 Temp 36.3 C (97.4 F) (Tympanic) Resp 16 Wt 107 kg (235 lb 14.3 oz) SpO2 96% Physical Exam Constitutional: Appearance: Normal appearance. Pulmonary: Effort: Pulmonary effort is normal. Musculoskeletal: Hands: Comments: Patient does have what appears to be avulsion laceration in the area marked above. Extension and flexion are within normal limits. Circulation is intact sensation is intact no active bleeding at this time. Neurological: Mental Status: He is alert. PAST MEDICAL HISTORY Diagnosis Date Diabetes mellitus (HCC) Essential hypertension No past surgical history on file. ALLERGIES Penicillins MEDICATIONS losartan (COZAAR) 100 mg tablet Take 1 tablet by mouth daily metFORMIN ER (GLUCOPHAGE XR) 500 mg 24 hr tablet Take 1 tablet by mouth two times a day. amLODIPine (NORVASC) 5 mg tablet TAKE 1 TABLET BY MOUTH EVERY DAY losartan (COZAAR) 100 mg tablet Take 1 tablet by mouth daily (Patient not taking: Reported on 07/31/2024) metFORMIN ER (GLUCOPHAGE XR) 500 mg 24 hr tablet Take 1(one) tablet by mouth two times a day. (Patient not taking: Reported on 07/31/2024) amLODIPine (NORVASC) 5 mg tablet Take1 (one) tablet by mouth twice daily (Patient not taking: Reported on 07/31/2024) metFORMIN ER (GLUCOPHAGE XR) 500 mg 24 hr tablet Take 1 (one) tablet by mouth twice daily (Patient not taking: Reported on 07/31/2024) amLODIPine (NORVASC) 5 mg tablet Take 1 tablet by mouth twice daily (Patient not taking: Reported on 07/31/2024) lancets ([employer] PLUS LANCET) 30 gauge Use as directed to test blood sugar twice daily amLODIPine (NORVASC) 5 mg tablet Take 1 tablet by mouth two times a day. (Patient not taking: Reported on 07/31/2024) losartan (COZAAR) 100 mg tablet TAKE 1 TABLET BY MOUTH EVERY DAY (Patient not taking: Reported on 07/31/2024) FAMILY HISTORY Problem Relation Age of Onset Glaucoma Mother Social History Tobacco Use Smoking status: Never Smokeless tobacco: Never {ASSESSMENT/PLAN: 1. Open wound - ICD9: 879.8, ICD10: T14.8XXA - XR DIGIT GENERAL 3V FRONTAL/LAT/OBL RIGHT - TDAP VACCINE, AGE 7+ YR (ADACEL, BOOSTRIX) - DOXYCYCLINE MONOHYDRATE 100 MG TABLET Ortho consul for follow up. Patient educated about red flag symptoms. Patient will follow-up with signs and symptoms seem to be getting worse not better. Ortho consult was placed for further eval. John Anderson APRN.ANNA MDM Procedures documented in this encounter [facility] 07-31-2024 Note HNO ID: [id number] Author: CLARK KUHN OD Service: ? Author Type: PIZZA BAKER Type: Progress Notes Filed: 07/31/2024 16:18 Note Text: 1. Type 2 diabetes mellitus without retinopathy (HCC) (Primary) Risk of diabetic changes and vision loss can be minimized by tight control of blood sugar, blood pressure, and cholesterol levels. Educated patient to continue care with primary care doctor and/or pegger to maintain optimum levels as they are important to avoid ocular complications. Encouraged patient to call the office immediately with any changes to vision or visual concerns. Advised to not wait until the next scheduled exam. 2. Myopia, bilateral 3. Regular astigmatism of both eyes 4. Presbyopia Good vision, fit, and comfort in current contact lenses. Finalized and printed new spec and clrx. Educated pt on proper wear and care of contact lenses and to discontinue lens wear and follow-up with any redness/pain/decreased vision. Follow-up in 1 year for Ramírez paigepriscilla Clark Kuhn, OD July 31, 2024 4:17 PM [facility] 07-31-2024 History of Present illness Narrative 1. Type 2 diabetes mellitus without retinopathy (HCC) (Primary) Risk of diabetic changes and vision loss can be minimized by tight control of blood sugar, blood pressure, and cholesterol levels. Educated patient to continue care with primary care doctor and/or pegger to maintain optimum levels as they are important to avoid ocular complications. Encouraged patient to call the office immediately with any changes to vision or visual concerns. Advised to not wait until the next scheduled exam. 2. Myopia, bilateral 3. Regular astigmatism of both eyes 4. Presbyopia Good vision, fit, and comfort in current contact lenses. Finalized and printed new spec and clrx. Educated pt on proper wear and care of contact lenses and to discontinue lens wear and follow-up with any redness/pain/decreased vision. Follow-up in 1 year for Ramírez noemi Kuhn, OD July 31, 2024 4:17 PM documented in this encounter [facility] 07-17-2024 Note Formatting of this n ote might be different from the original. Losartan Metformin Amlodipine Y 12/12/23 wt 238lbs ht 69in hvf Goal 218 [facility] 07-17-2024 Miscellaneous Notes Losartan Metformin Amlodipine Y 12/12/23 wt 238lbs ht 69in hvf Goal 218 documented in this encounter [facility] Evaluation note Diagnosis Type 2 diabetes mellitus without retinopathy (HCC)- Primary Type II or unspecified type diabetes mellitus without mention of complication, not stated as uncontrolled Myopia, bilateral Myopia Regular astigmatism of both eyes Regular astigmatism Presbyopia [facility] Open wound- Primary Open wound(s) (multiple) of unspecified site(s), without mention of complication Open wound Open wound(s) (multiple) of unspecified site(s), without mention of complication [facility] Diagnosis Acute pain of right knee- Primary Acute pain of right knee [facility] Diagnosis Acute pain of right knee [facility] Diagnosis Effusion of right knee joint- Primary Effusion of lower leg joint Laceration without foreign body of right index finger with damage to nail, initial encounter Sprain of unspecified site of right knee, initial encounter [facility] Diagnosis Derangement of medial meniscus of right knee- Primary [facility] Diagnosis Derangement of medial meniscus of right knee [facility] Diagnosis Diabetic polyneuropathy associated with type 2 diabetes mellitus (HCC)- Primary Hallux rigidus of left foot Hallux rigidus Hallux rigidus of right foot Hallux rigidus [facility] Diagnosis Well adult exam- Primary Routine general medical examination at a health care facility Derangement of medial meniscus of right knee Type 2 diabetes mellitus without complication, without long-term current use of insulin (HCC) Hypertension, essential Unspecified essential hypertension Dyslipidemia Other and unspecified hyperlipidemia Screening for prostate cancer Special screening for malignant neoplasm of prostate Nut allergy Allergy to other foods [facility] Diagnosis Hypertension, essential- Primary Unspecified essential hypertension [facility] Diagnosis Hypertension, essential Unspecified essential hypertension [facility] Diagnosis Upper limb injury, right, initial encounter- Primary Contusion of right elbow, initial encounter Upper limb injury, right, initial encounter [facility] Upper limb injury, right, initial encounter documented in this encounter [facility] for visit Narrative* Diagnostic Procedure Only (Urgent) - Closed Specialty Diagnoses / Procedures Referred By Contac t Referred To Contact XR IMAGING Diagnoses Acute pain of right knee Procedures XR KNEE INJURY 4V AP/LAT/OBLS RIGHT RADIOLOGIC EXAM KNEE COMPLETE 4/MORE VIEWS Harini Mariano, BRANCH MAKER.SENIOR TELECOMMUNICATIONS TECHNICIAN [address] [place] [address] Phone: tel: fax: [place] [phone] Referral ID Status Reason Start Date Expiration Date V isits Requested Visits Authorized [id number] Closed Auto-Generate d Referral 09/07/2024 10/07/2025 1 1 [facility] for visit Narrative* MRI/CT (Routine) - Closed Specialty Diagnoses / Procedures Referred By Contac t Referred To Contact MR IMAGING Diagnoses Derangement of medial meniscus of right knee Procedures MRI KNEE WO IVCON RIGHT MRI ANY JT LOWER EXTREM W/O CONTRAST MATRL Jesse Torres, V, DO [address] [place] [address] Phone: tel: fax: [facility] [address] [place] [address] Referral ID Status Reason Start Date Expiration Date V isits Requested Visits Authorized [id number] Closed Auto-Generate d Referral 09/18/2024 01/01/2025 1 1 [facility] for visit Narrative* Diagnostic Procedure Only (Urgent) - Closed Specialty Diagnoses / Procedures Referred By Contac t Referred To Contact XR IMAGING Diagnoses Upper limb injury, right, initial encounter Procedures XR ELBOW SPECIAL VIEWS AP/LAT/OTHER RIGHT RADEX ELBOW COMPLETE MINIMUM 3 VIEWS Jenna Leonard, COLLEEN.SENIOR TELECOMMUNICATIONS TECHNICIAN [address] [place] [address] Phone: tel: fax: [place] [phone] Referral ID Status Reason Start Date Expiration Date V isits Requested Visits Authorized [id number] Closed Auto-Generate d Referral 12/20/2024 01/19/2026 1 1 [facility] Summary Purpose Family History No Family History Records FoundNo Family History Records FoundNo Family History Records Found Advance Directives No Advanced Directives Records FoundNo Advanced Directives Records FoundNo Advanced Directives Records Found Additional Source Comments (unrecognized sect ion and content) No Status Records FoundNo Status Records FoundNo Status Records Found INFORMATION SOURCE (unrecogn ized section and content) DATE CREATED AUTHOR 07/03/2019 [facility] DATE CREATED AUTHOR AUTHOR'S ORGANIZ ATION 01/04/[address] [facility] DATE CREATED AUTHOR AUTHOR'S ORGANIZ ATION 12/21/2024 [facility] Source Comments (unrecognize d section and content) In the event this informatio n is protected by the Federal Confidentiality of Alcohol and Drug Abuse Patient Records regulations: The Federal rules restrict any use of the information to criminally investigate or prosecute any alcohol or drug abuse patient.[facility] the event this information is protected by the Federal Confidentiality of Alcohol and Drug Abuse Patient Records regulations: The Federal rules restrict any use of the information to criminally investigate or prosecute any alcohol or drug abuse patient.[facility] the event this information is protected by the Federal Confidentiality of Alcohol and Drug Abuse Patient Records regulations: The Federal rules restrict any use of the information to criminally investigate or prosecute any alcohol or drug abuse patient.[facility] the event this information is protected by the Federal Confidentiality of Alcohol and Drug Abuse Patient Records regulations: The Federal rules restrict any use of the information to criminally investigate or prosecute any alcohol or drug abuse patient.[facility] the event this information is protected by the Federal Confidentiality of Alcohol and Drug Abuse Patient Records regulations: The Federal rules restrict any use of the information to criminally investigate or prosecute any alcohol or drug abuse patient.[facility] the event this information is protected by the Federal Confidentiality of Alcohol and Drug Abuse Patient Records regulations: The Federal rules restrict any use of the information to criminally investigate or prosecute any alcohol or drug abuse patient.[facility] the event this information is protected by the Federal Confidentiality of Alcohol and Drug Abuse Patient Records regulations: The Federal rules restrict any use of the information to criminally investigate or prosecute any alcohol or drug abuse patient.[facility] the event this information is protected by the Federal Confidentiality of Alcohol and Drug Abuse Patient Records regulations: The Federal rules restrict any use of the information to criminally investigate or prosecute any alcohol or drug abuse patient.[facility] the event this information is protected by the Federal Confidentiality of Alcohol and Drug Abuse Patient Records regulations: The Federal rules restrict any use of the information to criminally investigate or prosecute any alcohol or drug abuse patient.[facility] the event this information is protected by the Federal Confidentiality of Alcohol and Drug Abuse Patient Records regulations: The Federal rules restrict any use of the information to criminally investigate or prosecute any alcohol or drug abuse patient.[facility] the event this information is protected by the Federal Confidentiality of Alcohol and Drug Abuse Patient Records regulations: The Federal rules restrict any use of the information to criminally investigate or prosecute any alcohol or drug abuse patient.[facility] the event this information is protected by the Federal Confidentiality of Alcohol and Drug Abuse Patient Records regulations: The Federal rules restrict any use of the information to criminally investigate or prosecute any alcohol or drug abuse patient.[facility] the event this information is protected by the Federal Confidentiality of Alcohol and Drug Abuse Patient Records regulations: The Federal rules restrict any use of the information to criminally investigate or prosecute any alcohol or drug abuse patient.[facility] the event this information is protected by the Federal Confidentiality of Alcohol and Drug Abuse Patient Records regulations: The Federal rules restrict any use of the information to criminally investigate or prosecute any alcohol or drug abuse patient.[facility] the event this information is protected by the Federal Confidentiality of Alcohol and Drug Abuse Patient Records regulations: The Federal rules restrict any use of the information to criminally investigate or prosecute any alcohol or drug abuse patient.[facility] Hospital[facility] the event this information is protected by the Federal Confidentiality of Alcohol and Drug Abuse Patient Records regulations: The Federal rules restrict any use of the information to criminally investigate or prosecute any alcohol or drug abuse patient.[facility] the event this information is protected by the Federal Confidentiality of Alcohol and Drug Abuse Patient Records regulations: The Federal rules restrict any use of the information to criminally investigate or prosecute any alcohol or drug abuse patient.[facility] the event this information is protected by the Federal Confidentiality of Alcohol and Drug Abuse Patient Records regulations: The Federal rules restrict any use of the information to criminally investigate or prosecute any alcohol or drug abuse patient.[facility] Hospital[facility] the event this information is protected by the Federal Confidentiality of Alcohol and Drug Abuse Patient Records regulations: The Federal rules restrict any use of the information to criminally investigate or prosecute any alcohol or drug abuse patient.[facility] Hospital[facility] the event this information is protected by the Federal Confidentiality of Alcohol and Drug Abuse Patient Records regulations: The Federal rules restrict any use of the information to criminally investigate or prosecute any alcohol or drug abuse patient.[facility] the event this information is protected by the Federal Confidentiality of Alcohol and Drug Abuse Patient Records regulations: The Federal rules restrict any use of the information to criminally investigate or prosecute any alcohol or drug abuse patient.[facility]In the event this information is protected by the Federal Confidentiality of Alcohol and Drug Abuse Patient Records regulations: The Federal rules restrict any use of the information to criminally investigate or prosecute any alcohol or drug abuse patient.[facility] the event this information is protected by the Federal Confidentiality of Alcohol and Drug Abuse Patient Records regulations: The Federal rules restrict any use of the information to criminally investigate or prosecute any alcohol or drug abuse patient.[facility] Reason for Visit (unrecogniz ed section and content) Reason Onset Date Comments Lvn - Other 07/16/2024 Reason Onset Date Comments Care Coordination 07/17/2024 Reason Comments Yearly Exam Contact lens evaluation Diabetic Eye Exam Reason Comments Laceration Laceration right ind ex finger-happened last night Reason Comments Right Knee Pain Reason Comments Right knee pain and right index finger l aceration Reason Onset Date Comments Refill Request 09/14/2024 Reason Comments Patient Update Reason Comments Right Knee Pain Reason Comments New Diabetic Foot Care Reason Comments Establish Care Reason Onset Date Comments Results 11/09/2024 Reason Comments Medication Problem Reason Onset Date Comments Lvn - Other 11/11/2024 Reason Onset Date Comments Refill Request 11/25/2024 Reason Onset Date Comments Care Coordination 12/09/2024 Reason Comments Trauma Right elbow shooting up arm Care Teams (unrecognized sec tion and content) Electrical Maintenance Engineer Relationship Specialty Start Date End Date Maria Elena Lucero RN [place] P Lvn 07/16/24 Electrical Maintenance Engineer Relationship Specialty Start Date End Date Maria Elena Lucero RN [place] EHP Lvn 07/16/24 Electrical Maintenance Engineer Relationship Specialty Start Date End Date Maria Elena Lucero RN [place] EHP Lvn 07/16/24 Electrical Maintenance Engineer Relationship Specialty Start Date End Date Maria Elena Lucero RN [place] EHP Lvn 07/16/24 Electrical Maintenance Engineer Relationship Specialty Start Date End Date Maria Elena Lucero RN [place] EHP Lvn 07/16/24 Electrical Maintenance Engineer Relationship Specialty Start Date End Date Maria Elena Lucero RN [place] EHP Lvn 07/16/24 Electrical Maintenance Engineer Relationship Specialty Start Date End Date Maria Elena Lucero RN [place] P Lvn 07/16/24 Electrical Maintenance Engineer Relationship Specialty Start Date End Date Maria Elena Lucero, RN [place] EHP Lvn 07/16/24 Electrical Maintenance Engineer Relationship Specialty Start Date End Date Maria Elena Lucero, RN [place] EHP Lvn 07/16/24 Electrical Maintenance Engineer Relationship Specialty Start Date End Date Maria Elena Luceor, RN [place] EHP Lvn 07/16/24 Electrical Maintenance Engineer Relationship Specialty Start Date End Date Maria Elena Lucero, RN [place] EHP Lvn 07/16/24 Electrical Maintenance Engineer Relationship Specialty Start Date End Date Maria Elena Lucero, RN [place] EHP Lvn 07/16/24 Electrical Maintenance Engineer Relationship Specialty Start Date End Date Maria Elena Lucero, RN [place] EHP Lvn 07/16/24 Electrical Maintenance Engineer Relationship Specialty Start Date End Date Maria Elena Lucero, RN [place] EHP Lvn 07/16/24 Electrical Maintenance Engineer Relationship Specialty Start Date End Date Dami Good, DO [address] [facility] [address] PCP - General Family Medicine 11/10/24 Maria Elena Lucero RN [place] EHP Lvn 07/16/24 Electrical Maintenance Engineer Relationship Specialty Start Date End Date Dami Good, [address] [facility] [place] [address] PCP - General Family Medicine 11/10/24 Maria Elena Lucero RN [place] EHP Lvn 07/16/24 Electrical Maintenance Engineer Relationship Specialty Start Date End Date Dami Good, [address] [facility] [address] PCP - General Family Medicine 11/10/24 Maria Elena Lucero RN [place] E[facility] Lvn 07/16/24 Electrical Maintenance Engineer Relationship Specialty Start Date End Date Dami Good, [address] [facility] [address] PCP - General Family Medicine 11/10/24 Maria Elena Lucero, RN [place] EHP Lvn 07/16/24 Lila Magallanes, BRANCH MAKER.SENIOR TELECOMMUNICATIONS TECHNICIAN [address] [facility] [place] [address] [facility] 11/17/24 Meg Scherer, BRANCH MAKER.SENIOR TELECOMMUNICATIONS TECHNICIAN [address] [place] [address] [facility] 11/17/24 Electrical Maintenance Engineer Relationship Specialty Start Date End Date Dami Good DO [address] [place] [address] PCP - General Family Medicine 11/10/24 Maria Elena Lucero RN [facility] Lvn 07/16/24 Lila Magallanes, BRANCH MAKER.SENIOR TELECOMMUNICATIONS TECHNICIAN [address] [place] [address] [facility] 11/17/24 Meg Scherer, BRANCH MAKER.SENIOR TELECOMMUNICATIONS TECHNICIAN [address] [place] [address] [facility] 11/17/24 Electrical Maintenance Engineer Relationship Specialty Start Date End Date Dami Good DO [address] [place] [address] PCP - General Family Medicine 11/10/24 Maria Elena Lucero RN [facility] Lvn 07/16/24 Lila Magallanes, BRANCH MAKER.SENIOR TELECOMMUNICATIONS TECHNICIAN [address] [facility] [place] [address] [facility] Medicine 11/17/24 Meg Scherer, BRANCH MAKER.SENIOR TELECOMMUNICATIONS TECHNICIAN [address] [place] [address] [facility] 11/17/24 Electrical Maintenance Engineer Relationship Specialty Start Date End Date Dami Good DO [address] [place], [place] [address] PCP - General Family Medicine 11/10/24 [facility] 07/16/24 Lila Magallanes APRN.SENIOR TELECOMMUNICATIONS TECHNICIAN [address] [place], [place] [id number] [facility] 11/17/24 Meg Scherer, COLLEEN.SENIOR TELECOMMUNICATIONS TECHNICIAN [address] [place] [address] [facility] 11/17/24 FOR RECORDS PERTAINING TO PATIENTS WHO ARE OR HAVE BEEN ENROLLED IN A CHEMICAL DEPENDENCY/SUBSTANCEABUSE PROGRAM, SOME INFORMATION MAY BE OMITTED. This clinical summary was aggregated from multiple sources. Caution should be exercised in using it in the provision of clinical care. This summary normalizes information from multiple sources, and as a consequence, information in this document may materially change the coding, format and clinical context of patient data. In addition, data may be omitted in some cases. CLINICAL DECISIONS SHOULD BE BASED ON THE PRIMARY CLINICAL RECORDS. [facility] [employer] provides no warranty or guarantee of the accuracy or completeness of information in this document.
--- OUTSIDE RECORDS SUMMARY | 2024-12-21 22:17 | XMS RPT_ITS | CCD ---
Author Organization [facility] Care Team Providers Care Data Processing Systems Project Planner Name Role Phone HILLS, KAYLYN Admitting Unavailable HILLS, KAYLYN Primary Care Unavailable HILLS, KAYLYN Consulting Unavailable HILLS, KAYLYN Attending Unavailable PROVIDER, UNKNOWN Consulting Unavailable HILLS, KAYLYN Primary Care Unavailable HILLS, KAYLYN Consulting Unavailable HILLS, KAYLYN Attending Unavailable HILLS, KAYLYN Admitting Unavailable PROVIDER, UNKNOWN Consulting Unavailable Jazmine RN, Maria Elena Wallis Unavailable Unavailabl e Dami Good DO Primary Care Provider [facility] PROFESSOR OF GEOLOGY.Lila CASTILLO Unavailable [facility] PROFESSOR OF GEOLOGY.Meg CASTILLO Unavailable DAMI GOOD Primary Care Unavailable [...] Reaction(s) Facility (1 source) Penicillin Drug Allergy [facility] Repository (20 sources) Penicillins; Translations: [PENICILLINS] Drug Allergy 07-31-2024 Anaphylaxis [facility] (8 sources) Lisinopril; Translations: [LISINOPRIL] Drug Allergy 11-10-2024 Intolerance [facility] Medications Current Medications Medication Drug Class(es) Dates [...] Test Name Value Interpretation Reference Range Facility [facility] 12-20-2024 CNOV Office Visit (WOUCA) CONNER KONG ([id number]) 1965 M Date Time Provider Department 12/20/24 2:45 PM JENNA LEONARD During your visit today, we recorded the following information about you: Temperature Pulse Respiration Blood pressure 97.2 degrees 80/minute 20/minute 148/86 Weight 102.6 kg Jenna Leonard APRN.TRAFFIC SIGNAL TECHNICIAN 12/20/2024 3:44 PM Signed URGENT CARE [...] two times a day with meals. lancets ([employer] DELRuck.us PLUS LANCET) 30 gauge Use as directed [...] patient put in sling. and Recording using [employer] software for draft documentation of the visit was discussed with the patient/authorized education courses sales representative; all questions welcomed and answered. Patient/authorized education courses sales representative agreed to proceed MDM patient well-appearing [...] [S50.01XA] Order(s):XR ELBOW SPECIAL VIEWS AP/LAT/OTHER RIGHT [[id number]] Order #: [id number] FUTURE CONSULT TO ORTHOPAEDICS [9095] Order #: [id number]: 1 FUTURE Prescriptions as of 12/20/2024 - amLODIPine (NORVASC) 5 mg tablet Take 1 tablet by mouth two times a day. - losartan (COZAAR) 100 mg tablet Take 1 tablet by mouth once daily. - metFORMIN (GLUCOPHAGE) 500 mg tablet Take 1 tablet by mouth two times a day with meals. - lancets ([employer] DELICA PLUS LANCET) 30 gauge Use as directed to test blood sugar twice daily Problem List As Of Date 12/20/2024 Noted Resolved Type 2 diabetes melli (more content not included)... [facility] XR ELBOW 3V AP/LAT/OTHER RTo [...] lung process. IMPRESSION: No acute osseous abnormality Operating Room Technician: PSCB Transcribe Date/Time: Dec 20 2024 4:06P Dictated by : SARAH SANDOVAL MD This examination was interpreted and the report reviewed and electronically signed by: SARAH SANDOVAL MD on Dec 20 2024 4:07PM EST [id number] [facility] XR Elbow - right AP and Late ral and obliqueon 12-20-2024 IMPRESSION: No acute osseous abnormality Operating Room Technician: PSCB Transcribe Date/Time: Dec 20 2024 4:06P [...] left lung process. DIVISION OF RADIOLOGY Provider, [facility] - 12/20/2024 * * *Final Report* * [...] process. IMPRESSION IMPRESSION: No acute osseous abnormality Operating Room Technician: MONSERRAT Transcribe Date/Time: Dec 20 2024 4:06P Dictated by : SARAH SANDOVAL MD This examination was interpreted and the report reviewed and electronically signed by: SARAH SANDOVAL MD on Dec 20 2024 4:07PM [facility] Radiology Study observation (narrative) [facility] XR Elbow - right AP and Late ral and obliqueOrdered By: Ccf Provider on 12-20-2024 [facility] 11-10-2024 CNPN Telephone (FAMPWS) CONNER KONG ([id number]) 1965 M Date Time Provider Department 11/10/24 DAMI GOOD During your visit today, we recorded the following information about you: Germania White RN 11/10/2024 3:35 PM Signed Spouse (Shae) calls to report that [facility] will not allow patient to refill [...] Status:Closed by MARA WHITE on 11/11/24 [facility] ALBUMIN/CREATININE RATIO, UR INEon 11-07-2024 Albumin DL <= 20 mg/L (U) [Mass/Vol] mg/dL [facility] 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: Order Comment: Speci men Type: URINE SPECIMENOrdering Facility: [facility] Address: [address] [place] [address] Performed By: #### U ACR ####[facility] LABCLIA [id number] [place] [address] [place] Albumin/Creatinine (U) [Mass ratio] <4 Normal <30 [facility] 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: Order Comment: Speci men Type: URINE SPECIMENOrdering Facility: [facility] Address: [address] [place] [address] Result Comment: Adul t Male and Female Nephrotic Criteria: <30 mg/g is considered normal to mildly increased 30-300 mg/g is considered moderately increased >300 mg/g is considered severely increased KDIGO. (2013). KDIGO 2012 Clinical Practice Guideline for the Evaluation and Management of Chronic Kidney Disease. Official Journal of the International Society of Nephrology, 3(1), 1-150. Performed By: #### U ACR ####[facility] LABCLIA [id number] [place] [id number] [place] Creatinine (U) [Mass/Vol] 272.7 mg/dL Normal 20.0-300.0 [facility] 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: Order Comment: Speci men Type: URINE SPECIMENOrdering Facility: [facility] Address: [address] [place] [address] Performed By: #### U ACR ####[facility] LABCLIA [id number] [address] [place] [address] [place] CBC W Auto Differential pane l (Bld)on 11-07-2024 Basophils (Bld) [#/Vol] 0.05 10*3/uL Normal <0.11 [facility] 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: Order Comment: Speci men Type: BLOOD SPECIMENOrdering Facility: [facility] Address: [address] [place] [address] Performed By: #### 5 7021-8 ####[facility] LABCLIA [id number] [address], [facility] [place] Basophils/100 WBC (Bld) 0.9 % [facility] 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: Order Comment: Speci men Type: BLOOD SPECIMENOrdering Facility: [facility] Address: [address] [place] [address] Performed By: #### 5 7021-8 ####[facility] LABCLIA [id number] [address], [place] [address] [place] Differential cell count method Nom (Bld) Auto [facility] 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: Order Comment: Speci men Type: BLOOD SPECIMENOrdering Facility: [facility] Address: [address] [place] [address] Performed By: #### 5 7021-8 ####[facility] LABCLIA [id number] [address], [facility] [place] Eosinophils (Bld) [#/Vol] 0.17 10*3/uL Normal <0.46 [facility] 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: Order Comment: Speci men Type: BLOOD SPECIMENOrdering Facility: [facility] Address: [address] [place] [address] Performed By: #### 5 7021-8 ####[facility] LABCLIA [id number] [address], [facility] [place] Eosinophils/100 WBC (Bld) 3.2 % [facility] 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: Order Comment: Speci men Type: BLOOD SPECIMENOrdering Facility: [facility] Address: [address] [place] [address] Performed By: #### 5 7021-8 ####[facility] LABIA [id number] [place] [address] [place] Erythrocyte distribution width (RBC) [Ratio] 13.7 % Normal 11.5-15.0 [facility] 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: Order Comment: Speci men Type: BLOOD SPECIMENOrdering Facility: [facility] Address: [address] [place] [address] Performed By: #### 5 7021-8 ####[facility] LABIA [id number] [place] [address] [place] Hematocrit (Bld) [Volume fraction] 45.0 % Normal 39.0-51.0 [facility] 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: Order Comment: Speci men Type: BLOOD SPECIMENOrdering Facility: [facility] Address: [address] [place] [address] Performed By: #### 5 7021-8 ####[facility] LABIA [id number] [place] [address] [place] Hemoglobin (Bld) [Mass/Vol] 14.5 g/dL Normal 13.0-17.0 [facility] 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: Order Comment: Speci men Type: BLOOD SPECIMENOrdering Facility: [facility] Address: [address] [place] [address] Performed By: #### 5 7021-8 ####[facility] LABIA [id number] [place] [address] [place] Immature granulocytes (Bld) [#/Vol] 0.05 10*3/uL Normal <0.10 [facility] 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: Order Comment: Speci men Type: BLOOD SPECIMENOrdering Facility: [facility] Address: [address] [place] [address] Performed By: #### 5 7021-8 ####[facility] LABCLIA [id number] [place] [address] [place] Immature granulocytes/100 WBC (Bld) 0.9 % [facility] 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: Order Comment: Speci men Type: BLOOD SPECIMENOrdering Facility: [facility] Address: [address] [place] [address] Performed By: #### 5 7021-8 ####[facility] LABIA [id number] [place] [address] [place] Lymphocytes (Bld) [#/Vol] 1.46 10*3/uL Normal 1.00-4.00 [facility] 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: Order Comment: Speci men Type: BLOOD SPECIMENOrdering Facility: [facility] Address: [address] [place] [address] Performed By: #### 5 7021-8 ####[facility] LABIA [id number] [place] [address] [place] Lymphocytes/100 WBC (Bld) 27.2 % [facility] 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: Order Comment: Speci men Type: BLOOD SPECIMENOrdering Facility: [facility] Address: [address] [place] [address] Performed By: #### 5 7021-8 ####[facility] LABIA [id number] [place] [address] [place] MCH (RBC) [Entitic mass] 27.8 pg Normal 26.0-34.0 [facility] 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: Order Comment: Speci men Type: BLOOD SPECIMENOrdering Facility: [facility] Address: [address] [place] [address] Performed By: #### 5 7021-8 ####[facility] LABIA [id number] [place] [id number] [place] MCHC (RBC) [Mass/Vol] 32.2 g/dL Normal 30.5-36.0 [facility] 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: Order Comment: Speci men Type: BLOOD SPECIMENOrdering Facility: [facility] Address: [address] [place] [address] Performed By: #### 5 7021-8 ####[facility] LABCLIA [id number] [facility] [place] [address] [place] MCV (RBC) [Entitic vol] 86.2 fL Normal 80.0-100.0 [facility] 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: Order Comment: Speci men Type: BLOOD SPECIMENOrdering Facility: [facility] Address: [address] [place] [address] Performed By: #### 5 7021-8 ####[facility] LABCLIA [id number] [place] [address] [place] Monocytes (Bld) [#/Vol] 0.51 10*3/uL Normal <0.87 [facility] 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: Order Comment: Speci men Type: BLOOD SPECIMENOrdering Facility: [facility] Address: [address] [place] [address] Performed By: #### 5 7021-8 ####[facility] LABCLIA [id number] [place] [address] [place] Monocytes/100 WBC (Bld) 9.5 % [facility] 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: Order Comment: Speci men Type: BLOOD SPECIMENOrdering Facility: [facility] Address: [address] [place] [address] Performed By: #### 5 7021-8 ####[facility] LABCLIA [id number] [place] [address] [place] Neutrophils (Bld) [#/Vol] 3.13 10*3/uL Normal 1.45-7.50 [facility] 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: Order Comment: Speci men Type: BLOOD SPECIMENOrdering Facility: [facility] Address: [address] [place] [address] Performed By: #### 5 7021-8 ####[facility] LABCLIA [id number] [place] [address] [place] Neutrophils/100 WBC (Bld) 58.3 % [facility] 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: Order Comment: Speci men Type: BLOOD SPECIMENOrdering Facility: [facility] Address: [address] [place] [address] Performed By: #### 5 7021-8 ####[facility] LABCLIA [id number] [place] [address] [place] Nucleated RBC (Bld) [#/Vol] 10*3/uL Normal <0.01 [facility] 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: Order Comment: Speci men Type: BLOOD SPECIMENOrdering Facility: [facility] Address: [address] [place] [address] Performed By: #### 5 7021-8 ####[facility] LABIA [id number] [place] [address] [place] Nucleated RBC/100 WBC (Bld) [Ratio] 0.0 /100 WBC [facility] 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: Order Comment: Speci men Type: BLOOD SPECIMENOrdering Facility: [facility] Address: [address] [place] [address] Performed By: #### 5 7021-8 ####[facility] LABCLIA [id number] [place] [address] [place] Platelet mean volume (Bld) [Entitic vol] 9.7 fL Normal 9.0-12.7 [facility] 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: Order Comment: Speci men Type: BLOOD SPECIMENOrdering Facility: [facility] Address: [address] [place] [address] Performed By: #### 5 7021-8 ####[facility] LABCLIA [id number] [place] [address] [place] Platelets (Bld) [#/Vol] 197 10*3/uL Normal 150-400 [facility] 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: Order Comment: Speci men Type: BLOOD SPECIMENOrdering Facility: [facility] Address: [address] [place] [address] Performed By: #### 5 7021-8 ####[facility] LABIA [id number] [place] [address] [place] RBC (Bld) [#/Vol] 5.22 10*6/uL Normal 4.20-6.00 [facility] 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: Order Comment: Speci men Type: BLOOD SPECIMENOrdering Facility: [facility] Address: [address] [place] [address] Performed By: #### 5 7021-8 ####[facility] [id number] [place] [address] [place] WBC (Bld) [#/Vol] 5.37 10*3/uL Normal 3.70-11.00 [facility] 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: Order Comment: Speci men Type: BLOOD SPECIMENOrdering Facility: [facility] Address: [address] [place] [address] Performed By: #### 5 7021-8 ####[facility] [id number] [place] [address] [place] Cashew nut IgE Qnon 11-08-19 25 Cashew nut IgE Qn (S) <0.35 Normal <0.35 [facility] 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: Order Comment: Speci men Type: BLOOD SPECIMENOrdering Facility: [facility] Address: [address] [place] [address] Performed By: #### 7 613-3, 6206-7, 6718-1, 6273-7 ####[facility] LABIA [id number] [place] [address] [place] Cashew nut IgE Qn (S)on 10-12 Cashew nut IgE RAST class (S) Class 0 Normal Class 0 [facility] 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: Order Comment: Speci men Type: BLOOD SPECIMENOrdering Facility: [facility] Address: [address] [place] [address] Performed By: #### 7 613-3, 6206-7, 6718-1, 6273-7 ####[facility] LABCLIA [id number] [place] [id number] [place] [facility] Comprehensive metabolic 2000 panelon 11-07-2024 Albumin [Mass/Vol] 4.5 g/dL Normal 3.9-4.9 [facility] 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: Order Comment: Speci men Type: BLOOD SPECIMENOrdering Facility: [facility] Address: [address] [place] [address] Performed By: #### 3 016-3, 86895-9, 23173-1 ####[facility] LABCLIA [id number] [place] [address] [place] ALP [Catalytic activity/Vol] 58 U/L Normal 38-113 [facility] 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: Order Comment: Speci men Type: BLOOD SPECIMENOrdering Facility: [facility] Address: [address] [place] [address] Performed By: #### 3 016-3, 82602-9, 35214-0 ####[facility] LABCLIA [id number] [facility] [address], [facility] [place] ALT [Catalytic activity/Vol] 25 U/L Normal 10-54 [facility] 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: Order Comment: Speci men Type: BLOOD SPECIMENOrdering Facility: [facility] Address: [address] [place] [address] Performed By: #### 3 016-3, 03259-0, 59413-0 ####[facility] LABCLIA [id number] [facility] [address], [facility] [place] Anion gap [Moles/Vol] 12 mmol/L Normal 8-15 [facility] 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: Order Comment: Speci men Type: BLOOD SPECIMENOrdering Facility: [facility] Address: [address] [place] [address] Performed By: #### 3 016-3, , ####[facility] LABCLIA [id number] [facility] [address] [address] [place] AST [Catalytic activity/Vol] 25 U/L Normal 14-40 [facility] 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: Order Comment: Speci men Type: BLOOD SPECIMENOrdering Facility: [facility] Address: [address] [place] [address] Performed By: #### 3 016-3, , ####[facility] LABCLIA [id number] [place] [address] [place] Bilirubin [Mass/Vol] 0.6 mg/dL Normal 0.2-1.3 [facility] 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: Order Comment: Speci men Type: BLOOD SPECIMENOrdering Facility: [facility] Address: [address] [place] [address] Performed By: #### 3 016-3, , ####[facility] LABCLIA [id number] [address] [address] [place] Calcium [Mass/Vol] 9.6 mg/dL Normal 8.5-10.2 [facility] 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: Order Comment: Speci men Type: BLOOD SPECIMENOrdering Facility: [facility] Address: [address] [place] [address] Performed By: #### 3 016-3, 20901-0, ####[facility] LABCLIA [id number] [facility] [address] [place] [address] [place] Chloride [Moles/Vol] 103 mmol/L Normal 98-107 [facility] 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: Order Comment: Speci men Type: BLOOD SPECIMENOrdering Facility: [facility] Address: [address] [place] [address] Performed By: #### 3 016-3, 51737-3, ####[facility] [id number] [place] [address] [place] CO2 [Moles/Vol] 25 mmol/L Normal 22-30 [facility] 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: Order Comment: Speci men Type: BLOOD SPECIMENOrdering Facility: [facility] Address: [address] [place] [address] Performed By: #### 3 016-3, 27899-1, ####[facility] [id number] [place] [address] [place] Creatinine [Mass/Vol] 0.89 mg/dL Normal 0.73-1.22 [facility] 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: Order Comment: Speci men Type: BLOOD SPECIMENOrdering Facility: [facility] Address: [address] [place] [address] Performed By: #### 3 016-3, 97106-1, ####[facility] [id number] [address] [place] [facility] Creatinine and Glomerular filtration rate.predicted panel (S/P/Bld) 100 mL/min/1.73m??? Normal >=60 [facility] 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: Order Comment: Speci men Type: BLOOD SPECIMENOrdering Facility: [facility] Address: [address] [place] [address] Result Comment: Nena mated Glomerular Filtration Rate [...] actual GFR. Performed By: #### 3 016-3, 66700-6, 41575-7 ####[facility] LABCLIA [id number] [address] [address] [place] Glucose [Mass/Vol] 123 mg/dL High 74-99 [facility] 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: Order Comment: Speci men Type: BLOOD SPECIMENOrdering Facility: [facility] Address: [address] [place] [address] Result Comment: The [place] Diabetes Association (ADA) provides guidance for cutoff [...] Standards of Medical Care in Diabetes 2016, [place] [employer]. Diabetes Care. 2016.39(Suppl 1). Performed By: #### 3 016-3, 75809-5, 41671-0 ####[facility] LABIA [id number] [place] [id number] [place] Potassium [Moles/Vol] 4.7 mmol/L Normal 3.7-5.1 [facility] 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: Order Comment: Speci men Type: BLOOD SPECIMENOrdering Facility: [facility] Address: [address] [place] [address] Performed By: #### 3 016-3, 17883-1, 72865-1 ####[facility] LABIA [id number] [address] [address] [place] Protein [Mass/Vol] 6.7 g/dL Normal 6.3-8.0 [facility] 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: Order Comment: Speci men Type: BLOOD SPECIMENOrdering Facility: [facility] Address: [address] [place] [address] Performed By: #### 3 016-3, 69317-6, 19466-3 ####[facility] LABIA [id number] [address] [address] [place] Sodium [Moles/Vol] 140 mmol/L Normal 136-144 [facility] 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: Order Comment: Speci men Type: BLOOD SPECIMENOrdering Facility: [facility] Address: [address] [place] [address] Performed By: #### 3 016-3, 63571-9, 91042-2 ####[facility] LABIA [id number] [address] [address] [place] Urea nitrogen [Mass/Vol] 15 mg/dL Normal 9-24 [facility] 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: Order Comment: Speci men Type: BLOOD SPECIMENOrdering Facility: [facility] Address: [address] [place] [address] Performed By: #### 3 016-3, 10615-5, 49084-8 ####[facility] [id number] [address] [address] [place] HbA1c (Bld)on 11-07-2024 Average glucose Estimated from glycated hemoglobin (Bld) [Mass/Vol] 140 mg/dL Normal [facility] 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: Order Comment: Speci men Type: BLOOD SPECIMENOrdering Facility: [facility] Address: [address] [place] [address] Result Comment: eAG: (Estimated average glucose) is a calculated value from HgbA1c and is education courses sales representative of the average blood glucose level in the last 2-3 month period. Performed By: #### 5 5454-3 ####[facility] [id number] [place] [id number] [place] HbA1c (Bld) [Mass fraction] 6.5 % High 4.3-5.6 [facility] 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: Order Comment: Speci men Type: BLOOD SPECIMENOrdering Facility: [facility] Address: [address] [place] [address] Result Comment: Amer ican Diabetes Association guidelines indicate that patients with HgbA1c in the range 5.7-6.4% are at increased risk for development of diabetes, and intervention by lifestyle modification may be beneficial. HgbA1c greater or equal to 6.5% is considered diagnostic of diabetes. Performed By: #### 5 5454-3 ####[facility] LABCLIA [id number] [place] [address] [place] Lipid 1996 panelon 5 Cholesterol [Mass/Vol] 175 mg/dL Normal <200 [facility] 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: Order Comment: Speci men Type: BLOOD SPECIMENOrdering Facility: [facility] Address: [address] [place] [address] Result Comment: <200 mg/dL, Desirable 200-239 mg/dL, Borderline high >239 mg/dL, High Performed By: #### 3 016-3, 71610-3, 88617-4 ####[facility] LABCLIA [id number] [place] [id number] [place] Cholesterol in HDL [Mass/Vol] 48 mg/dL Normal >39 [facility] 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: Order Comment: Zeniai men Type: BLOOD SPECIMENOrdering Facility: [facility] Address: [address] [place] [address] Result Comment: 40-5 9 mg/dL, Acceptable >59 mg/dL, High: Negative risk factor for coronary heart disease <40 mg/dL, Low: Positive risk factor for coronary heart disease Performed By: #### 3 016-3, 01247-1, 23008-5 ####[facility] LABCLIA [id number] [place] [id number] [place] Cholesterol in LDL [Mass/Vol] 117 mg/dL High <100 [facility] 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: Order Comment: Speci men Type: BLOOD SPECIMENOrdering Facility: [facility] Address: [address] [place] [address] Result Comment: <100 mg/dL, Optimal 100-129 mg/dL, Near optimal/above optimal 130-159 mg/dL, Borderline high 160-189 mg/dL, High >189 mg/dL, Very high Secondary prevention optimal LDL Cholesterol levels are recommended to be <70 mg/dL LDL cholesterol is calculated using the Mralow-NIH equation. Performed By: #### 3 016-3, 75982-3, 74906-9 ####[facility] LABCLIA [id number] [address] [address] [place] Cholesterol in LDL/Cholesterol in HDL [Mass ratio] 2.44 {ratio} Normal <2.54 [facility] 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: Order Comment: Speci men Type: BLOOD SPECIMENOrdering Facility: [facility] Address: [address] [place] [address] Result Comment: Kyle hoffmance: 1. National Cholesterol Education Program ATP III Guideline At-A-Glance Quick Desk Reference: National Heart, Lung, and Blood [place]. National Institutes of Health. 2001: NIH Publication No. 01-3305. 2. An International Atherosclerosis Society position paper: global recommendations for the management of dyslipidemia: executive summary, Atherosclerosis. 2014: 232(2):410-413. Performed By: #### 3 016-3, , ####[facility] LABIA [id number] [address] [address] [place] Cholesterol in VLDL [Mass/Vol] 9 mg/dL Normal <30 [facility] 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: Order Comment: Speci men Type: BLOOD SPECIMENOrdering Facility: [facility] Address: [address] [place] [address] Performed By: #### 3 016-3, 99288-9, ####[facility] LABCLIA [id number] [address] [address] [place] Cholesterol non HDL [Mass/Vol] 127 mg/dL Normal <130 [facility] 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: Order Comment: Speci men Type: BLOOD SPECIMENOrdering Facility: [facility] Address: [address] [place] [address] Result Comment: <130 mg/dL, Optimal 130-159 mg/dL, Near optimal/above optimal 160-189 mg/dL, Borderline high 190-219 mg/dL, High >219 mg/dL, Very high Secondary prevention optimal non HDL Cholesterol levels are recommended to be <100 mg/dL Performed By: #### 3 016-3, 04295-3, 74529-6 ####[facility] LABCLIA [id number] [facility] [address], [place] [address] [place] [facility] Cholesterol.total/C holesterol in HDL [Mass ratio] 3.65 {ratio} Normal <5.10 [facility] 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: Order Comment: Speci men Type: BLOOD SPECIMENOrdering Facility: [facility] Address: [address] [place] [address] Performed By: #### 3 016-3, 97626-2, 18059-1 ####[facility] LABCLIA [id number] [address], [address] STATES OF [facility] FASTING TIME 12 hrs Normal [facility] 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: Order Comment: Speci men Type: BLOOD SPECIMENOrdering Facility: [facility] Address: [address] [place] [address] Performed By: #### 3 016-3, 27345-5, 13976-5 ####[facility] LABCLIA [id number] [facility] [address], [facility] [place] Triglyceride [Mass/Vol] 51 mg/dL Normal <150 [facility] 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: Order Comment: Speci men Type: BLOOD SPECIMENOrdering Facility: [facility] Address: [facility] [place] [address] Result Comment: <150 mg/dL, Normal 150-199 mg/dL, Borderline high 200-499 mg/dL, High >499 mg/dL, Very high Performed By: #### 3 016-3, 29850-4, 59459-3 ####[facility] LABCLIA [id number] [facility] [address] [place] [address] [place] PSA/PROSTATE SPECIFIC ANTIGE N SCREENINGon 11-07-2024 Prostate specific Ag [Mass/Vol] 0.87 ng/mL Normal <2.60 [facility] 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: Order Comment: Speci men Type: BLOOD SPECIMENOrdering Facility: [facility] Address: [address] [place] [address] Result Comment: Tota l PSA test methodology used is the Electrochemiluminescence Immunoassay by [employer]. Total PSA values by differing methodologies cannot be interchanged. Performed By: #### P SAS1 ####[facility] [id number] [place] [address] [place] Peanut IgE Qnon 11-07-2024 Peanut IgE Qn (S) <0.10 Normal <0.10 [facility] 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: Order Comment: Speci men Type: BLOOD SPECIMENOrdering Facility: [facility] Address: [address] [place] [address] Performed By: #### 7 613-3, 6206-7, 6718-1, 6273-7 ####[facility] [id number] [place] [address] [place] Peanut IgE Qn (S)on 11-08-19 Peanut IgE RAST class (S) Class 0 Normal Class 0 [facility] 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: Order Comment: Speci men Type: BLOOD SPECIMENOrdering Facility: [facility] Address: [address] [place] [address] Performed By: #### 7 613-3, 6206-7, 6718-1, 6273-7 ####[facility] [id number] [place] [id number] [place] Pistachio IgE Qnon Pistachio IgE Qn (S) <0.35 Normal <0.35 [facility] 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: Order Comment: Speci men Type: BLOOD SPECIMENOrdering Facility: [facility] Address: [address] [place] [address] Performed By: #### 7 613-3, 6206-7, 6718-1, 6273-7 ####[facility] LABCLIA [id number] [place] [address] [place] Pistachio IgE Qn (S)on 11-07 [place] IgE RAST class (S) Class 0 Normal Class 0 [facility] 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: Order Comment: Speci men Type: BLOOD SPECIMENOrdering Facility: [facility] Address: [address] [place] [address] Performed By: #### 7 613-3, 6206-7, 6718-1, 6273-7 ####[facility] LABIA [id number] [place] [address] [place] TSH SerPl-aCncon 11-07-2024 TSH Qn 1.180 m[IU]/L Normal 0.270-4.200 [facility] 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: Order Comment: Speci men Type: BLOOD SPECIMENOrdering Facility: [facility] Address: [address] [place] [address] Performed By: #### 3 016-3, 45260-9, 03890-2 ####[facility] LABIA [id number] [place] [address] [place] IgE Qnon 11-07-2024 [place] IgE Qn (S) <0.35 Normal <0.35 [facility] 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: Order Comment: Speci men Type: BLOOD SPECIMENOrdering Facility: [facility] Address: [address] [place] [address] Performed By: #### 7 613-3, 6206-7, 6718-1, 6273-7 ####[facility] LABCLIA [id number] [place] [id number] [place] IgE Qn (S)on 11-08-19 25 [place] IgE RAST class (S) Class 0 Normal Class 0 [facility] 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: Order Comment: Speci men Type: BLOOD SPECIMENOrdering Facility: [facility] Address: [address] [place] [address] Performed By: #### 7 613-3, 6206-7, 6718-1, 6273-7 ####[facility] LABCLIA [id number] LIZETH CROFT [address] OF [facility] CNOVon 11-04-2024 CNOV Office Visit (FAMPWS ) DILANCONNER ROSALES ([id number]) 1965 M Date Time Provider Department 11/04/24 3:20 PM [facility] your visit today, we recorded the following information about you: Temperature Pulse Respiration Blood pressure 97 degrees 80/minute 12/minute 144/90 Weight Height 103.9 kg 1.73 m Daim Good DO 11/04/2024 6:24 PM Signed Patient [...] two times a day with meals. lancets (Avega SystemsTOUCH DELICA PLUS LANCET) 30 gauge Use as [...] adult ex (more content not included)... [facility] CNOVon 10-08-2024 CNOV Office Visit (PODIWS ) CONNER KONG ([id number]) 1965 M Date Time Provider Department 10/08/24 [...] - Consider custom orthotics (covered by your [facility] insurance) if you experience foot, ankle, knee, [...] (or decreased sensation in your feet) a blood coordinator should always cut your toenails. Be Careful [...] and f (more content not included)... [facility] MR Knee - right WO contrasto n 10-06-2024 IMPRESSION: Incomplete radial tear in the body segment of the medial meniscus. Early chondral wear of the right knee as described. Operating Room Technician: PSCB Transcribe Date/Time: Oct 06 2024 9:22A Dictated by : JESSICA FAUSTIN MD This examination was interpreted and the report reviewed and electronically signed by: JESSICA FAUSTIN MD on Oct 06 2024 9:27AM [facility] DIVISION OF RADIOLOGY * * *Final Report* * * DATE OF EXAM: Oct 06 2024 8:33AM [facility] 0213 - MRI KNEE WO IVCON RT [...] No additional findings. DIVISION OF RADIOLOGY Provider, [facility] - 10/06/2024 * * *Final Report* * * DATE OF EXAM: Oct 06 2024 8:33AM [facility] 0213 - MRI KNEE WO IVCON RT [...] wear of the right knee as described. Operating Room Technician: MONSERRAT Transcribe Date/Time: Oct 06 2024 9:22A Dictated by : JESSICA FAUSTIN MD This examination was interpreted and the report reviewed and electronically signed by: JESSICA FAUSTIN MD on Oct 06 2024 9:27AM EST [facility] Radiology Study observation (narrative) [facility] MR Knee - right WO contrastO rdered By: Ccf Provider on 10-06-2024 [facility] MRI KNEE WO IVCON RTon 10-06 MRI [...] wear of the right knee as described. Operating Room Technician: MONSERRAT Transcribe Date/Time: Oct 06 2024 9:22A Dictated by : JESSICA FAUSTIN MD This examination was interpreted and the report reviewed and electronically signed by: JESSICA FAUSTIN MD on Oct 06 2024 9:27AM EST [id number] [facility] CNOVon 09-18-2024 CNOV Office Visit (FRWS ) DILANCONNER ([id number]) 1965 M Date Time Provider Department 09/18/24 2:00 PM JESSE TORRES V [facility] During your visit today, we recorded the [...] if pain is manageable. Attestation Recording using [employer] software for draft documentation of the visit was discussed with the patient/authorized education courses sales representative; all questions welcomed and answered. Patient/authorized education courses sales representative agreed to proceed Referring Provider: SELF [200] Allergies As of Date: 09/18/2024 Noted Allergy Reaction PENICILLINS 07/31/2024 10 - Anaphylaxis Date Reviewed: 09/18/2024 Reviewed by: Belkis Hale MA - Fully Assessed Reason for Visit: Right Knee Pain [1209] Primary Visit Diagnosis:Derangement of medial meniscus of right knee [M23.303] Order(s):MRI KNEE WO IVCON RIGHT [[id number]] Order #: [id number] FUTURE Prescriptions as of 09/18/2024 - amLODIPine (NORVASC) 5 mg tablet Take 1 tablet by mouth once daily. - lancets (ONETOUCH DELICA PLUS LANCET) 30 gauge Use as directed to test blood sugar twice daily Problem List As Of Date: 09/18/2024 (None) Encounter Status:Closed by JESSE TORRES V on 09/18/24 [facility] CNPNon 09-18-2024 CNPN Telephone (ORTHWS) CONNER KONG ([id number]) 1965 M Date Time Provider Department 09/18/24 [...] Encounter Status:Closed by BELKIS HALE on 09/18/24 [facility] CNOVon 09-09-2024 CNOV Office Visit (FRFHWS ) CONNER KONG ([id number]) 1965 M Date Time Provider Department 09/09/24 2:30 PM JESSE TORRES V [facility] During your visit today, we recorded the [...] pain and bleeding. He was evaluated at [facility] the following day, where an x-ray was performed, and he was prescribed doxycycline. He has been applying triple antibiotic ointment and a bandage daily, removing the bandage after work to allow the wound to air dry. He works near [employer] and keeps the wound covered during work [...] these instructions. Informed Consent Consent Obtained: Verbal Many Protocol SIGN IN TIME OUT Attestation Recording using [employer] software for draft documentation of the visit was discussed with the patient/authorized education courses sales representative; a (more content not included)... [facility] Large Joint Arthro/Inj: R kn [...] these instructions. Informed Consent Consent Obtained: Verbal Many Protocol SIGN IN TIME OUT [facility] CNOVon 09-07-2024 CNOV Office Visit (UCWSTR ) CONNER KONG ([id number]) 1965 M Date Time Provider Department 09/07/24 4:00 PM HARINI MARIANO [facility] During your visit today, we recorded the following information about you: Temperature Pulse Respiration Blood pressure 98.2 degrees 82/minute 16/minute 144/88 Weight 107.6 kg Harini Mariano APRN.CNP 09/07/2024 5:21 PM Signed Subjective The history is provided by the patient. No cable splicer apprentice was used. [facility] Conner Kong is a 59 year [...] to antihypertensive medication. 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 - Recent activities, including remodeling a bathroom floor and walking at [employer], have increased discomfort. BP 144/88 Pulse 82 Temp 36.8 ?C (98.2 ?F) (Tympanic) Resp 16 Wt 107.6 kg (237 lb 3.4 oz) SpO2 96% Social History Tobacco Use Smoking status: Never Smokeless tobacco: Never PAST MEDICAL HISTORY Diagnosis Date Diabetes mellitus (HCC) Essential hypertension I have confirmed and edited as necessary, the [facility] Musculoskeletal: (+) knee pain, (+) knee swelling, [...] detail warranting prompt ER evaluation. Harini Mariano APRN.TRAFFIC SIGNAL TECHNICIAN Allergies As of Date: 09/07/2024 Noted Allergy Reaction PENICILLINS 07/31/2024 10 - Anaphylaxis Date Reviewed: 09/07/2024 Reviewed by: Harini Mariano APRN.TRAFFIC SIGNAL TECHNICIAN - Fully Assessed Reason for Visit: Right Knee Pain [1209] Primary Visit Diagnosis:Acute pain of right knee [M25.561] Order(s):XR KNEE GENERAL 4V AP BOTH/PA BOTH/LAT/MERC RIGHT [[id number]] Order #: [id number] FUTURE CONSULT TO ORTHOPAEDICS [9026] Order #: [id number]: 1 FUTURE Prescriptions as of 09/07/2024 - losartan (COZAAR) 100 mg tablet Take 1 tablet by mouth daily - metFORMIN ER (GLUCOPHAGE XR) 500 mg 24 hr tablet Take 1(one) tablet by mouth two t (more content not included)... [facility] XR KNEE 4V AP/PA BOTH+LAT/ME [...] Suggestion of small bilateral fibular neck exostoses. Operating Room Technician: [employer] Transcribe Date/Time: Sep 07 2024 4:44P Dictated by : PÉREZ RYAN MD This examination was interpreted and the report reviewed and electronically signed by: PÉREZ RYAN MD on Sep 07 2024 4:45PM EST [id number] [facility] XR Knee - right 4 Viewson IMPRESSION: Small right suprapatellar joint effusion. No radiographic evidence of acute osseous abnormality. Suggestion of small bilateral fibular neck exostoses. Operating Room Technician: [employer] Transcribe Date/Time: Sep 07 2024 4:44P Dictated [...] Suggestion of small bilateral fibular neck exostoses. Operating Room Technician: PSCB Transcribe Date/Time: Sep 07 2024 4:44P Dictated by : PÉREZ RYAN MD This examination was interpreted and the report reviewed and electronically signed by: PÉREZ RYAN MD on Sep 07 2024 4:45PM EST [facility] Radiology Study observation (narrative) [facility] XR Knee - right 4 ViewsOrder ed By: Yo Provider on 09-07-2024 [facility] CNOVon 09-02-2024 CNOV Office Visit (UCWSTR ) CONNER KONG ([id number]) 1965 M Date Time Provider Department 09/02/24 11:15 AM JOHN ANDERSON WSTR During your visit today, we recorded the following information about you: Temperature Pulse Respiration Blood pressure 97.4 degrees 80/minute 16/minute 132/82 Weight 107 kg John Anderson, COLLEEN.TRAFFIC SIGNAL TECHNICIAN 09/02/2024 12:46 PM Signed [employer] [...] history is provided by the patient. No cable splicer apprentice was used. Laceration Review of Systems Constitutional: [...] (Patient not taking: Reported on 07/31/2024) lancets ([employer] DELICA PLUS LANCET) 30 gauge Use as [...] was placed for further eval. John Anderson APRN.TRAFFIC SIGNAL TECHNICIAN MDM Procedures Referring Provider: SELF [200] Allergies As of Date: 09/02/2024 Noted Allergy Reaction PENICILLINS 07/31/2024 10 - Anaphylaxis Date Reviewed: 09/02/2024 Reviewed by: Velvet Dias LPN - Fully Assessed Reason for Visit: Laceration [1747] Cmt: Laceration right index finger-happened last night Primary Visit Diagnosis:Open wound [T14.8XXA] Order(s):XR DIGIT GENERAL 3V FRONTAL/LAT/OBL RIGHT [[id number]] Order #: [id number] FUTURE TDAP VACCINE, AGE 7+ YR (ADACEL, BOOSTRIX) [04954IDG] Order #: [id number] doxycycline monohydrate 100 mg tabletTake 1 tablet by mouth two times a day for 5 days.Disp: 10 tabletRfl: 0 CONSULT PANEL TO ORTHOPAEDICS [[id number]] Order #: [id number]: 1 FUTURE Prescriptions as of 09/02/2024 - [...] tablet by mouth twice daily - lancets ([employer] DELICA PLUS LANCET) 30 gauge Use as directed to test blood sugar twice daily - amLODIPine (NORVASC) 5 mg tablet Take 1 tablet by mouth two t (more content not included)... [facility] XR DIGIT 3V FRONTAL/LAT/OBL RTon [...] distal second digit. No acute fracture seen. Operating Room Technician: PSCB Transcribe Date/Time: Sep 02 2024 12:23P Dictated by : AUDI WALLER MD This examination was interpreted and the report reviewed and electronically signed by: AUDI WALLER MD on Sep 02 2024 12:33PM EST [id number] [facility] XR Finger - right AP and Lat eral and obliqueon 09-02-2024 IMPRESSION: Soft tis amanda swelling in the distal second digit. No acute fracture seen. Operating Room Technician: MONSERRAT Transcribe Date/Time: Sep 02 2024 12:23P Dictated by : AUDI WALLER MD This examination was interpreted and the report reviewed and electronically signed by: AUDI WALLER MD on Sep 02 2024 12:33PM [facility] DIVISION OF RADIOLOGY * * *Final Report* [...] of the digit. DIVISION OF RADIOLOGY Provider, [facility] - 09/02/2024 * * *Final Report* * [...] distal second digit. No acute fracture seen. Operating Room Technician: MONSERRAT Transcribe Date/Time: Sep 02 2024 12:23P Dictated by : AUDI WALLER MD This examination was interpreted and the report reviewed and electronically signed by: ADUI WALLER MD on Sep 02 2024 12:33PM EST [facility] Radiology Study observation (narrative) [facility] XR Finger - right AP and Lat eral and obliqueOrdered By: Ccf Provider on 09-02-2024 [facility] Visit Reporton 0 07-03-2019 Urgent Care Visit Report [facility] [address] [place] [address] [address] [place] [id number] OFFICE VISIT Date of Service: 07/03/19 MR#: [id number] Acct: [id number] Name: CONNER KONG Rep #: [id number] : 1965 Provider: Mik BILLINGSLEY Age/Sex: 54/M Location[facility] Status: Signed Intake Vital Signs07/03/19 Height 5 ft 9 in 07/03/19 Weight: 231 lb 07/03/19 BP 132/78 H Intake Visit Reasons: BODYACHES/SORE THROAT/SINUS Allergies Penicillins Allergy (Verified 07/03/19 17:52) Unknown [facility] Medical History (Updated 07/03/19 @ 18:04 by [...] Veliz Signature: Date (if applicable) CC: Normal [facility] Vital Signs Date Time Vital Sign Value Performing Clinician Analisa reece 12-20-2024 14:46-0400 Body mass index (BMI) [Ratio] 34.28 kg/m2 Jenna Leonard APRN.ANNA Work Phone: [facility] 12-20-2024 14:46-0400 Body temperature 97.2 [degF] Jenna Swank PROFESSOR OF GEOLOGY.TRAFFIC SIGNAL TECHNICIAN Work Phone: [facility] 12-20-2024 14:46-0400 Body weight 102.6 kg Jenna Leonard PROFESSOR OF GEOLOGY.TRAFFIC SIGNAL TECHNICIAN Work Phone: [facility] 12-20-2024 14:46-0400 Diastolic blood pressure 86 mm[Hg] Jenna Leonard PROFESSOR OF GEOLOGY.TRAFFIC SIGNAL TECHNICIAN Work Phone: [facility] 12-20-2024 14:46-0400 Heart rate 80 /min Jenna Swank PROFESSOR OF GEOLOGY.TRAFFIC SIGNAL TECHNICIAN Work Phone: [facility] 12-20-2024 14:46-0400 Respiratory rate 20 /min Jenna Swank PROFESSOR OF GEOLOGY.TRAFFIC SIGNAL TECHNICIAN Work Phone: [facility] 12-20-2024 14:46-0400 SaO2% (BldA) [Mass fraction] 97 % Jenna Swank PROFESSOR OF GEOLOGY.TRAFFIC SIGNAL TECHNICIAN Work Phone: [facility] 12-20-2024 14:46-0400 Systolic blood pressure 148 mm[Hg] Jenna Swank PROFESSOR OF GEOLOGY.TRAFFIC SIGNAL TECHNICIAN Work Phone: [facility] 11-04-2024 15:23-0400 Body height 173 cm Dami Good DO Work Phone: [facility] 11-04-2024 15:23-0400 Body mass index (BMI) [Ratio] 34.71 kg/m2 Dami Good DO Work Phone: [facility] 11-04-2024 15:23-0400 Body temperature 97 [degF] Dami Good DO Work Phone: [facility] 11-04-2024 15:23-0400 Body weight 103.87 kg Dami Good DO Work Phone: [facility] 11-04-2024 15:23-0400 Diastolic blood pressure 90 mm[Hg] Dami Good DO Work Phone: [facility] 11-04-2024 15:23-0400 Heart rate 80 /min Dami Good DO Work Phone: [facility] 11-04-2024 15:23-0400 Respiratory rate 12 /min Dami Good DO Work Phone: [facility] 11-04-2024 15:23-0400 Systolic blood pressure 144 mm[Hg] Dami Good DO Work Phone: [facility] 09-07-2024 16:00-0400 Diastolic blood pressure 88 mm[Hg] Harini Rodriguesk PROFESSOR OF GEOLOGY.TRAFFIC SIGNAL TECHNICIAN Work Phone: [facility] 09-07-2024 16:00-0400 Systolic blood pressure 144 mm[Hg] Harini Montserrat PROFESSOR OF GEOLOGY.TRAFFIC SIGNAL TECHNICIAN Work Phone: [facility] 09-07-2024 15:57-0400 Body temperature 98.2 [degF] Harini Montserrat PROFESSOR OF GEOLOGY.TRAFFIC SIGNAL TECHNICIAN Work Phone: [facility] 09-07-2024 15:57-0400 Body weight 107.6 kg Harini Mariano PROFESSOR OF GEOLOGY.TRAFFIC SIGNAL TECHNICIAN Work Phone: [facility] 09-07-2024 15:57-0400 Heart rate 82 /min Harini Montserrat PROFESSOR OF GEOLOGY.TRAFFIC SIGNAL TECHNICIAN Work Phone: [facility] 09-07-2024 15:57-0400 Respiratory rate 16 /min Harini Mariano PROFESSOR OF GEOLOGY.TRAFFIC SIGNAL TECHNICIAN Work Phone: [facility] 09-07-2024 15:57-0400 SaO2% (BldA) [Mass fraction] 96 % Harini Mariano PROFESSOR OF GEOLOGY.TRAFFIC SIGNAL TECHNICIAN Work Phone: [facility] 09-02-2024 11:16-0400 Body temperature 97.39 [degF] John Anderson PROFESSOR OF GEOLOGY.TRAFFIC SIGNAL TECHNICIAN Work Phone: [facility] 09-02-2024 11:16-0400 Body weight 107 kg John Anderson PROFESSOR OF GEOLOGY.TRAFFIC SIGNAL TECHNICIAN Work Phone: [facility] 09-02-2024 11:16-0400 Diastolic blood pressure 82 mm[Hg] John Anderson PROFESSOR OF GEOLOGY.TRAFFIC SIGNAL TECHNICIAN Work Phone: [facility] 09-02-2024 11:16-0400 Heart rate 80 /min John Anderson PROFESSOR OF GEOLOGY.TRAFFIC SIGNAL TECHNICIAN Work Phone: [facility] 09-02-2024 11:16-0400 Respiratory rate 16 /min John Anderson PROFESSOR OF GEOLOGY.TRAFFIC SIGNAL TECHNICIAN Work Phone: [facility] 09-02-2024 11:16-0400 SaO2% (BldA) [Mass fraction] 96 % John Anderson APRN.TRAFFIC SIGNAL TECHNICIAN Work Phone: [facility] 09-02-2024 11:16-0400 Systolic blood pressure 132 mm[Hg] John Anderson APRN.TRAFFIC SIGNAL TECHNICIAN Work Phone: [facility] Encounters Encounter Date Encounter Type Care Provider Facility Start: 12-20-2024 End: 12-20-2024 Subsequent hospital visit by physician Xr [facility] [place] Work Phone: Radiology 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: Upper limb injury, r ight, initial encounter [S49.91XA] Start: 12-20-2024 End: 12-20-2024 Patient encounter procedure Jenna Rosasoliva MCCANNTRAFFIC SIGNAL TECHNICIAN Work Phone: [facility] [place] 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: Upper limb injury, r ight, initial encounter (Primary Dx); Contusion of right elbow, initial encounter Start: 12-20-2024 End: 12-20-2024 ambulatory DAMI GOOD Facility:[facility] Start: 12-09-2024 End: 12-09-2024 ambulatory Maria Elena Lucero RN [facility] Start: 12-09-2024 End: 12-09-2024 Coordination of care plan Maria Elena Lucero RN [facility] 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: CARE COORDINATION Start: 11-25-2024 End: 11-25-2024 Refill Dami Valdezon DO Work Phone: [facility] 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: Refill Request Start: 11-11-2024 End: 11-11-2024 ambulatory Maria Elena Lucero RN [facility] 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 Start: 11-10-2024 End: 11-10-2024 ambulatory Dami Carrrison DO Work Phone: [facility] [place] 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: Amlodipone Start: 11-10-2024 End: 11-11-2024 Telephone encounter Dami Carrrison DO Work Phone: [facility] [place] 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: Medication Problem Start: 11-09-2024 End: 11-09-2024 Follow-up encounter Mara White APRN.TRAFFIC SIGNAL TECHNICIAN Work Phone: Family [facility] 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: Results Start: 11-07-2024 End: 11-07-2024 ambulatory DAMI GOOD Facility:[facility] Start: 11-04-2024 End: 11-04-2024 Patient encounter procedure [...] status Dami Good DO Work Phone: [facility] Start: 11-04-2024 End: 11-04-2024 ambulatory DAMI GOOD Facility:[facility] Start: 10-08-2024 End: 10-08-2024 ambulatory JASMIN ENMANUEL Facility:[facility] Start: 10-08-2024 End: 10-08-2024 Patient encounter procedure Jasmin Falcon Work Phone: Podiatry 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: Diabetic polyneuropa thy associated with type 2 diabetes mellitus (HCC) (Primary Dx); Hallux rigidus of left foot; Hallux rigidus of right foot Start: 10-06-2024 End: 10-08-2024 Follow-up encounter Jesse Torres DO Work Phone: Orthopaedics Start: 10-06-2024 ambulatory JESSE TORRES Facility:[facility] Start: 10-06-2024 End: 10-06-2024 Subsequent hospital visit by physician Mri Radio [facility] (I-Stat/1.5t) Work Phone: Radiology 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: Derangement of media l meniscus of right knee [M23.303] Start: 09-18-2024 End: 09-18-2024 ambulatory JESSE TORRES Facility:[facility] Start: 09-18-2024 End: 09-18-2024 Patient encounter procedure Jesse Torres DO Work Phone: [facility] [place] 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: Derangement of media l meniscus of right knee (Primary Dx) Start: 09-18-2024 End: 09-18-2024 Telephone encounter Jesse Torres DO Work Phone: Orthopaedics 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: Patient Update Start: 09-14-2024 End: 09-14-2024 Refill Dami Good MD Work Phone: [facility] [place] 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: Refill Request Start: 09-09-2024 End: 09-09-2024 Patient encounter procedure Jesse Torres DO Work Phone: [facility] [place] 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: Effusion of right kn ee joint (Primary Dx); Laceration without foreign body of right index finger with damage to nail, initial encounter; Sprain of unspecified site of right knee, initial encounter Start: 09-09-2024 End: 09-09-2024 ambulatory JESSE DOMINIQUE Facility:[facility] Start: 09-07-2024 End: 09-07-2024 Subsequent hospital visit by physician Xr [facility] [place] Work Phone: Radiology 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: Acute pain of right knee [M25.561] Start: 09-07-2024 End: 09-07-2024 Patient encounter procedure Harini Mariano APRN.CNP Work Phone: [facility] 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: Acute pain of right knee (Primary Dx) Start: 09-07-2024 End: 09-07-2024 ambulatory HARINI MARIANO Facility:[facility] Start: 09-07-2024 End: 11-07-2024 Follow-up encounter Harini Mariano APRN.TRAFFIC SIGNAL TECHNICIAN Work Phone: [place] [facility] Start: 09-02-2024 End: 09-02-2024 Patient encounter procedure John Anderson APRN.TRAFFIC SIGNAL TECHNICIAN Work Phone: [facility] 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: Open wound (Primary Dx) Start: 09-02-2024 End: 09-02-2024 ambulatory SELF Facility:[facility] Start: 07-31-2024 End: 07-31-2024 ambulatory CLARK KUHN Facility:[facility] Start: 07-31-2024 End: 07-31-2024 Patient encounter procedure Clark Kuhn OD Work Phone: Ophthalmology 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: Type 2 diabetes sukh itus without retinopathy (HCC) (Primary Dx); Myopia, bilateral; Regular astigmatism of both eyes; Presbyopia Start: 07-17-2024 End: 07-17-2024 ambulatory Maria Elena Lucero RN [facility] Start: 07-17-2024 End: 07-17-2024 Coordination of care plan Maria Elena Lucero RN [facility] 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: CARE COORDINATION Start: 07-16-2024 End: 07-16-2024 ambulatory Soraya Guadalupe MA [facility] 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 Start: 09-27-2023 End: 09-27-2023 [facility] Start: 06-11-2023 End: 06-11-2023 ambulatory [facility] Procedures Date Procedure Procedure Detail Performing Clinician Start: 12-20-2024 Radex elbow complete minimum 3 views Jenna Leonard PROFESSOR OF GEOLOGY.TRAFFIC SIGNAL TECHNICIAN Work Phone: Start: 10-06-2024 Mri any jt lower ext rem w/o contrast matrl Jesse Torres DO Work Phone: Start: 09-09-2024 Arthrocentesis aspir &/inj major jt/bursa w/o us Jesse Torres DO Work Phone: Start: 09-07-2024 Radiologic exam knee complete 4/more views Harini Mariano PROFESSOR OF GEOLOGY.TRAFFIC SIGNAL TECHNICIAN Work Phone: Start: 05-28-2023 Lipid 1996 panel - S noah or Plasma Soraya Guadalupe MA Plan of Treatment Date Care Activity Detail Author Start: 09-02-2034 Urine microalbumin profile DTaP,Tdap,Td Vaccine (2 - Td or Tdap) [facility] Start: 11-07-2029 Prostate specific antigen measurement Prostate Cancer Screening Discussion [facility] Start: 05-28-2028 Lipid panel Lipid Screening [facility] Start: 05-28-2028 Prostate specific antigen measurement Prostate Cancer Screening Discussion [facility] Start: 05-28-2026 Diabetes Screening Diabetes Screenin g [facility] Start: 11-07-2025 Hepatitis B screening Urine Albumin:Creatinine Ratio [facility] Start: 11-07-2025 Hepatitis B surface antibody level LDL Cholesterol [facility] Start: 11-04-2025 Annual PCP Team Commercial Maintenance Technician sylvia Disease Visit Annual PCP Team Chronic Disease Visit [facility] Start: 10-11-2025 End: 10-11-2025 Patient encounter procedure 10/11/2025 1:00 PM EDT Office Visit Podiatry [address] [place] [address] Jasmin Falcon [address] [place] [address] 1 year follow up Podiatry 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: 1 year follow up Start: 08-02-2025 End: 08-02-2025 Patient encounter procedure 08/02/2025 1:45 PM EDT Office Visit [facility] [address] [place] [address] Clark Kuhn, OD [address] [place] [address] 1 YR F/U for diabetic eye exam / CL EVAL Ophthalmology 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: 1 YR F/U for diabeti c eye exam / CL EVAL Start: 07-31-2025 Glaucoma screening Dilated Retinal E xam [facility] Start: 05-09-2025 Hemoglobin A1c measurement HbA1C [facility] Start: 01-11-2025 Influenza vaccination [facility] Start: 12-23-2024 End: 12-23-2024 Patient encounter procedure 12/23/2024 3:00 PM EDT Office Visit [facility] [place] [address] [place] [address] Jesse Torres V, DO [address] [place] [address] Upper limb injury, right, initial encounter [S49.91XA] [facility] [place] 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: Upper limb injury, r ight, initial encounter [S49.91XA] Start: 11-04-2024 End: 11-04-2024 Patient encounter procedure 11/04/2024 3:20 PM EDT Office Visit [facility] [place] [address] [facility] [place] [place] [id number] Dami Good DO [address] [place] [address] NEW PATIENT [facility] [place] 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: NEW PATIENT Start: 11-04-2024 End: 02-03-2025 Cashew nut IgE Ab [Units/volume] in Serum ALGN CASHEW NUT IGE Lab Routine Nut allergy Expected: 11/04/2024, Expires: 02/03/2025 [facility] 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: Expected: 11/04/2024 , Expires: 02/03/2025 Start: 11-04-2024 End: 02-03-2025 CBC W Auto Differential panel - Blood COMPLETE BLOOD COUNT AND DIFFERENTIAL Lab Routine Type 2 diabetes mellitus without complication, without long-term current use of insulin (HCC) Expected: 11/04/2024, Expires: 02/03/2025 [facility] 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: Expected: 11/04/2024 , Expires: 02/03/2025 Start: 11-04-2024 End: 02-03-2025 Comprehensive metabolic 2000 panel - Serum or Plasma COMPREHENSIVE METABOLIC PANEL Lab Routine Type 2 diabetes mellitus without complication, without long-term current use of insulin (HCC) Expected: 11/04/2024, Expires: 02/03/2025 [facility] 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: Expected: 11/04/2024 , Expires: 02/03/2025 Start: 11-04-2024 End: 02-03-2025 Hemoglobin A1c in Blood HEMOGLOBIN A1C Lab Routine Type 2 diabetes mellitus without complication, without long-term current use of insulin (HCC) Expected: 11/04/2024, Expires: 02/03/2025 [facility] Work Phone: 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: Expected: 11/04/2024 , Expires: 02/03/2025 Start: 11-04-2024 End: 02-03-2025 Lipid 1996 panel - Serum or Plasma LIPID PANEL, FASTING Lab Routine Dyslipidemia Expected: 11/04/2024, Expires: 02/03/2025 [facility] 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: Expected: 11/04/2024 , Expires: 02/03/2025 Start: 11-04-2024 End: 02-03-2025 Microalbumin/Creatinine [Mass Ratio] in Urine ALBUMIN/CREATININE RATIO, URINE Lab Routine Type 2 diabetes mellitus without complication, without long-term current use of insulin (HCC) Expected: 11/04/2024, Expires: 02/03/2025 [facility] 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: Expected: 11/04/2024 , Expires: 02/03/2025 Start: 11-04-2024 End: 02-03-2025 Peanut IgE Ab [Units/volume] in Serum ALGN PEANUT IGE Lab Routine Nut allergy Expected: 11/04/2024, Expires: 02/03/2025 [facility] 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: Expected: 11/04/2024 , Expires: 02/03/2025 Start: 11-04-2024 End: 02-03-2025 Pistachio IgE Ab [Units/volume] in Serum ALGN PISTACHIO IGE Lab Routine Nut allergy Expected: 11/04/2024, Expires: 02/03/2025 [facility] Comment on above: Expected: 11/04/2024 , Expires: 02/03/2025 Start: 11-04-2024 End: 02-03-2025 PSA/PROSTATE SPECIFIC ANTIGEN SCREENING PSA/PROSTATE SPECIFIC ANTIGEN SCREENING Lab Routine Screening for prostate cancer Expected: 11/04/2024, Expires: 02/03/2025 [facility] Comment on above: Expected: 11/04/2024 , Expires: 02/03/2025 Start: 11-04-2024 End: 02-03-2025 Thyrotropin [Units/volume] in Serum or Plasma THYROID STIMULATING HORMONE Lab Routine Hypertension, essential Expected: 11/04/2024, Expires: 02/03/2025 [facility] Comment on above: Expected: 11/04/2024 , Expires: 02/03/2025 Start: 11-04-2024 End: 02-03-2025 [place] IgE Ab [Units/volume] in Serum ALGN WALNUT IGE Lab Routine Nut allergy Expected: 11/04/2024, Expires: 02/03/2025 [facility] Comment on above: Expected: 11/04/2024 , Expires: 02/03/2025 Start: 10-08-2024 End: 10-08-2024 Patient encounter procedure 10/08/2024 1:30 PM EDT Office Visit Podiatry [address] [place] [address] Jasmin Falcon [address] [place] [address] consult diabetic foot care Podiatry Comment on above: consult diabetic lokesh t care Start: 07-31-2024 End: 07-31-2024 Patient encounter procedure 07/31/2024 3:15 PM EDT Office Visit [facility] [address] [place] [address] Clark Kuhn, OD [address] [place] [address] Routine Ophthalmology Comment on above: Routine Start: 05-28-2024 Hepatitis B surface antibody level LDL Cholesterol [facility] Start: 01-12-2024 Covid-19 Vaccine ( season) Covid-19 Vaccine ( season) [facility] Start: 01-12-2024 Influenza vaccination Influenza Vacc ine (#1) [facility] Start: 08-27-2023 Hemoglobin A1c measurement HbA1C [facility] Start: 2017 Pneumococcal Vaccine : 50+ (1 of 1 - PCV) Pneumococcal Vaccine: 50+ (1 of 1 - PCV) [facility] Start: 2017 Shingrix Vaccine (1 of 2) Shingrix Vaccine (1 of 2) [facility] Start: 2012 Screening for malign ant neoplasm of colon [facility] Start: 1986 Hepatitis B Vaccine (1 of 3 - 19+ 3-dose series) Hepatitis B Vaccine (1 of 3 - 19+ 3-dose series) [facility] Start: 1986 Pneumococcal Vaccine : 50+ (1 of 2 - PCV) Pneumococcal Vaccine: 50+ (1 of 2 - PCV) [facility] Start: 1986 Urine microalbumin profile DTaP,Tdap,Td Vaccine (1 - Tdap) [facility] Start: 1985 Annual PCP Team Commercial Maintenance Technician sylvia Disease Visit Annual PCP Team Chronic Disease Visit [facility] Start: 1985 Anxiety Screening Anxiety Screening [facility] Start: 1985 Depression Screening Depression Scre ening [facility] Start: 1985 Hepatitis C screening Hepatitis C Sc reening [facility] Start: 1985 HIV screening HIV Screening [facility] Start: 1977 Diabetic foot examination Diabetic Foot Exam [facility] Start: 1977 Hepatitis B screening Urine Albumin:Creatinine Ratio [facility] End: 10-18-2025 MR Knee - right WO contrast MRI KNEE WO IVCON RIGHT Radiology Routine Derangement of medial meniscus of right knee 1 Occurrences starting 09/18/2024 until 10/18/2025 [facility] Work Phone: Comment on above: 1 Occurrences starti ng 09/18/2024 until 10/18/2025 Immunizations Immunization Date Immunization Notes Care Provider Kayleigh carrillo 09-02-2024 tetanus toxoid, redu braeden diphtheria toxoid, and acellular pertussis vaccine, adsorbed John Anderson APRN.CNP Work Phone: [facility] Payers Date Payer Category Payer Private Health Insurance P AET NA [id number] 2023 Unknown [id number] 2021 Unknown [id number] 1967 Unknown [id number] 1967 Unknown [id number] Social History Date Type Detail Facility [facility]: [facility]06[facility] Start: 07-06-2015 Tobacco use and exposure Smoke less tobacco non-user [facility] Start: 07-06-2015 End: 09-07-2024 Alcoholic beverage intake Not Asked [facility] Start: 1965 Sex assigned at Not on file [facility] Start: 07-31-2024 End: 09-09-2024 Gender identity Not on file [facility] Start: 07-31-2024 End: 09-09-2024 History of Social function [facility] Start: 07-06-2015 National Score (1-10 0), lower number is lower risk 72 [facility] Start: 10-08-2024 End: 11-04-2024 Alcoholic beverage intake Current drinker of alcohol (finding) [facility] Start: 10-08-2024 Alcohol Comment socially [facility] Has the [employer], or [facility] threatened to shut off services in your home in past 12Mo No [facility] Are you now , , , , never or living with a partner? [facility] How often to you hav e a drink containing alcohol? 2-4 times a month [facility] How many standard dr inks containing alcohol do you have on a typical day? 1 or 2 [facility] How often do you hav e 6 or more drinks on 1 occasion? Less than monthly [facility] Do you feel stress - tense, restless, nervous, or anxious, or unable to sleep at night because your mind is troubled all the time - these days [OSQ] Not at all [facility] (I/We) worried joey er (my/our) food would run out before (I/we) got money to buy more. Never true [facility] Medical Equipment Procedure Code Equipment Code Equipment Origin al Text Equipment Identifier Dates Use as directed to test blood sugar twice daily [id number] Start: 06-05-2023 Functional Status Date Assessment Result Facility 10-31-2024 Total score [AUDIT-C] 3 11/01/19 9:24 AM EDT User, Zot [facility] 10-31-2024 How often to you hav e a drink containing alcohol? 2-4 times a month 10/31/2024 9:24 AM EDT User, Mychart 2-4 times a month [facility] 10-31-[address] inks containing alcohol do you have on a typical day? 1 or 2 10/31/2024 9:24 AM EDT User, Mychart 1 or 2 [facility] 10-31-2024 How often do you hav e 6 or more drinks on 1 occasion? Less than monthly 10/31/2024 9:24 AM EDT User, Gabyvirgiliot Less than monthly [facility] Clinical Notes 07-17-2024 to 12-20-2024 Jenna Leonard APRN.CNP - 12/20/2024 3:40 PM EDTDaEli abbasi Tech - 12/20/2024 3:10 PM EDTEHP Outreach Note - Maria Elena Lucero RN - 12/09/2024 12:39 PM EDTPatient Instructions Note Date & Type Note Facility 12-20-2024 Note HNO ID: [id number] Author: JENNA LEONARD APRN.ANNA Service: ? Author Type: Nurse Practitioner Type: Progress Notes Filed: 12/20/2024 15:44 Note Text: [facility] [place] Knog is a 59 year old male. Patient [...] two times a day with meals. lancets ([employer] DELICA PLUS LANCET) 30 gauge Use as [...] patient put in sling. and Recording using [employer] software for draft documentation of the visit was discussed with the patient/authorized education courses sales representative; all questions welcomed and answered. Patient/authorized education courses sales representative agreed to proceed MDM patient well-appearing [...] use: Yes Comment: socially Drug use: Never [facility] 12-20-2024 History of Present illness [...] two times a day with meals. lancets ([employer] DELICA PLUS LANCET) 30 gauge Use as [...] patient put in sling. and Recording using [employer] software for draft documentation of the visit was discussed with the patient/authorized education courses sales representative; all questions welcomed and answered. Patient/authorized education courses sales representative agreed to proceed MDM patient well-appearing [...] PM did discuss he can access his [employer] for radiology read did discuss an overview [...] use: Never documented in this encounter [facility] 12-20-2024 History of Present illness Narrative Radiology [...] PATIENT PRESENTS WITH AN IMPLANTABLE OR ATTACHED HOME THERAPY CLINICIAN: No RADIOLOGY DEPARTMENT: General X-ray: Exam(s) Completed: Upper Extremity X-Ray(s): Elbow, right PERIPHERAL IV DATA: Not applicable SIGNED BY: Mehdi Freeman December 20, 2024 3:05 PM documented in this encounter [facility] 12-20-2024 Note HNO ID: [id number] Author: ELI TORRES Tech Service: ? Author Type: Performance Improvement Consultant Type: Progress Notes Filed: 12/20/2024 15:13 Note [...] PATIENT PRESENTS WITH AN IMPLANTABLE OR ATTACHED HOME THERAPY CLINICIAN: No RADIOLOGY DEPARTMENT: General X-ray: Exam(s) Completed: Upper Extremity X-Ray(s): Elbow, right PERIPHERAL IV DATA: Not applicable SIGNED BY: Mehdi Freeman December 20, 2024 3:05 PM [facility] 12-09-2024 Note Formatting of this n ote might be different from the original. Losartan Amlodipine Metformin Y [facility] 12-09-2024 Miscellaneous Notes Losartan Amlodipine Metformin Y documented in this encounter [facility] 11-25-2024 Telephone encounter Note Patient has requested attached RX be re-filled at [facility] instead of previously used pharmacy. Due to market staffing shortages, [id number] transfers can cause delays due to longer hold times. Please send new RX directly to our pharmacy per patient request. Once approved, please discontinue old orders in Epic to mitigate any duplicate therapy. Thank you! [facility] [phone] (phone) [phone] (fax) [facility] 11-25-2024 Miscellaneous Notes Patient has requested attached RX be re-filled at [facility] instead of previously used pharmacy. Due to market staffing shortages, [id number] transfers can cause delays due to longer hold times. Please send new RX directly to our pharmacy per patient request. Once approved, please discontinue old orders in Epic to mitigate any duplicate therapy. Thank you! [facility] [phone] (phone) [phone] (fax) documented in this encounter [facility] 11-11-2024 Telephone encounter Note PDMP website checked [...] day. Authorizing Provider: MARA WHITE APRN.CNP [facility] 11-11-2024 Miscellaneous Notes PDMP website checked and [...] APRN.CNP Spouse (Shae) calls to report that [facility] will not allow patient to refill the amlodipine as it is too soon to refill based on prescription sent is for once daily. Order sent in is for once daily and patient takes amlodipine 5 mg twice daily as previously ordered by Kaylyn BILLINGSLEY. Pended request. Patient has two pills left. Germania White RN documented in this encounter [facility] 11-10-2024 Telephone encounter Note Spouse (Shae) calls to report that [facility] will not allow patient to refill the amlodipine as it is too soon to refill based on prescription sent is for once daily. Order sent in is for once daily and patient takes amlodipine 5 mg twice daily as previously ordered by Kaylyn BILLINGSLEY. Pended request. Patient has two pills left. Germania White RN [facility] 11-10-2024 Telephone encounter Note Spoke to and advised rx was refilled 11/04 needs to call [facility] and speak to staff for refill Amina Martino MA [facility] 11-10-2024 Miscellaneous Notes Spoke to and advised rx was refilled 11/04 needs to call [facility] and speak to staff for refill Amina Martino MA documented in this encounter [facility] 11-09-2024 Telephone encounter Note Pt notified of results via [employer]. Tisha Esteves Ma [facility] 11-09-2024 Miscellaneous Notes Pt notified of results via [employer]. Tisha Esteves Ma ----- Message from Mara White APRN.TRAFFIC SIGNAL TECHNICIAN sent at 11/09/2024 8:59 AM EDT [...] exercise to improve. Take care, Mara White APRN.TRAFFIC SIGNAL TECHNICIAN documented in this encounter [facility] 11-09-2024 Telephone encounter Note ----- Message from Mara White APRN.TRAFFIC SIGNAL TECHNICIAN sent at 11/09/2024 8:59 AM EDT [...] diet and exercise to improve. Mara Huggins APRN.TRAFFIC SIGNAL TECHNICIAN [facility] 11-04-2024 Note HNO ID: [id number] Author: DAMI GOOD, DO Service: ? Author [...] two times a day with meals. lancets ([employer] DELICA PLUS LANCET) 30 gauge Use as [...] mellitus without complic (more content not included)... [facility] 11-04-2024 History of Present illness Narrative Patient presents with: [facility] HPI: Conner Kong is a 59 year [...] two times a day with meals. lancets ([employer] DELICA PLUS LANCET) 30 gauge Use as [...] agreed with the plan. Dami Good DO [address] [place] [address] documented in this encounter [facility] 10-08-2024 Note HNO ID: [id number] Author: JASMIN FALCON, ? Service: ? Author [...] no ongoing issues. 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 90 tablet 1 lancets ([employer] DELICA PLUS LANCET) 30 gauge Use as [...] foot, ankle, knee, or back pain develops; [facility] insurance covers custom orthotics. - Follow-up in [...] supportive footwear and foot care. Recording using [employer] software for draft documentation of the visit was discussed with the patient/authorized education courses sales representative; all questions welcomed and answered. Patient/authorized education courses sales representative agreed to proceed Jasmin Falcon DPM [facility] 10-08-2024 History of Present illness [...] no ongoing issues. 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 90 tablet 1 lancets (Avega SystemsTOUCH DELICA PLUS LANCET) 30 gauge Use as [...] foot, ankle, knee, or back pain develops; [facility] insurance covers custom orthotics. - Follow-up in [...] supportive footwear and foot care. Recording using [employer] software for draft documentation of the visit was discussed with the patient/authorized education courses sales representative; all questions welcomed and answered. Patient/authorized education courses sales representative agreed to proceed Jasmin Falcon DPM Patient presents with: Left Foot - New, Diabetic Foot Care Right Foot - New, Diabetic Foot Care Patient presents as new patient for diabetic foot care. Also due for diabetic foot exam. Denies any pain or problems. documented in this encounter [facility] 10-08-2024 Instructions Jasmin Falcon - 10/08/2024 2:04 [...] - Consider custom orthotics (covered by your [facility] insurance) if you experience foot, ankle, knee, [...] (or decreased sensation in your feet) a blood coordinator should always cut your toenails. Be Careful [...] Go to your health care provider or blood coordinator to treat these conditions. documented in this encounter [facility] 10-08-2024 Note HNO ID: [id number] Author: PAYAL FENG RN Service: ? Author Type: Registered Nurse Type: Progress Notes Filed: 10/08/2024 14:40 Note Text: Patient presents with: Left Foot - New, Diabetic Foot Care Right Foot - New, Diabetic Foot Care Patient presents as new patient for diabetic foot care. Also due for diabetic foot exam. Denies any pain or problems. [facility] 10-06-2024 History of Present illness [...] PATIENT PRESENTS WITH AN IMPLANTABLE OR ATTACHED HOME THERAPY CLINICIAN: No RADIOLOGY DEPARTMENT: MR; Exam(s) Completed: Lower MSK: Knee, right . Lavender Administered: No PERIPHERAL IV DATA: Not applicable SIGNED BY: DALY Schroeder October 06, 2024 8:24 AM documented in this encounter [facility] 10-06-2024 Note HNO ID: [id number] Author: ALEYDA LANDIN CT Service: Radiology Author [...] PATIENT PRESENTS WITH AN IMPLANTABLE OR ATTACHED HOME THERAPY CLINICIAN: No RADIOLOGY DEPARTMENT: MR; Exam(s) Completed: Lower MSK: Knee, right . Lavender Administered: No PERIPHERAL IV DATA: Not applicable SIGNED BY: DALY Schroeder October 06, 2024 8:24 AM [facility] 09-18-2024 Note HNO ID: [id number] Author: JESSE TORRES, Service: ? Author Type: [...] if pain is manageable. Attestation Recording using [email or web address] software for draft documentation of the visit was discussed with the patient/authorized education courses sales representative; all questions welcomed and answered. Patient/authorized education courses sales representative agreed to proceed [facility] 09-18-2024 History of Present illness [...] if pain is manageable. Attestation Recording using [employer] software for draft documentation of the visit was discussed with the patient/authorized education courses sales representative; all questions welcomed and answered. Patient/authorized education courses sales representative agreed to proceed AMB ROOMING INTAKE FLOWSHEET DATA Pain Pain Level: 8 Pain Location: Knee-Right Description: Sharp, Aching Duration Amount of Time: (ongoing) Frequency: Continuous Intervention/Comfort measure: Other: See comment, Medication (compression) documented in this encounter [facility] 09-18-2024 Note HNO ID: [id number] Author: BELKIS HALE MA Service: ? Author Type: Early Head Start Teacher Type: Progress Notes Filed: 09/18/2024 15:10 Note Text: AMB ROOMING INTAKE FLOWSHEET DATA Pain Pain Level: 8 Pain Location: Knee-Right Description: Sharp, Aching Duration Amount of Time: (ongoing) Frequency: Continuous Intervention/Comfort measure: Other: See comment, Medication (compression) [facility] 09-18-2024 Telephone encounter Note Patients stopped in the office. States the patient tweaked his right knee last night and today is not able to bear any weight on the leg. She is requesting an appointment today for evaluation because the patient had to call off work. [facility] 09-18-2024 Miscellaneous Notes Patients stopped in the office. States the patient tweaked his right knee last night and today is not able to bear any weight on the leg. She is requesting an appointment today for evaluation because the patient had to call off work. documented in this encounter [facility] 09-14-2024 Note Addended by: MARA WHITE on: 09/14/2024 11:07 AM Modules accepted: Orders [facility] 09-14-2024 Miscellaneous Notes Addended by: MARA WHITE on: 09/14/2024 11:07 AM Modules accepted: Orders Pt. Niels in October is a [employer] employee. He is out of refills documented in this encounter [facility] 09-14-2024 Telephone encounter Note Pt. Niels in October is a [employer] employee. He is out of refills [facility] Work Phone: 09-09-2024 Note HNO ID: [id number] Author: JESSE TORRES, DO Service: ? Author [...] pain and bleeding. He was evaluated at [facility] the following day, where an x-ray was performed, and he was prescribed doxycycline. He has been applying triple antibiotic ointment and a bandage daily, removing the bandage after work to allow the wound to air dry. He works near [employer] and keeps the wound covered during work [...] these instructions. Informed Consent Consent Obtained: Verbal Many Protocol SIGN IN TIME OUT Attestation Recording using [email or web address] software for draft documentation of the visit was discussed with the patient/authorized education courses sales representative; all questions welcomed and answered. Patient/authorized education courses sales representative agreed to proceed [facility] 09-09-2024 History of Present illness [...] pain and bleeding. He was evaluated at [facility] the following day, where an x-ray was performed, and he was prescribed doxycycline. He has been applying triple antibiotic ointment and a bandage daily, removing the bandage after work to allow the wound to air dry. He works near [employer] and keeps the wound covered during work [...] these instructions. Informed Consent Consent Obtained: Verbal Many Protocol SIGN IN TIME OUT Attestation Recording using [email or web address] software for draft documentation of the visit was discussed with the patient/authorized education courses sales representative; all questions welcomed and answered. Patient/authorized education courses sales representative agreed to proceed Patient presents with: Right knee pain and right index finger laceration AMB ROOMING INTAKE FLOWSHEET DATA Pain Pain Level: 6 Pain Location: Knee-Right Description: Aching Duration Amount of Time: 3 Duration Units: Weeks Frequency: Intermittent (Occurs with weight bearing) Intervention/Comfort measure: Medication documented in this encounter [facility] 09-09-2024 Note HNO ID: [id number] Author: MAGUI ANDERSON MA Service: ? Author Type: Early Head Start Teacher Type: Progress Notes Filed: 09/09/2024 14:55 Note Text: Patient presents with: Right knee pain and right index finger laceration AMB ROOMING INTAKE FLOWSHEET DATA Pain Pain Level: 6 Pain Location: Knee-Right Description: Aching Duration Amount of Time: 3 Duration Units: Weeks Frequency: Intermittent (Occurs with weight bearing) Intervention/Comfort measure: Medication [facility] 09-07-2024 History of Present illness [...] PATIENT PRESENTS WITH AN IMPLANTABLE OR ATTACHED HOME THERAPY CLINICIAN: No RADIOLOGY DEPARTMENT: General X-ray: Exam(s) Completed: Lower Extremity X-Ray(s): Knee, AP / Lat / Tunne / Merchant Right and Wt. Bearing PERIPHERAL IV DATA: Not applicable SIGNED BY: RT Roxanne(Nanda) September 07, 2024 4:25 PM documented in this encounter [facility] 09-07-2024 Note HNO ID: [id number] Author: LAYLA GARCIA RT(R) Service: Radiology Author [...] PATIENT PRESENTS WITH AN IMPLANTABLE OR ATTACHED HOME THERAPY CLINICIAN: No RADIOLOGY DEPARTMENT: General X-ray: Exam(s) Completed: Lower Extremity X-Ray(s): Knee, AP / Lat / Tunne / Merchant Right and Wt. Bearing PERIPHERAL IV DATA: Not applicable SIGNED BY: RT Roxanne(R) September 07, 2024 4:25 PM [facility] 09-07-2024 Note HNO ID: [id number] Author: HARINI MARIANO APRN.TRAFFIC SIGNAL TECHNICIAN Service: ? Author Type: Nurse Practitioner Type: Progress Notes Filed: 09/07/2024 17:21 Note Text: Subjective The history is provided by the patient. No cable splicer apprentice was used. HPI Conner Kong is a [...] to antihypertensive medication. 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 - Recent activities, including remodeling a bathroom floor and walking at [employer], have increased discomfort. BP 144/88 Pulse 82 Temp 36.8 ?C (98.2 ?F) (Tympanic) Resp 16 Wt 107.6 kg (237 lb 3.4 oz) SpO2 96% Social History Tobacco Use Smoking status: Never Smokeless tobacco: Never PAST MEDICAL HISTORY Diagnosis Date Diabetes mellitus (HCC) Essential hypertension I have confirmed and edited as necessary, the [facility] Musculoskeletal: (+) knee pain, (+) knee swelling, [...] detail warranting prompt ER evaluation. Harini Mariano APRN.[facility] 09-07-2024 History of Present illness Narrative Subjective The history is provided by the patient. No cable splicer apprentice was used. ANA Kong is a 59 [...] to antihypertensive medication. 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 - Recent activities, including remodeling a bathroom floor and walking at [employer] [place], have increased discomfort. BP 144/88 Pulse 82 Temp 36.8 C (98.2 F) (Tympanic) Resp 16 Wt 107.6 kg (237 lb 3.4 oz) SpO2 96% Social History Tobacco Use Smoking status: Never Smokeless tobacco: Never PAST MEDICAL HISTORY Diagnosis Date Diabetes mellitus (HCC) Essential hypertension I have confirmed and edited as necessary, the [facility] Musculoskeletal: (+) knee pain, (+) knee swelling, [...] Mariano APRN.CNP documented in this encounter [facility] 09-02-2024 Note HNO ID: [id number] Author: KIM TAVARES RT(R) Service: ? Author Type: Performance Improvement Consultant Type: Progress Notes Filed: 09/02/2024 11:40 Note [...] PATIENT PRESENTS WITH AN IMPLANTABLE OR ATTACHED HOME THERAPY CLINICIAN: No RADIOLOGY DEPARTMENT: General X-ray: Exam(s) Completed: Upper Extremity X-Ray(s): Fingers/Thumb, right index PERIPHERAL IV DATA: Not applicable SIGNED BY: RT Deep(R) September 02, 2024 11:31 AM [facility] 09-02-2024 Note HNO ID: [id number] Author: JOHN ANDERSON APRN.CNP Service: ? Author [...] history is provided by the patient. No cable splicer apprentice was used. Laceration Review of Systems Constitutional: [...] (Patient not taking: Reported on 07/31/2024) lancets ([email or web address] PLUS LANCET) 30 gauge Use as directed [...] was placed for further eval. John Anderson APRN.TRAFFIC SIGNAL TECHNICIAN MDM Procedures [facility] 09-02-2024 History of Present illness [...] history is provided by the patient. No cable splicer apprentice was used. Laceration Review of Systems Constitutional: [...] (Patient not taking: Reported on 07/31/2024) lancets ([employer] [email or web address].us PLUS LANCET) 30 gauge Use as directed [...] MDM Procedures documented in this encounter [facility] 07-31-2024 Note HNO ID: [id number] Author: CLARK KUHN OD Service: ? Author Type: CALL CENTER TRAINER Type: Progress Notes Filed: 07/31/2024 16:18 Note Text: 1. Type 2 diabetes mellitus without retinopathy (HCC) (Primary) Risk of diabetic changes and vision loss can be minimized by tight control of blood sugar, blood pressure, and cholesterol levels. Educated patient to continue care with primary care doctor and/or sodder to maintain optimum levels as they are [...] Kuhn, OD July 31, 2024 4:17 PM [facility] 07-31-2024 History of Present illness Narrative 1. Type 2 diabetes mellitus without retinopathy (HCC) (Primary) Risk of diabetic changes and vision loss can be minimized by tight control of blood sugar, blood pressure, and cholesterol levels. Educated patient to continue care with primary care doctor and/or sodder to maintain optimum levels as they are [...] 4:17 PM documented in this encounter [facility] 07-17-2024 Note Formatting of this n ote might be different from the original. Losartan Metformin Amlodipine Y 12/12/23 wt 238lbs ht 69in hvf Goal 218 [facility] 07-17-2024 Miscellaneous Notes Losartan Metformin Amlodipine Y 12/12/23 wt 238lbs ht 69in hvf Goal 218 documented in this encounter [facility] Evaluation note Diagnosis Type 2 diabetes mellitus without retinopathy (HCC)- Primary Type II or unspecified type diabetes mellitus without mention of complication, not stated as uncontrolled Myopia, bilateral Myopia Regular astigmatism of both eyes Regular astigmatism Presbyopia [facility] Open [facility]- Primary Open wound(s) (multiple) of unspecified site(s), without mention of complication Open wound Open wound(s) (multiple) of unspecified site(s), without mention of complication [facility] Acute pain of right knee- Primary Acute pain of right knee [facility] Acute pain of right [...] Unspecified essential hypertension [facility] Hypertension, essential Unspecified essential hypertension [facility] Upper limb injury, right, initial encounter- Primary Contusion of right elbow, initial encounter Upper limb injury, right, initial encounter [facility] Diagnosis Upper limb injury, right, initial encounter documented in this encounter [facility] for visit Narrative* Diagnostic Procedure Only (Urgent) - Closed Specialty Diagnoses / Procedures Referred By Contac t Referred To Contact XR IMAGING Diagnoses Acute pain of right knee Procedures XR KNEE INJURY 4V AP/LAT/OBLS RIGHT RADIOLOGIC EXAM KNEE COMPLETE 4/MORE VIEWS Harini Mariano, PROFESSOR OF GEOLOGY.TRAFFIC SIGNAL TECHNICIAN [address] [place] [address] Phone: tel: fax: [place] [address] Referral ID Status Reason Start Date Expiration Date V isits Requested Visits Authorized [id number] Closed Auto-Generate d Referral 09/07/2024 10/07/2025 1 1 [facility] for visit Narrative* MRI/CT (Routine) - Closed Specialty Diagnoses / Procedures Referred By Contac t Referred To Contact MR IMAGING Diagnoses Derangement of medial meniscus of right knee Procedures MRI KNEE WO IVCON RIGHT MRI ANY JT LOWER EXTREM W/O CONTRAST MATRL Jesse Torres, V, DO [address] [place] [address] Phone: tel: fax: [facility] [address] [place] [address] Referral ID Status Reason Start Date Expiration Date V isits Requested Visits Authorized [id number] Closed Auto-Generate d Referral 09/18/2024 01/01/2025 1 1 [facility] for visit Narrative* Diagnostic Procedure Only (Urgent) - Closed Specialty Diagnoses / Procedures Referred By Contac t Referred To Contact XR IMAGING Diagnoses Upper limb injury, right, initial encounter Procedures XR ELBOW SPECIAL VIEWS AP/LAT/OTHER RIGHT RADEX ELBOW COMPLETE MINIMUM 3 VIEWS Jenna Leonard, COLLEEN.TRAFFIC SIGNAL TECHNICIAN [address] [place] [address] Phone: tel: fax: [place] [address] Referral ID Status Reason Start Date Expiration Date V isits Requested Visits Authorized [id number] Closed Auto-Generate d Referral 12/20/2024 01/19/2026 1 1 [facility] Summary Purpose Family History No Family History Records FoundNo Family History Records FoundNo Family History Records Found Advance Directives No Advanced Directives Records FoundNo Advanced Directives Records FoundNo Advanced Directives Records Found Additional Source Comments (unrecognized sect ion and content) No Status Records FoundNo Status Records FoundNo Status Records Found INFORMATION SOURCE (unrecogn ized section and content) DATE CREATED AUTHOR 07/03/2019 [facility] DATE CREATED AUTHOR AUTHOR'S ORGANIZ ATION 01/04/2024 [facility] DATE CREATED AUTHOR AUTHOR'S ORGANIZ ATION 12/21/2024 [facility] Source Comments (unrecognize d section and content) In the event this informatio n is protected by the Federal Confidentiality of Alcohol and Drug Abuse Patient Records regulations: The Federal rules restrict any use of the information to criminally investigate or prosecute any alcohol or drug abuse patient.[facility] the event this information is protected by the Federal Confidentiality of Alcohol and Drug Abuse Patient Records regulations: The Federal rules restrict any use of the information to criminally investigate or prosecute any alcohol or drug abuse patient.[facility] the event this information is protected by the Federal Confidentiality of Alcohol and Drug Abuse Patient Records regulations: The Federal rules restrict any use of the information to criminally investigate or prosecute any alcohol or drug abuse patient.[facility] the event this information is protected by the Federal Confidentiality of Alcohol and Drug Abuse Patient Records regulations: The Federal rules restrict any use of the information to criminally investigate or prosecute any alcohol or drug abuse patient.[facility] the event this information is protected by the Federal Confidentiality of Alcohol and Drug Abuse Patient Records regulations: The Federal rules restrict any use of the information to criminally investigate or prosecute any alcohol or drug abuse patient.[facility] the event this information is protected by the Federal Confidentiality of Alcohol and Drug Abuse Patient Records regulations: The Federal rules restrict any use of the information to criminally investigate or prosecute any alcohol or drug abuse patient.[facility] the event this information is protected by the Federal Confidentiality of Alcohol and Drug Abuse Patient Records regulations: The Federal rules restrict any use of the information to criminally investigate or prosecute any alcohol or drug abuse patient.[facility] the event this information is protected by the Federal Confidentiality of Alcohol and Drug Abuse Patient Records regulations: The Federal rules restrict any use of the information to criminally investigate or prosecute any alcohol or drug abuse patient.[facility] the event this information is protected by the Federal Confidentiality of Alcohol and Drug Abuse Patient Records regulations: The Federal rules restrict any use of the information to criminally investigate or prosecute any alcohol or drug abuse patient.[facility] the event this information is protected by the Federal Confidentiality of Alcohol and Drug Abuse Patient Records regulations: The Federal rules restrict any use of the information to criminally investigate or prosecute any alcohol or drug abuse patient.[facility] the event this information is protected by the Federal Confidentiality of Alcohol and Drug Abuse Patient Records regulations: The Federal rules restrict any use of the information to criminally investigate or prosecute any alcohol or drug abuse patient.[facility] the event this information is protected by the Federal Confidentiality of Alcohol and Drug Abuse Patient Records regulations: The Federal rules restrict any use of the information to criminally investigate or prosecute any alcohol or drug abuse patient.[facility] the event this information is protected by the Federal Confidentiality of Alcohol and Drug Abuse Patient Records regulations: The Federal rules restrict any use of the information to criminally investigate or prosecute any alcohol or drug abuse patient.[facility]In the event this information is protected by the Federal Confidentiality of Alcohol and Drug Abuse Patient Records regulations: The Federal rules restrict any use of the information to criminally investigate or prosecute any alcohol or drug abuse patient.[facility]In the event this information is protected by the Federal Confidentiality of Alcohol and Drug Abuse Patient Records regulations: The Federal rules restrict any use of the information to criminally investigate or prosecute any alcohol or drug abuse patient.[facility]In the event this information is protected by the Federal Confidentiality of Alcohol and Drug Abuse Patient Records regulations: The Federal rules restrict any use of the information to criminally investigate or prosecute any alcohol or drug abuse patient.[facility]In the event this information is protected by the Federal Confidentiality of Alcohol and Drug Abuse Patient Records regulations: The Federal rules restrict any use of the information to criminally investigate or prosecute any alcohol or drug abuse patient.[facility] the event this information is protected by the Federal Confidentiality of Alcohol and Drug Abuse Patient Records regulations: The Federal rules restrict any use of the information to criminally investigate or prosecute any alcohol or drug abuse patient.[facility]In the event this information is protected by the Federal Confidentiality of Alcohol and Drug Abuse Patient Records regulations: The Federal rules restrict any use of the information to criminally investigate or prosecute any alcohol or drug abuse patient.[facility]In the event this information is protected by the Federal Confidentiality of Alcohol and Drug Abuse Patient Records regulations: The Federal rules restrict any use of the information to criminally investigate or prosecute any alcohol or drug abuse patient.[facility]In the event this information is protected by the Federal Confidentiality of Alcohol and Drug Abuse Patient Records regulations: The Federal rules restrict any use of the information to criminally investigate or prosecute any alcohol or drug abuse patient.[facility]healthIn the event this information is protected by [...] prosecute any alcohol or drug abuse patient.[facility] Reason for Visit (unrecogniz ed section and content) Reason Onset Date Comments Tafe Registrar - Other 07/16/2024 Reason Onset Date Comments [...] Comments Medication Problem Reason Onset Date Comments Tafe Registrar - Other 11/11/2024 Reason Onset Date Comments Refill Request 11/25/2024 Reason Onset Date Comments Care Coordination 12/09/2024 Reason Comments Trauma Right elbow shooting up arm Care Teams (unrecognized sec tion and content) Data Processing Systems Project Planner Relationship Specialty Start Date End Date Maria Elena Lucero RN [place] P Tafe Registrar 07/16/24 Data Processing Systems Project Planner Relationship Specialty Start Date End Date Maria Elena Lucero RN [place] E[facility] Tafe Registrar 07/16/24 Data Processing Systems Project Planner Relationship Specialty Start Date End Date Maria Elena Lucero RN [place] [facility] Tafe Registrar 07/16/24 Data Processing Systems Project Planner Relationship Specialty Start Date End Date Maria Elena Lucero RN [place] [facility] Tafe Registrar 07/16/24 Data Processing Systems Project Planner Relationship Specialty Start Date End Date Maria Elena Lucero RN [place] [facility] Tafe Registrar 07/16/24 Data Processing Systems Project Planner Relationship Specialty Start Date End Date Maria Elena Lucero RN [place] [facility] Tafe Registrar 07/16/24 Data Processing Systems Project Planner Relationship Specialty Start Date End Date Maria Elena Lucero RN [place] P Tafe Registrar 07/16/24 Data Processing Systems Project Planner Relationship Specialty Start Date End Date Maria Elena Lucero, RN [place] [facility] Tafe Registrar 07/16/24 Data Processing Systems Project Planner Relationship Specialty Start Date End Date Maria Elena Lucero, RN [place] [facility] [employer] Registrar 07/16/24 [employer] Project Planner Relationship Specialty Start Date End Date Maria Elena Lucero, RN [place] [facility] [employer] Registrar 07/16/24 [employer] Project Planner Relationship Specialty Start Date End Date Maria Elena Lucero, RN [place] [facility] [employer] Registrar 07/16/24 [employer] Project Planner Relationship Specialty Start Date End Date Maria Elena Lucero, RN [place] [facility] Registrar 07/16/24 [employer] Project Planner Relationship Specialty Start Date End Date Maria Elena Lucero, RN [place] [facility] Registrar 07/16/24 [employer] Project Planner Relationship Specialty Start Date End Date Maria Elena Lucero, RN [place] [facility] [employer] Registrar 07/16/24 [employer] Project Planner Relationship Specialty Start Date End Date Dami Good, DO [address] [facility] [place] [address] PCP - General Family Medicine 11/10/24 Maria Elena Lucero RN [place] [facility] [employer] Registrar 07/16/24 [employer] Project Planner Relationship Specialty Start Date End Date Dami Good, [address] [facility] [place] [address] PCP - General Family Medicine 11/10/24 Maria Elena Lucero RN [place] [facility] [employer] Registrar 07/16/24 [employer] Project Planner Relationship Specialty Start Date End Date Dami Good, [address] [facility] [place] [address] PCP - General Family Medicine 11/10/24 Maria Elena Lucero RN [place] [facility] [employer] Registrar 07/16/24 [employer] Project Planner Relationship Specialty Start Date End Date Dami Good, [address] [facility] [place] [address] PCP - General Family Medicine 11/10/24 Maria Elena Lucero, RN [place] [facility] [employer] Registrar 07/16/24 Lila Magallanes, PROFESSOR OF GEOLOGY.TRAFFIC SIGNAL TECHNICIAN [address] [facility] [place] [address] [facility] 11/17/24 Meg Scherer, PROFESSOR OF GEOLOGY.TRAFFIC SIGNAL TECHNICIAN [address] [place] [address] [facility] 11/17/24 [employer] Project Planner Relationship Specialty Start Date End Date Dami Good DO [address] [place] [address] PCP - General Family Medicine 11/10/24 Maria Elena Lucero RN [facility] Tafe Registrar 07/16/24 Lila Magallanes, PROFESSOR OF GEOLOGY.TRAFFIC SIGNAL TECHNICIAN [address] [place] [address] [facility] 11/17/24 Meg Scherer, PROFESSOR OF GEOLOGY.TRAFFIC SIGNAL TECHNICIAN [address] [place] [address] [facility] 11/17/24 Data Processing [employer] Project Planner Relationship Specialty Start Date End Date Dami Good DO [address] [place] [address] PCP - General Family Medicine 11/10/24 Maria Elena Lucero RN [facility] Tafe Registrar 07/16/24 Lila Magallanes, PROFESSOR OF GEOLOGY.TRAFFIC SIGNAL TECHNICIAN [address] [facility] [place] [address] [facility] 11/17/24 Meg Scherer, PROFESSOR OF GEOLOGY.TRAFFIC SIGNAL TECHNICIAN [address] [place] [address] [facility] 11/17/24 [employer] Project Planner Relationship Specialty Start Date End Date Dami Good DO [address] [place], [place] [id number] PCP - General Family Medicine 11/10/24 Maria Elena [facility] RN [facility] Tafe Registrar 07/16/24 Lila Magallanes APRN.TRAFFIC SIGNAL TECHNICIAN [address] [place], [place] [id number] [facility] 11/17/24 Meg Scherer, COLLEEN.TRAFFIC SIGNAL TECHNICIAN [address] [place] [address] [facility] 11/17/24 FOR RECORDS PERTAINING TO PATIENTS [...] BE BASED ON THE PRIMARY CLINICAL RECORDS. [facility] [employer] provides no warranty or guarantee of the accuracy or completeness of information in this document.
--- NOTE | 2024-12-21 22:49 | EX.ED.UPPERE ---
HPI History of Present Illness Chief Complaint: Upper Extremity Injury Narrative Narrative: Patient is a 59-year-old male with past medical history of diabetes, hypertension, arthritis who presented to the emergency department the chief complaint of right elbow pain. Patient notes that he slipped on the floor in his garage yesterday landing on his right elbow. He states that he went to urgent care and they state that the x-ray was negative and did not show any broken bones. He states that today is more painful for him especially in his triceps region and noted that it became red and swollen in that area that was warm to the touch. He states that his spouse was concerned that he may have a cellulitis developing and given his history of diabetes brought in here to be further evaluated. [facility] Medical History Arthritis Hypertension Home Medications ?Medication ?Instructions ?Recorded ?Last Taken ?Type amlodipine 5 mg tablet 5 mg PO BID 12/21/24 Unknown History doxycycline hyclate 100 mg capsule 100 mg PO BID 5 days #10 caps 12/21/24 Unknown Rx losartan 100 mg tablet 100 mg PO DAILY 12/21/24 Unknown History metformin 500 mg tablet 500 mg PO BID 12/21/24 Unknown History ondansetron 4 mg disintegrating 4 mg PO Q6H PRN nausea and 12/21/24 Unknown Rx tablet vomiting #20 tabs oxycodone-acetaminophen 5 mg-325 1 tab PO Q6H PRN pain 2 days #8 12/21/24 Unknown Rx mg tablet (Endocet) tabs Allergy/AdvReac Type Severity Reaction Status Date / Time lisinopril Allergy Angioedema Verified 12/21/24 21:30 Penicillins Allergy Unknown Verified 12/21/24 21:30 Social History Smoking Status: Never smoker ROS ROS ED ROS Narrative Constitutional: Denies any fevers or chills denies headaches Neurological: Denies any numbness, wheeze, tingling Musculoskeletal: Complains of right elbow pain redness and swelling Skin: Complains of redness above the right elbow as noted above EXAM Physical Exam Narrative Exam Narrative: General: Patient lying in bed rest comfortably did not appear to be in acute distress Head: Atraumatic, normocephalic Eyes: PERRL bilaterally, EOMI bilateral, no conjunctival injection noted Neck: Soft, supple, trachea midline Cardiovascular: Regular rate and rhythm no murmurs gallops rubs noted Respiratory: Clear to auscultation bilaterally Musculoskeletal: Patient has no pain with range of motion of his right elbow no concern for septic joint. Patient has tenderness to palpation just proximal to his right elbow. Negative empty can test. Patient was unable to fully extend his right elbow on his own but could do it with assistance with his left hand secondary to pain in his triceps region Extremities: Radial pulses +2/4 in the bilateral extremities, +5/5 strength noted in the left upper extremity the and +4/5 strength noted in the right upper extremity secondary to tricep pain, compartments are soft compressible. Neurological: Patient follow commands that he was at [facility] year is 2024 sensation grossly intact in the median ulnar radial nerve distribution bilaterally Skin: Warm, dry, intact, patient has mild erythema and warmth just proximal to his right elbow Const Vital Signs: 12/21/24 21:27 Temperature 98.1 F Temperature Source Oral Pulse Rate 80 Respiratory Rate 18 Blood Pressure 168/92 H Blood Pressure Mean 117 Pulse Ox 98 Oxygen Delivery Method Room Air MDM MDM MDM Narrative Medical decision making narrative: Patient is a 59-year-old male who presented to the emergency department with a chief complaint of right elbow pain and swelling. On the differential diagnosis includes but not limited to cellulitis, olecranon bursitis although have low suspicion for this, septic joint however have low suspicion for this as well, triceps tendon tear. Once the workup is obtained reviewed he will be reevaluated. Patient's x-ray of his elbow reviewed by myself and by radiology which showed acute displaced/retracted avulsion fracture from the dorsal olecranon process at the triceps tendon insertion presumed at least partial tricep tendon rupture. Discussed this case with on-call orthopedic surgeon Dr. Short who states that the patient to be placed in a sling which she already has at bedside he was advised to continue to wear this. Patient was given a dose of doxycycline here in the emergency department as they are concerned that he has cellulitis and given his diabetes they do not want this to worsen he will given a short prescription of this as well. He was advised to follow-up with orthopedics patient setting. I did offer him a pain pill prior to discharge and he states that he will be okay for the evening as the pharmacy is closed. He is advised to continue to rotate Tylenol and ibuprofen [id number] for mild to moderate pain and use the Endocet and Zofran for severe pain. He is encouraged return with worsening symptoms or concerns. He is agreeable this plan as well as significant other all question concerns answered he is discharged home in stable condition. Radiography Diagnostic Testing: Clinical Impression(s) from Imaging Studies Elbow X-Ray 12/21/24 22:00 IMPRESSION: Acute displaced/retracted avulsion fracture of enthesopathic spur fragments from the dorsal olecranon process at the triceps tendon insertion. Presumed at least partial triceps rupture. Reading Location: [id number] Discharge Plan Triage Chief Complaint: Upper Extremity Injury ED Provider: Osmar Mahajan Dx/Rx/DC Orders Clinical Impression: Avulsion fracture, Elbow pain, right, Traumatic rupture of right triceps tendon Prescriptions: New doxycycline hyclate 100 mg capsule 100 mg PO BID 5 Days Qty: 10 0RF oxycodone-acetaminophen [Endocet] 5-325 mg tablet 1 tab PO Q6H PRN (Reason: pain) 2 Days Qty: 8 0RF ondansetron 4 mg tablet,disintegrating 4 mg PO Q6H PRN (Reason: nausea and vomiting) Qty: 20 0RF No Action metformin 500 mg tablet 500 mg PO BID amlodipine 5 mg tablet 5 mg PO BID losartan 100 mg tablet 100 mg PO DAILY Primary Care Provider: Dami Good Referrals: Dami Good DO [Primary Care Provider] - Jagdeep Short MD [Med Staff - Active Staff] - Activity Restrictions/Additional Instructions: Remain in your sling. Follow-up with orthopedics in outpatient setting. Return with worsening symptoms or any concerns. Rotate Tylenol and ibuprofen [id number] when you do this she can take something every 3 hours for pain max dose of Tylenol in 24 hours 4000 mg. Max dose of ibuprofen in 24 hours 3200 mg. Use the Endocet and Zofran for severe pain. Do not operate anything under the influence of the Endocet. Take antibiotics as prescribed. Print Language: Latvian Disposition Disposition: Home, Self Care
[2024-12-21 22:51] VITALS: BP 132/66; PULSE 89; RESP 12; TEMP 36.6; O2SAT 100
--- NOTE | 2024-12-21 22:55 | CONS.ORTHO ---
HPI Consult Data Date of Consult: 12/21/24 HPI Narrative HPI Narrative: CONNER KONG, is a 59 M who presents with a concern R triceps tear. Called this evening to ask about immmobilization and FU (around 1045pm) [facility] Medical History Arthritis Hypertension Home Medications ?Medication ?Instructions ?Recorded ?Last Taken ?Type amlodipine 5 mg tablet 5 mg PO BID 12/21/24 Unknown History losartan 100 mg tablet 100 mg PO DAILY 12/21/24 Unknown History metformin 500 mg tablet 500 mg PO BID 12/21/24 Unknown History Allergy/AdvReac Type Severity Reaction Status Date / Time lisinopril Allergy Angioedema Verified 12/21/24 21:30 Penicillins Allergy Unknown Verified 12/21/24 21:30 Social History Smoking Status: Never smoker Vital Signs Vital Signs Vital Signs: 12/21/24 21:27 12/21/24 22:51 Temperature 98.1 F 97.9 F Temperature Source Oral Pulse Rate 80 89 Respiratory Rate 18 12 Blood Pressure 168/92 H 132/66 H Blood Pressure Mean 117 88 Pulse Ox 98 100 Oxygen Delivery Method Room Air Weight Weight: 231 lb 8 oz Body Mass Index (BMI) 36.2 Imaging Radiology Impression Elbow X-Ray 12/21/24 22:00 IMPRESSION: Acute displaced/retracted avulsion fracture of enthesopathic spur fragments from the dorsal olecranon process at the triceps tendon insertion. Presumed at least partial triceps rupture. Reading Location: [id number] agree, possible avulsion of the triceps Assessment & Plan Assessment/Plan (1) Traumatic rupture of right triceps tendon: PLAN: 59 M with concern for acute traumatic R triceps avulsion. Sling and FU this week in clinic. no concern for open injury per ED provider.
--- NOTE | 2024-12-21 22:55 | CONS.ORTHO ---
HPI Consult Data Date of Consult: 12/21/24 HPI Narrative HPI Narrative: CONNER KONG, is a 59 M who presents with a concern R triceps tear. Called this evening to ask about immmobilization and FU (around 1045pm) [facility] Medical History Arthritis Hypertension Home Medications ?Medication ?Instructions ?Recorded ?Last Taken ?Type amlodipine 5 mg tablet 5 mg PO BID 12/21/24 Unknown History losartan 100 mg tablet 100 mg PO DAILY 12/21/24 Unknown History metformin 500 mg tablet 500 mg PO BID 12/21/24 Unknown History Allergy/AdvReac Type Severity Reaction Status Date / Time lisinopril Allergy Angioedema Verified 12/21/24 21:30 Penicillins Allergy Unknown Verified 12/21/24 21:30 Social History Smoking Status: Never smoker Vital Signs Vital Signs Vital Signs: 12/21/24 21:27 12/21/24 22:51 Temperature 98.1 F 97.9 F Temperature Source Oral Pulse Rate 80 89 Respiratory Rate 18 12 Blood Pressure 168/92 H 132/66 H Blood Pressure Mean 117 88 Pulse Ox 98 100 Oxygen Delivery Method Room Air Weight Weight: 231 lb 8 oz Body Mass Index (BMI) 36.2 Imaging Radiology Impression Elbow X-Ray 12/21/24 22:00 IMPRESSION: Acute displaced/retracted avulsion fracture of enthesopathic spur fragments from the dorsal olecranon process at the triceps tendon insertion. Presumed at least partial triceps rupture. Reading Location: [id number] agree, possible avulsion of the triceps Assessment & Plan Assessment/Plan (1) Traumatic rupture of right triceps tendon: PLAN: 59 M with concern for acute traumatic R triceps avulsion. Sling and FU this week in clinic. no concern for open injury per ED provider.
== END 2024-12-21 23:03 | disposition home or self-care (01) ==
PROVIDERS: Emergency Provider Emergency Medicine; PCP Student in an Organized Health Care Education/Training Program; Visit Provider Emergency Medicine
DX: S52.021A Displaced fracture of olecranon process without intraarticular extension of right ulna, initial encounter for closed fracture (principal); E11.9 Type 2 diabetes mellitus without complications; Z79.84 Long term (current) use of oral hypoglycemic drugs; I10 Essential (primary) hypertension; M25.521 Pain in right elbow; Z79.899 Other long term (current) drug therapy; W01.0XXA Fall on same level from slipping, tripping and stumbling without subsequent striking against object, initial encounter; Y92.015 Private garage of single-family (private) house as the place of occurrence of the external cause; S46.311A Strain of muscle, fascia and tendon of triceps, right arm, initial encounter
CPT/HCPCS: 73080; 96372; 99282